=== PATIENT | male | born 1960 | race Caucasian/White ===

== ENCOUNTER → 2016-04-02 | Outpatient (CLI) | payer OTHER ==
[~2016-04-02] MED LIST: AGM875T PO; AMLO5TAB4 PO; ASPI81TA55 PO; CHOL100048 PO; CLON0.1T PO; CYAN500T2 PO; ESOM20TA PO; HYDR1TAB3 PO; HYDR25TA4 PO; NEBI1TAB PO; NF-ESOM40C PO; NFVALS90T PO; OMEG-109 PO; PEDI300T11 PO; VALS1TAB PO; VALS320T8 PO
--- NOTE | 2016-04-02 12:10 | Diagnostic Imaging Report ---
PROCEDURE: US Carotid Duplex Bilateral. TECHNIQUE: Multiple real-time grayscale images were obtained over the carotid arteries in various projections bilaterally. Additional duplex Doppler and color Doppler images were also obtained. INDICATION: Hypertension. Altered mental status. FINDINGS: There is mild plaque seen at the carotid bifurcation bilaterally seen on the grayscale images. Color Doppler demonstrates patency of the common, internal and external carotid arteries bilaterally. There is antegrade flow demonstrated in the vertebral arteries. Peak systolic velocities in the ICA on the right side are 93 cm/s, 92 cm/s and 104 cm/s. Velocities on the left are 88 cm/s, 85 cm/s and 77 cm/s from proximal to distal. ICA/CCA ratios are up to 0.9 on the right side and up to 0.8 on the left. Estimated underlying stenosis would be in the range of 0-25% bilaterally. IMPRESSION: Minimal atherosclerotic plaque with no significant underlying stenosis. Dictated by: Dictated on workstation # [id number]
== END ==
LOC: RAD 10:45
PROVIDERS: ATTEND Family Medicine
DX: I65.23 Occlusion and stenosis of bilateral carotid arteries (principal); I10 Essential (primary) hypertension
CPT/HCPCS: 93880

== ENCOUNTER 2016-04-23 19:50 | Observation (INO) | payer OTHER ==
[~2016-04-23] VITALS: Ht 172.7 cm; Wt 93.2 kg
[~2016-04-23 19:50] MED LIST changes: -AMLO5TAB4 PO; -ASPI81TA55 PO; -CHOL100048 PO; -CLON0.1T PO; -CYAN500T2 PO; -ESOM20TA PO; -HYDR25TA4 PO; -NEBI1TAB PO; -NFVALS90T PO; -OMEG-109 PO; -PEDI300T11 PO; -VALS1TAB PO
[2016-04-23] MEDS ORDERED: ASPI81TA55 PO (20:02)
[2016-04-23] MEDS ORDERED: CLON0.1T PO (20:05)
--- NOTE | 2016-04-23 20:12 | ED Cardiac General ---
History of Present Illness General Chief Complaint: Cardiac/General Problems Stated Complaint: CHEST DISCOMFORT/BP ISSUES Source: patient Exam Limitations: no limitations (SHANNON AL APRN) History of Present Illness Time seen by provider: 20:08 Initial Comments To ER with reports of hypertension, tachycardia, left-sided chest pain that radiates through to his back. This began a few hours ago around 5 p.m. He states he's had intermittent posterior headaches in the back of his neck and feels as though his hair is standing on end since March 22. 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 States he also had a CT scan of his head which he was told was normal. Since that time he's had this persistent feeling of "being unwell". Tonight while cooking dinner he had a sensation of intense anxiety, felt flushed and found his blood pressure to be elevated. He also had left-sided chest pain. He is a lifelong nonsmoker. Father had a heart attack at the age of 61. Primary care is Dr. Lizabeth Escudero. He is scheduled to see Dr. Olmedo in about 1 month for evaluation. Only medication is Diovan. He was given a prescription for amlodipine at the [facility] but only took it for a few days because of feeling poorly when taking it. He does have a prescription for when necessary clonidine also written by the [facility] which he has not yet used since being prescribed this on March 22. Timing/Duration: 1-3 hours, intermittent Severity: moderate Location: central Prior CP/Workup: angina NTG SL COATER SLATE: No ASA po COATER SLATE: No Associated Systoms: Chest PainNo Cough, No Diaphoresis, No Fever/Chills (SHANNON AL APRN) Allergies and Home Medications Allergies Coded Allergies: No Known Drug Allergies (Unverified , 12/24/10) Home Medications Aspirin 81 Mg Tablet. 81 MG PO DAILY (Reported) Clonidine HCl 0.1 Mg Tablet #30 0.1 MG PO PRN PRN PRN SYSTOLIC BLOOD PRESSURE ( Reported) available for days of elevated BP Esomeprazole Mag Trihydrate 40 Mg Capsule. #30 1 CAP PO DAILY (Reported) Valsartan 320 Mg Tablet 1 EACH PO DAILY (Reported) Review of Systems Constitutional: see HPI EENTM: No Symptoms Reported Respiratory: No Symptoms Reported Cardiovascular: See HPI Chest Pain Gastrointestinal: No Symptoms Reported Genitourinary: No Symptoms Reported Musculoskeletal: no symptoms reported Skin: no symptoms reported Psychiatric/Neurological: No Symptoms Reported Endocrine: No Symptoms Reported Hematologic/Lymphatic: No Symptoms Reported (SHANNON AL APRN) Psychiatric/Neurological: See HPIDenies Headache, Tingling (TRISH WINSTON MD) All Other Systems Reviewed Negative Unless Noted: Yes (TRISH WINSTON MD) Past Hoxncby-Hxrmuo-Ufvpty Hx Immunizations Up To Date Tetanus Booster (TDap): Unknown (SHANNON AL APRN) Surgeries HX Surgeries: Yes (acl repair bilat knees) (SHANNON AL APRN) Respiratory Hx Respiratory Disorders: No (SHANNON AL APRN) Cardiovascular Hx Cardiac Disorders: Yes (SHANNON AL APRN) Neurological Hx Neurological Disorders: No (SHANNON AL APRN) Reproductive System Hx Reproductive Disorders: No Sexually Transmitted Disease: No HIV/AIDS: No (SHANNON AL APRN) Genitourinary Hx Genitourinary Disorders: No (SHANNON AL APRN) Gastrointestinal Hx Gastrointestinal Disorders: Yes Gastrointestinal Disorders: Gastroesophageal Reflux (SHANNON AL APRN) Endocrine Hx Endocrine Disorders: No (SHANNON AL APRN) HEENT HX ENT Disorders: No (SHANNON AL APRN) Cancer Hx Cancer: No (SHANNON AL APRN) Psychosocial Hx Psychiatric Problems: No (SHANNON AL APRN) Integumentary HX Skin/Integumentary Disorder: No (SHANNON AL APRN) Blood Transfusions Hx Blood Disorders: No (SHANNON AL APRN) Reviewed Nursing Assessment Reviewed/Agree w Nursing PMH: Yes (TRISH WINSTON MD) Family Medical History Significant Family History: No Pertinent Family Hx (SHANNON AL APRN) Significant Family History: CAD Over 55 Years Old (TRISH WINSTON MD) Physical Exam Vital Signs Vital Sign - Last 12Hours 04/23/16 19:52 Temp 98.2 Pulse 68 Resp 16 B/P 175/105 Pulse Ox 97 O2 Delivery Room Air (TRISH WINSTON MD) Vital Signs Capillary Refill : (SHANNON AL APRN) General Appearance: No Apparent Distress WD/WN Anxious Other (he appears anxious, talking quickly and extensively about his 1-2 month history of symptoms ) HEENT: PERRL/EOMI TMs Normal Neck: Full Range of Motion Normal Inspection Respiratory: Chest Non Tender Lungs Clear Normal Breath Sounds No Accessory Muscle Use No Respiratory Distress Cardiovascular: Regular Rate, Rhythm Normal Peripheral Pulses Neurologic/Psychiatric: Alert Oriented x3 No Motor/Sensory Deficits Skin: Normal Color Warm/Dry (SHANNON AL APRN) Gastrointestinal: Non Tender Soft Extremity: Non Tender No Calf Tenderness No Pedal Edema (TRISH WINSTON MD ) Progress/Results/Core Measures Results/Orders Lab Results Laboratory Tests Test 04/23/16 19:56 04/23/16 20:56 Range/Units Activated Partial Thromboplast Time 26 24-35 SEC Alanine Aminotransferase (ALT/SGPT) 48 0-55 U/L Albumin 4.8 H 3.2-4.5 G/DL Alkaline Phosphatase 57 40-136 U/L Anion Gap 11 5-14 MMOL/L Aspartate Amino Transf (AST/SGOT) 38 H 5-34 U/L BUN/Creatinine Ratio 10 Basophils # (Auto) 0.0 0.0-0.1 10^3/uL Basophils (%) (Auto) 0 0-10 % Blood Urea Nitrogen 10 7-18 MG/DL Calcium Level 9.4 8.5-10.1 MG/DL Carbon Dioxide Level 21 21-32 MMOL/L Chloride Level 106 98-107 MMOL/L Creatinine 1.02 0.60-1.30 MG/DL D-Dimer < 0.27 0.00-0.49 UG/ML Eosinophils # (Auto) 0.5 H 0.0-0.3 10^3/uL Eosinophils (%) (Auto) 6 0-10 % Erythrocyte Sedimentation Rate 3 0-30 MM/HR Estimat Glomerular Filtration Rate > 60 Glucose Level 99 70-105 MG/DL Hematocrit 42 40-54 % Hemoglobin 15.2 13.3-17.7 G/DL INR Comment 1.0 0.8-1.4 Lymphocytes # (Auto) 2.1 1.0-4.0 X 10^3 Lymphocytes (%) (Auto) 25 12-44 % Magnesium Level 2.8 H 1.8-2.4 MG/DL Mean Corpuscular Hemoglobin 33 25-34 PG Mean Corpuscular Hemoglobin Concent 36 32-36 G/DL Mean Corpuscular Volume 91 80-99 FL Mean Platelet Volume 12.1 H 7.4-10.4 FL Monocytes # (Auto) 0.6 0.0-1.0 X 10^3 Monocytes (%) (Auto) 7 0-12 % Myoglobin 98.7 H 10.0-92.0 NG/ML Neutrophils # (Auto) 5.1 1.8-7.8 X 10^3 Neutrophils (%) (Auto) 62 42-75 % Platelet Count 172 130-400 10^3/uL Potassium Level 5.0 3.6-5.0 MMOL/L Prothrombin Time 12.6 12.2-14.7 SEC Red Blood Count 4.67 4.35-5.85 10^6/uL Red Cell Distribution Width 12.3 10.0-14.5 % Sodium Level 138 135-145 MMOL/L Total Bilirubin 1.0 0.1-1.0 MG/DL Total Protein 7.7 6.4-8.2 G/DL Troponin I < 0.30 < 0.30 <0.30 NG/ML White Blood Count 8.3 4.3-11.0 10^3/uL C-Reactive Protein High Sensitivity 0.11 0.00-0.50 MG/DL Lipase 17 8-78 U/L (TRISH WINSTON MD) Medications Given in ED Current Medications Medications Dose Ordered Sig/Kelly Route Start Time Stop Time Status Last Admin Dose Admin Aspirin 324 mg ONCE ONCE PO 04/23/16 20:15 04/23/16 20:16 DC 04/23/16 20:30 324 MG Lorazepam 0.5 mg ONCE ONCE IVP 04/23/16 20:15 04/23/16 20:16 DC 04/23/16 20:30 0.5 MG (TRISH WINSTON MD) Vital Signs/I&O Vital Sign - Last 12Hours 04/23/16 04/23/16 19:52 20:30 Temp 98.2 98.2 Pulse 68 Resp 16 B/P 175/105 Pulse Ox 97 O2 Delivery Room Air (TRISH WINSTON MD) Progress Note : Progress Note I have seen and evaluated the patient and agree with above except as indicated. I have reviewed and agree with plan of care. I have discussed the case with Shannon Al APRN. We will rule out cardiac abnormalities as well as evaluate d -dimer and CRP/sedimentation rate. EKG does not show any significant findings. Chest x-ray is negative. We will repeat troponin and EKG and anticipate follow-up with Dr. Olmedo sooner than 1 month. Patient's findings and concerns discussed with Dr. Olmedo by Shannon Al APRN. Dr. Olmedo would like to put him in overnight for observation with probable stress test in the morning. Patient agrees with plan. (TRISH WINSTON MD) Diagnostic Imaging Diagonstic Imaging: Xray Plain Films/CT/US/NM/MRI: chest Comments VIA [facility] [place], [place] NAME: [facility] REC#: [id number] PT STATUS: REG ER : 1960 PHYSICIAN: SHANNON AL APRN ADMIT DATE: 04/23/16/ER Draft Date of Exam:04/23/16 CHEST 1 VIEW, AP/PA ONLY INDICATION: Blood pressure elevation. Doesn't feel well. EXAMINATION: Chest 04/23/2016 COMPARISON: 09/26/2015. FINDINGS: The heart is minimally prominent. The pulmonary vasculature is normal in appearance. The lungs appear clear. No infiltrates or effusions are seen. There is no pneumothorax. IMPRESSION: There is no acute process. Dictated on workstation # [id number] Dict: 04/23/162047 Trans: 04/23/162058 [facility] [id number] Interpreted by: CARMELO MCCOY MD Electronically signed by: (TRISH WINSTON MD) Departure Communication Time/Spoke to Admitting Phy: 22:[address] Olmedo. We will admit the patient Progress Notes 2211-patient reports that he feels much better at this time. He was given 324 mg of aspirin and 0.5 g of Ativan IV while in the emergency room. On arrival blood pressure 160/100, currently 139/87. (SHANNON AL APRN) Impression Impression: Primary Impression: Hypertension Additional Impression: Chest pain Disposition: ADMITTED INPATIENT Condition: Stable Decision to Admit Reason: Admit from ER (General) Decision to Admit/Date: Apr 23, 2016 Time/Decision to Admit Time: 22:16 (SHANNON AL APRN) Departure-Patient Inst. Referrals: LIZABETH ESCUDERO MD (PCP/Family) Primary Care Physician SHANNON AL APRN Apr 23, 2016 20:11 TRISH WINSTON MD Apr 23, 2016 21:27 Referrals: LIZABETH ESCUDERO MD (PCP/Family) Primary Care Physician SHANNON AL APRN Apr 23, 2016 20:11 TRISH WINSTON MD Apr 23, 2016 21:27
[2016-04-23 20:13] LABS: BASOPHILS % (AUTO) 0 % (0-10); EOSINOPHILS # (AUTO) 0.5 10^3/uL (0.0-0.3); EOSINOPHILS % (AUTO) 6 % (0-10); LYMPHOCYTES # (AUTO) 2.1 X 10^3 (1.0-4.0); LYMPHOCYTES % (AUTO) 25 % (12-44); MEAN CORPUSCULAR HEMOGLOBIN 33 PG (25-34); MEAN CORPUSCULAR HGB CONC 36 G/DL (32-36); MEAN CORPUSCULAR VOLUME 91 FL (80-99); MEAN PLATELET VOLUME 12.1 FL (7.4-10.4); MONOCYTES # (AUTO) 0.6 X 10^3 (0.0-1.0); MONOCYTES % (AUTO) 7 % (0-12); NEUTROPHILS # (AUTO) 5.1 X 10^3 (1.8-7.8); NEUTROPHILS % (AUTO) 62 % (42-75); PLATELET COUNT 172 10^3/uL (130-400); RED BLOOD COUNT 4.67 10^6/uL (4.35-5.85); RED CELL DISTRIBUTION WIDTH 12.3 % (10.0-14.5); WHITE BLOOD COUNT 8.3 10^3/uL (4.3-11.0)
[2016-04-23] MEDS ORDERED: LORazepam INJ 2 MG/ML (ATIVAN) VIAL IVP ONE (20:15)
[2016-04-23] MEDS ORDERED: ASPIRIN 81 MG CHEW (CHILDREN'S ASA) PO ONE (20:15)
[2016-04-23 20:16] LABS: PROTHROMBIN TIME PATIENT 12.6 SEC (12.2-14.7)
[2016-04-23 20:25] LABS: ALANINE AMINOTRANSFERASE 48 U/L (0-55); ALBUMIN 4.8 G/DL (3.2-4.5); ANION GAP 11 MMOL/L (5-14); ASPARTATE AMINO TRANSFERASE 38 U/L (5-34); BLOOD UREA NITROGEN 10 MG/DL (7-18); BUN/CREATININE RATIO 10; CALCIUM 9.4 MG/DL (8.5-10.1); CARBON DIOXIDE 21 MMOL/L (21-32); CHLORIDE 106 MMOL/L (98-107); CREATININE SERUM 1.02 MG/DL (0.60-1.30); GFR ESTIMATED > 60; GLUCOSE 99 MG/DL (70-105); MAGNESIUM 2.8 MG/DL (1.8-2.4); SODIUM 138 MMOL/L (135-145); TOTAL PROTEIN 7.7 G/DL (6.4-8.2)
[2016-04-23 20:31] LABS: MYOGLOBIN SERUM 98.7 NG/ML (10.0-92.0)
--- NOTE | 2016-04-23 20:59 | Diagnostic Imaging Report ---
INDICATION: Blood pressure elevation. Doesn't feel well. EXAMINATION: Chest 04/23/2016 COMPARISON: 09/26/2015. FINDINGS: The heart is minimally prominent. The pulmonary vasculature is normal in appearance. The lungs appear clear. No infiltrates or effusions are seen. There is no pneumothorax. IMPRESSION: There is no acute process. Dictated by: Dictated on workstation # [id number]
[2016-04-23 21:28] LABS: LIPASE 17 U/L (8-78); hs C REACTIVE PROTEIN 0.11 MG/DL (0.00-0.50)
[2016-04-23 21:34] LABS: TROPONIN I < 0.30 NG/ML (<0.30)
[2016-04-23 23:20] VITALS: BP 124/86
[2016-04-24] VITALS: BP 127/92
[2016-04-24 04:00] VITALS: BP 132/85
[2016-04-24 04:55] LABS: CHOLESTEROL 141 MG/DL (< 200); DIRECT LDL 71 MG/DL (1-129); TRIGLYCERIDES 419 MG/DL (<150); VLDL CHOLESTEROL 84 MG/DL (5-40)
--- NOTE | 2016-04-24 06:54 | Cardiology History & Physical ---
HPI-Cardiology Cardiology Consultation Date of Consultation 04/24/16 Date of Admission Indication: chest pain HPI 56-year-old gentleman with history of hypertension, has been having episodes of lightheadedness and dizziness, reported one episode while he was driving her motorcycle, he felt weird then he noticed that he has changed laying, continue to feel shaky until he got home, had another episode while he was traveling with his . Blood sugar and blood pressure were okay. Has been having occasional episodes of chest pain, came into the emergency room with mild chest discomfort, denied any palpitation, denied any full syncope. Patient is fairly concerned about his condition, expressed that he did not feel normal for the last 2-3 months. Father had history of heart disease, patient suffer from snoring, no known history of sleep apnea PMH-Cardiology Immunizations Up To Date Tetanus Booster (DTap): Unknown Seasonal Allergies Seasonal Allergies: Yes Surgeries HX Surgeries: Yes (acl repair bilat knees, hernia surgeries (umbilical mad inguinal)) Respiratory Hx Respiratory Disorders: No Cardiovascular Hx Cardiovascular Disorders: Yes Cardiac Disorders: Hypertension Neurological Hx Neurological Disorders: No Reproductive System Hx Reproductive Disorders: No Sexually Transmitted Disease: No HIV/AIDS: No Genitourinary Hx Genitourinary Disorders: No Gastrointestinal Hx Gastrointestinal Disorders: Yes Gastrointestinal Disorders: Gastroesophageal Reflux Musculoskeletal Hx Musculoskeletal Disorders: No Endocrine Hx Endocrine Disorders: No HEENT HX ENT Disorders: No Cancer Hx Cancer: No Psychosocial Hx Psychiatric Problems: No Integumentary HX Skin/Integumentary Disorder: No Blood Transfusions Hx Blood Disorders: No Other PMHx Other PMHx: hypertension Social History Patient Social History Marrital Status: Employed/Student: employed Alcohol Use: Occasionally Uses Recreational Drug Use: No Smoking: Never smoker Recent Foreign Travel: No Contact w/other who traveled: No Recent Infectious Disease Expo: No Family Hx Significant Family History: CAD Over 55 Years Old Family History: Abdominal aortic aneurysm 19 MOTHER, , Age:62, Onset:60 years & older Myocardial infarction 19 FATHER, , Age:61, Onset:60 years & older ROS-Cardiology Review of Systems General: No Chills, No Night Sweats, Fatigue MalaiseNo Appetite HEENT: No Head Aches, No Visual Changes, No Eye Pain, No Ear Pain, No Dysphasia , No Sinus Congestion, No Post Nasal Drip, No Sore Throat Pulmonary: No Dyspnea, No Cough, No Pleuritic Chest Pain Cardiovascular: : Chest Pain: Lt HeadednessNo: Edema, Orthopnea, Palpitations, Paroxysmal Noc. Dyspnea Gastrointestinal: No: Abdominal Pain, Constipation, Diarrhea, Hematochezia, Melena, Nausea, Vomiting Genitourinary: No Dysuria, No Frequency, No Incontinence, No Hematuria, No Retention Musculoskeletal: No: arm pain, back pain, foot pain, hand pain, leg pain, neck pain, shoulder pain Neurological: No: Change in speech, Confusion, Incoordination, Numbness, Seizures, Weakness Home Medications & Allergies Allergies: Coded Allergies: No Known Drug Allergies (Unverified , 12/24/10) Home Medication List Reviewed: Yes Exam-Cardiology Vital Signs Vital Signs Date Time Temp Pulse Resp B/P Pulse Ox O2 Delivery O2 Flow Rate FiO2 04/24/16 04:00 95 Room Air 04/24/16 04:00 97.4 54 16 132/85 Exam General Appearance: Alert, Oriented X3, Cooperative, No Acute Distress HEENT: Atraumatic, PERRLA Respiratory: Clear to Auscultation, Normal Air Movement Cardiovascular: Regular Rate, Normal S1, Normal S2, No Murmurs Abdominal: Normal Bowel Sounds, Soft, No Tenderness, No Hepatosplenomegaly, No Masses Extremities: No Clubbing, No Cyanosis, No Edema, Normal Pulses, No Tenderness/ Swelling Skin: No Rashes, No Breakdown, No Significant Lesion Neuro: Normal Gait, Normal Speech, Strength at 5/5 X4 Ext, Normal Tone, Sensation Intact Psych/Mental Status: Mental Status NL, Mood NL Results Labs Labs Laboratory Tests 04/23/16 19:56: Activated Partial Thromboplast Time 26, Alanine Aminotransferase (ALT/SGPT) 48, Albumin 4.8H, Alkaline Phosphatase 57, Anion Gap 11, Aspartate Amino Transf (AST /SGOT) 38H, BUN/Creatinine Ratio 10, Basophils # (Auto) 0.0, Basophils (%) (Auto ) 0, Blood Urea Nitrogen 10, Calcium Level 9.4, Carbon Dioxide Level 21, Chloride Level 106, Creatinine 1.02, D-Dimer < 0.27, Eosinophils # (Auto) 0.5H, Eosinophils (%) (Auto) 6, Erythrocyte Sedimentation Rate 3, Estimat Glomerular Filtration Rate > 60, Glucose Level 99, Hematocrit 42, Hemoglobin 15.2, INR Comment 1.0, Lymphocytes # (Auto) 2.1, Lymphocytes (%) (Auto) 25, Magnesium Level 2.8H, Mean Corpuscular Hemoglobin 33, Mean Corpuscular Hemoglobin Concent 36, Mean Corpuscular Volume 91, Mean Platelet Volume 12.1H, Monocytes # (Auto) 0.6, Monocytes (%) (Auto) 7, Myoglobin 98.7H, Neutrophils # (Auto) 5.1, Neutrophils (%) (Auto) 62, Platelet Count 172, Potassium Level 5.0, Prothrombin Time 12.6, Red Blood Count 4.67, Red Cell Distribution Width 12.3, Sodium Level 138, Total Bilirubin 1.0, Total Protein 7.7, Troponin I < 0.30, White Blood Count 8.3 04/23/16 20:56: Troponin I < 0.30, C-Reactive Protein High Sensitivity 0.11, Lipase 17 04/24/16 04:13: Cholesterol Level 141, HDL Cholesterol 27L, LDL Cholesterol Direct 71, Triglycerides Level 419H, VLDL Cholesterol 84H A/P-Cardiology Admission Diagnosis Chest pain nonspecific etiology Hypertension Dizziness Snoring Assessment/Plan Chest pain nonspecific etiology, atypical in presentation, increased risk for coronary artery disease, EKG did not show any acute abnormality, I am planning to evaluate echocardiogram and stress test. Hypertension, labile blood pressure. Has been maintained on Diovan, previously was unable to tolerate hydrochlorothiazide or Norvasc. I will monitor his blood pressure, monitor his response to stress test, evaluate echocardiogram Episode of dizziness and lightheadedness, probably orthostatic hypotension. Sinus bradycardia, patient's heart rate is in the 50s. Asymptomatic and monitoring heart rate, evaluate response to exercise stress test Snoring, large neck. Hypertension, increased risk of sleep apnea, patient will need sleep study as an outpatient Family history of heart disease. BMI is 31, we discussed weight loss and exercise. Clinical Quality Measures AMI/AHF: ASA po Prior to arrival: No DVT/VTE Risk/Contraindication: Risk Factor Score Per Nursin RFS Level Per Nursing on Admit: 2=Moderate JOSE DE JESUS SPEAR MD Apr 24, 2016 06:54
[2016-04-24] MEDS ORDERED: FLU TRIvalent (5 YOA+) 2016-17 (AFLURIA) 0.5 ML IM ONE (07:45)
[2016-04-24 08:05] VITALS: BP 121/79
[2016-04-24] MEDS ORDERED: NFVALS90T PO (09:08)
[2016-04-24] MEDS ORDERED: ESOM20TA PO (09:08)
[2016-04-24 11:21] VITALS: BP 129/88
[2016-04-24] MEDS ORDERED: AMLO5TAB4 PO (12:51)
--- NOTE | 2016-04-24 13:00 | Discharge Summary ---
Diagnosis/Chief Complaint Date of Admission Apr 23, 2016 at 22:37 Date of Discharge Apr 24, 2016 Discharge Date: Discharge Diagnosis CP HTN Dizziness Sinus Bradycardia Discharge Summary Hospital Course Hospital Course Chest pain nonspecific etiology, atypical in presentation, increased risk for coronary artery disease, EKG did not show any acute abnormality, I am planning to evaluate echocardiogram and stress test. Hypertension, labile blood pressure. Has been maintained on Diovan, previously was unable to tolerate hydrochlorothiazide or Norvasc. I will monitor his blood pressure, monitor his response to stress test, evaluate echocardiogram Episode of dizziness and lightheadedness, probably orthostatic hypotension. Sinus bradycardia, patient's heart rate is in the 50s. Asymptomatic and monitoring heart rate, evaluate response to exercise stress test Snoring, large neck. Hypertension, increased risk of sleep apnea, patient will need sleep study as an outpatient Family history of heart disease. BMI is 31, we discussed weight loss and exercise. Labs Laboratory Tests 04/23/16 19:56: Albumin 4.8H, Aspartate Amino Transf (AST/SGOT) 38H, Eosinophils # (Auto) 0.5H, Magnesium Level 2.8H, Mean Platelet Volume 12.1H, Myoglobin 98.7H 04/23/16 20:56: 04/24/16 04:13: HDL Cholesterol 27L, Triglycerides Level 419H, VLDL Cholesterol 84H Procedures None. Discharge Physical Examination Allergies: Coded Allergies: No Known Drug Allergies (Unverified , 12/24/10) Vitals & I&Os Vital Signs Date Time Temp Pulse Resp B/P Pulse Ox O2 Delivery O2 Flow Rate FiO2 04/24/16 14:05 65 18 129/88 98 04/24/16 11:21 97.7 Room Air General Appearance: Alert, Oriented X3, Cooperative, No Acute Distress HEENT: Atraumatic, PERRLA Respiratory: Clear to Auscultation, Normal Air Movement Cardiovascular: Regular Rate, Normal S1, Normal S2, No Murmurs Abdominal: Normal Bowel Sounds, Soft, No Tenderness, No Hepatosplenomegaly, No Masses Extremities: No Clubbing, No Cyanosis, No Edema, Normal Pulses, No Tenderness/ Swelling Skin: No Rashes, No Breakdown, No Significant Lesion Neuro: Normal Gait, Normal Speech, Strength at 5/5 X4 Ext, Normal Tone, Sensation Intact, Cranial Nerves 3-12 NL, Reflexes 2+ Psych/Mental Status: Mental Status NL, Mood NL Discharge Home Medications Reviewed and agree with Discharge Medication list on patient's Discharge Instruction sheet Instructions to Patient/Family Please see electonic discharge instructions given to patient. Clinical Quality Measures AMI/AHF: ASA po Prior to arrival: No DVT/VTE Risk/Contraindication: Risk Factor Score Per Nursin RFS Level Per Nursing on Admit: 2=Moderate BRIE MITCHELL Apr 24, 2016 13:00
[2016-04-24 14:05] VITALS: BP 129/88
--- NOTE | 2016-04-25 08:13 | STRESS TEST ---
PROCEDURE PHYSICIAN: JOSE DE JESUS SPEAR DATE OF PROCEDURE: 04/24/2016 EXERCISE STRESS ECHOCARDIOGRAM REPORT: REFERRING PHYSICIAN: Dr. Lizabeth Escudero. INDICATION: Chest pain. BASELINE HEART RATE: 53 BASELINE BLOOD PRESSURE: 121/80 BASELINE EKG: Sinus rhythm with no ischemic changes. IN SUMMARY: The patient started exercising with a baseline heart rate, blood pressure and EKG mentioned above. He was able to exercise for 9 minutes on standard Shai protocol, achieving maximum heart rate of 151, which is 92% of maximum expected heart rate. With peak exercise level, EKG was showing minimal nondiagnostic changes. Blood pressure was 201/87. During recovery, heart rate and blood pressure returned to baseline. EKG returned to baseline. Echocardiographic images were acquired and reviewed in the parasternal long axis parasternal short axis, apical 4 chamber and apical 2 chamber views. Review of the images showed normal left ventricular size with normal contractility. Systolic function appeared to be normal. Estimated ejection fraction 60%. IN CONCLUSION: 1. Good exercise tolerance a total of 9 minutes on standard Shai protocol. Total of 10.1 METs, achieving 92% of maximum expected heart rate. 2. Appropriate heart rate response to exercise with hypertensive response to exercise, returned to baseline during recovery. 3. Minimal nondiagnostic EKG changes with exercise, returned to baseline during recovery. 4. Normal echocardiographic images at rest and with peak stress level with no ischemic changes. Job ID: [id number] Dictated Date: 04/24/2016 17:27:25 Cotton Ball Machine Tender Date: 04/25/2016 08:11:01 / gera
--- NOTE | 2016-04-25 09:11 | ECHOCARDIOGRAPHY REPORT ---
PROCEDURE PHYSICIAN: JOSE DE JESUS SPEAR DATE OF PROCEDURE: 04/24/2016 TWO DIMENSIONAL ECHOCARDIOGRAM REPORT PRIMARY PHYSICIAN: OTHER PHYSICIAN: REFERRING PHYSICIAN: Dr. Lizabeth Escudero ORDERING PHYSICIAN: INDICATION FOR THE PROCEDURE: Chest pain. MEASUREMENTS DERIVED VALUES LV DIAMETER (LAX) NORMALS NORMALS Diastolic 4 (3.6-5.2) Eject. Fract. 60% (60%+/-6%) Systolic (2.3-3.9) Diastolic Vol. % Shortening (0.22-0.42) Systolic Vol. Aortic Root IVS THICKNESS Diastolic 1.2 (0.6-1.1) LVPW THICKNESS Diastolic 1 (0.6-1.1) LA DIAMETER Systolic 4.2 (2.1-3.7) FINDINGS: 1. Technical quality is good. 2. The left ventricle is normal in size with normal contractility. Systolic function appeared to be normal. Estimated ejection fraction 60%. Diastolic dysfunction is suggested by Doppler. 3. The left atrium is normal in size. No clot or thrombus were seen within the left atrium. 4. The right atrium and right ventricle are normal in size. No clot or thrombus were seen within the right side. 5. Mitral valve is normal in morphology with mild mitral regurgitation noted by color Doppler flow. Doppler across the mitral valve showed equalization of E and A, which is suggestive diastolic dysfunction. 6. Aortic valve is trileaflet with normal opening and closing pattern. No significant aortic stenosis or regurgitation was seen. 7. Tricuspid valve is normal in morphology with mild tricuspid regurgitation noted by color Doppler flow. Doppler across tricuspid valve estimated pulmonary artery pressure of 23+ right atrial pressure. 8. Pulmonic valve is functioning normally. 9. No pericardial effusion. IN CONCLUSION: 1. Normal left ventricular size and systolic function. Estimated ejection fraction 60%. Diastolic dysfunction is suggested by Doppler. 2. Left atrium is in the upper normal limit in size. 3. Mild mitral and tricuspid regurgitation. 4. Estimated pulmonary artery pressure of 30 mmHg. Job ID: [id number] Dictated Date: 04/24/2016 17:29:42 Mechanic Driver Date: 04/25/2016 09:09:11 / gera
== END 2016-04-24 12:49 | disposition home or self-care (01) ==
LOC: EDUNIT# 19:50 → ER 19:52 → UNDOADMOB 22:37 → ICU 22:37 → UNDODISOB 04-24 14:05
PROVIDERS: ADMIT Internal Medicine Cardiovascular Disease; ATTEND Internal Medicine Cardiovascular Disease
DX: R07.89 Other chest pain (principal); I10 Essential (primary) hypertension; R42 Dizziness and giddiness; R00.1 Bradycardia, unspecified; R06.83 Snoring; Z82.49 Family history of ischemic heart disease and other diseases of the circulatory system; K21.9 Gastro-esophageal reflux disease without esophagitis
CPT/HCPCS: 36415; 71010; 80053; 80061; 83690; 83735; 83874; 84484; 85025; 85379; 85610; 85652; 85730; 86141; 93005; 93041; 93306; 96374; G0378

== ENCOUNTER 2016-07-03 07:52 | Day surgery (SDC) | payer OTHER ==
[~2016-07-03] VITALS: Ht 172.7 cm; Wt 97.5 kg
[2016-07-03] VITALS (11 sets, daily range): BP systolic 107–142; BP diastolic 72–84
[~2016-07-03 07:52] MED LIST changes: +AMLO5TAB4 PO; +ASPI81TA55 PO; +CLON0.1T PO; +ESOM20TA PO; +NFVALS90T PO
[2016-07-03] MEDS ORDERED: NS IV 1000 ML 1,000 ML ONE (08:03)
[2016-07-03] MEDS ORDERED: LIDOCAINE 1% INJ 20 ML (XYLOCAINE) VIAL ONE (08:03)
[2016-07-03] MEDS ORDERED: HEParin (CATH LAB) 2,000 ML IV ONE (08:03)
[2016-07-03] MEDS ORDERED: NS IV 1000 ML 1,000 ML IV SCH ×3 (08:08→11:40)
[2016-07-03 08:36] LABS: MEAN PLATELET VOLUME 11.8 FL (7.4-10.4); RED BLOOD COUNT 4.53 10^6/uL (4.35-5.85); RED CELL DISTRIBUTION WIDTH 12.7 % (10.0-14.5); WHITE BLOOD COUNT 6.6 10^3/uL (4.3-11.0)
[2016-07-03 08:45] LABS: INR 1.1 (0.8-1.4); PROTHROMBIN TIME PATIENT 13.5 SEC (12.2-14.7)
[2016-07-03 08:56] LABS: ALANINE AMINOTRANSFERASE 40 U/L (0-55); ALBUMIN 4.5 G/DL (3.2-4.5); ANION GAP 10 MMOL/L (5-14); ASPARTATE AMINO TRANSFERASE 25 U/L (5-34); BILIRUBIN,TOTAL 1.1 MG/DL (0.1-1.0); BLOOD UREA NITROGEN 13 MG/DL (7-18); BUN/CREATININE RATIO 13; CARBON DIOXIDE 25 MMOL/L (21-32); CHLORIDE 106 MMOL/L (98-107); CHOLESTEROL 161 MG/DL (< 200); DIRECT LDL 109 MG/DL (1-129); GFR ESTIMATED > 60; GLUCOSE 100 MG/DL (70-105); POTASSIUM 3.9 MMOL/L (3.6-5.0); SODIUM 141 MMOL/L (135-145); TRIGLYCERIDES 123 MG/DL (<150); VLDL CHOLESTEROL 25 MG/DL (5-40)
--- NOTE | 2016-07-03 09:06 | Diagnostic Imaging Report ---
Portable erect AP chest at 8:39 AM. INDICATION: Preop heart catheterization. The heart size is within normal limits and stable when compared to 04/23/2016. The small area of increased density near the apex of the heart seen on the previous chest exam of 09/26/2015, is again visualized and no different. I suspect that this is secondary to a small amount of scar formation and/or chronic atelectasis. The lungs remain generally clear. There is no sign of failure, pneumonia, or pleural effusion to suggest an acute abnormality. The mediastinum is not widened. The osseous structures are intact. IMPRESSION: There is no evidence for an acute cardiopulmonary abnormality. Dictated by: Dictated on workstation # [id number]
[2016-07-03] MEDS ORDERED: NEBI1TAB PO (09:22)
[2016-07-03] MEDS ORDERED: CYAN500T2 PO (09:22)
[2016-07-03] MEDS ORDERED: PEDI300T11 PO (09:22)
[2016-07-03] MEDS ORDERED: CHOL100048 PO (09:22)
[2016-07-03] MEDS ORDERED: OMEG-109 PO (09:22)
[2016-07-03] MEDS ORDERED: MIDAZOLAM 5 MG/5 ML (VERSED) VIAL ONE (10:54)
[2016-07-03] MEDS ORDERED: fentaNYL INJECTION 100 MCG/2 ML AMP ONE (10:54)
--- NOTE | 2016-07-03 11:26 | Cardiac Procedure Note-CS/ASA ---
Pre-Procedure Note Pre-Op Procedure Note H&P Reviewed The H&P was reviewed, patient examined and no changes noted. Date H&P Reviewed: Jul 03, 2016 Time H&P Reviewed: : Conscious Sedation Pre-Proced Time Reviewed: ASA Class: 3 Airway Mallampati Classification: ([place] appropriate class) I. II. III, IV Lungs Heart ASA score ASA 1: a normal healthy patient ASA 2: a patient with a mild systemic disease (mid diabetes, controlled hypertension, obesity x ASA 3: a patient with a severe systemic disease that limits activity (angina , COPD, prior Myocardial infarction) ASA 4: a patient with an incapacitating disease that is a constant threat to life (CHF, renal failure) ASA 5: a moribund patient not expected to survive 24 hrs. (ruptured aneurysm) ASA 6: a declared brain patient whose organs are being harvested. For emergent operations, add the letter E after the classification Grade 3 Sedation Plan: Analgesia, Amnesia, Plan communicated to team members, Discussed options with patient/fam, Discussed risks with patient/fam Note The patient is an appropriate candidate to undergo the planned procedure, sedation, and anesthesia. The patient immediately re-assessed prior to indication. JOSE DE JESUS SPEAR MD Jul 03, 2016 11:26
--- NOTE | 2016-07-03 11:44 | Discharge Inst-Post CATH ---
Discharge Inst-CATH Post Cardiac Cath D/C Inst Follow Up/Plan Appointment with Dr Olmedo's office in 2 weeks CARDIAC CATH DISCHARGE INSTRUCTIONS *Hold Metformin for 48 hours post heart cath. ACTIVITY * Go Home directly and rest. * Limit activity of the leg (or wrist if it was used) for 7 days including aerobics, swimming, jogging, bicycling, etc. * Restrict stair-climbing for 7 days if possible, if not, climb up with your non -cath leg, then bring together on the same step. * Avoid lifting, pushing, pulling or excessive movement of the affected extremity for 7 days. * Customary sexual activity may be resumed after 2 days-use caution not to use a position that strains or causes pain to the affected extremity. * No driving for 24 hours. * NO SMOKING. * Avoid straining for bowel movements for 7 days. * Gentle walking on level ground is allowed. * Returning to work will depend on the type of procedure and the results. Your doctor will discuss this with you. CALL YOUR DOCTOR FOR ANY OF THE FOLLOWING: *If bleeding from the puncture site occurs- Apply gentle pressure to site with clean cloth and call your doctor or EMS. * If a knot or lump forms under the skin, increases in size, or causes pain. * If bruising appears to be worsening or moving further down your leg instead of disappearing. * Temperature above 101 F. CARE OF YOUR GROIN INCISION; * Bruising or purple discoloration of the skin near the puncture site is common. * You may shower only, no bathtub bathing for 5 days. Be careful to avoid slipping as your leg may feel stiff. * If a closure device was used on your femoral artery, please see the attached guide regarding care of the device and your leg. * REMOVE the dressing from your groin the next day after your procedure in the shower. CARE OF YOUR WRIST INCISION; * Bruising or purple discoloration of the skin near the puncture site is common. * You may shower. * DO NOT submerge wrist. * Remove dressing in 24 hours. JOSE DE JESUS OLMEDO MD Jul 03, 2016 11:44
[2016-07-03] MEDS ORDERED: PATIENT MAY USE OWN MEDS, ALL PO SCH (11:45)
[2016-07-03] MEDS ORDERED: HYDR25TA4 PO (11:53)
[2016-07-03] MEDS ORDERED: AMLO5TAB4 PO (11:53)
[2016-07-03] MEDS ORDERED: VALS1TAB PO (12:24)
--- NOTE | 2016-07-03 14:06 | DISCHARGE SUMMARY ---
PROCEDURE PHYSICIAN: JOSE DE JESUS SPEAR DATE OF PROCEDURE: 07/03/2016 REFERRING PHYSICIAN: Dr. Lizabeth Escudero. BRIEF HISTORY: Mr. York is a 56-year-old gentleman with recurrent chest pain, generalized fatigue and shortness of breath. He has been having extreme fatigue and chest pain. He has multiple risk factors. I decided to proceed with cardiac catheterization evaluate his coronary anatomy. PROCEDURE NOTE: After explaining the procedure to the patient, all pros and cons were explained. All questions were answered. The patient signed a consent and then he was placed on the cardiac catheterization laboratory. The right groin was prepped in a sterile fashion. Local anesthesia applied to right groin. 6-American sheath was placed in the right femoral artery. Combination of right and left Zelda catheter were used to left coronary system. Multiple views were obtained. Pigtail catheter advanced to the left ventricular cavity. Left ventriculogram was done. Pullback LV to aorta was done. Abdominal aortogram was done. At the end of the procedure, sheath was removed. Mynx device deployed. Hemostasis achieved. Total contrast used was 57 mL. Total radiation dose was 193 mGy. FINDINGS: HEMODYNAMICS: LV pressure 114/20, end-diastolic pressure of 20, aortic pressure 119/52, mean of 76. ANATOMY: 1. LEFT MAIN CORONARY ARTERY: The left main coronary artery is bifurcating to left anterior descending and left circumflex artery with no obstructive disease. 2. LEFT ANTERIOR DESCENDING ARTERY: The left anterior descending artery is moderate in size. Slow flow in the LAD due to small vessel disease. 3. LEFT CIRCUMFLEX ARTERY: The left circumflex artery is moderate in size with slow flow. No significant obstructive disease. 4. RIGHT CORONARY ARTERY: The right coronary artery is dominant artery, tortuous artery with slow flow, probably due to small vessel disease. 5. LEFT VENTRICULOGRAM: Left ventriculogram was done in the right anterior oblique position. The left ventricle is normal in size. Mild to moderate left ventricular hypertrophy was noted. Estimated ejection fraction 60%. 6. ABDOMINAL AORTOGRAM: Abdominal aortogram was done in AP position. Abdominal aorta is normal in size. No dissection or aneurysm. Origin of the superior mesenteric artery, inferior mesenteric artery and renal arteries appeared normal. CONCLUSION: 1. Slow flow in the coronary system due to small vessel disease, nonobstructive disease. 2. Left ventricular hypertrophy with normal systolic function. Estimated ejection fraction 60%. Diastolic dysfunction with elevated left ventricular end-diastolic pressure. Hypertensive heart disease. 3. Normal abdominal aorta and renal arteries. DISCUSSION AND RECOMMENDATION: I will continue maximizing medical therapy. I do not think that the patient will be able to tolerate [place] due to the bradycardia. His heart rate was noted to be in the 40s. FINAL DIAGNOSES: 1. Coronary artery disease. 2. Hypertension. 3. Hypertensive heart disease. 4. Generalized fatigue and loss of energy. Job ID: [id number] Dictated Date: 07/03/2016 11:48:12 Public Area Supervisor Date: 07/03/2016 14:04:39/cesar
--- OUTSIDE RECORDS SUMMARY | 2016-08-04 16:36 | XMS REPORT ---
Author HOMER Hodges [facility] [employer] Address Unknown Phone Unavailable Care Team Providers Care Workers' Compensation Hearings Officer Name Role Phone HOMER SOTO CP Unavailable Allergies No Known Allergies Problems Problem Type Condition ICD-9 Code Onset Dates Condition Status Assessment Dental examination V72.2 Active Medications No Known Medications Procedures Procedure Coding System Code Date INTRAORL-PERIAPICAL 1 FILM 82472 CPT-4 D0220 Nov 23, 2014 INTRAORL-PERIAPICAL EA ADD FILM CPT-4 D0230 Nov 23, 2014 COMP ORAL EVALUATION - NEW/EST PT CPT-4 D0150 Nov 23, 2014 BITEWINGS - FOUR FILMS CPT-4 D0274 Nov 23, 2014 INTRAORL-PERIAPICAL EA ADD FILM CPT-4 D0230 Nov 23, 2014 PROPHYLAXIS - ADULT CPT-4 D1110 Nov 23, 2014 PANORAMIC FILM SEE ALSO CODE 18237 CPT-4 D0330 Nov 23, 2014 Results No Known Results Summary Purpose eClinicalWorks Submission
--- OUTSIDE RECORDS SUMMARY | 2016-08-04 16:36 | XMS REPORT | Continuity of Care Document ---
Author Author [facility] Organization [facility] Address Unknown Phone Unavailable Care Team Providers Care Director Of Intercollegiate Athletics Name Role Phone MOJGAN GONZALES DO PP Insurance Providers Payer Name Policy Number Subscriber Name Relationship [facility] [id number] Arnie Fowler 01 Self / Same As Patient Advance Directives Directive Response Recorded Date Advance Directives N 07/15/12 3:17pm Organ Donor N 07/15/12 3:17pm Problems No Known Problems or Medical conditions. Social History History Response Recorded Date/Time Alcohol Use Occasionally Uses 07/12/12 12 :16am Recreational Drug Use N 07/12/12 12:16am Sexually Transmitted Disease N 07/12/12 12:16am HIV/AIDS N 07/12/12 12:16am Allergies, Adverse Reactions, Alerts Allergen Type Severity Reaction Last Updated No Known Drug Allergies 12/24/10 Medications Medication Dose Units Route Sig Qty Days Amoxicillin/Clavulanate Potassium (Augmentin 875-125 Tablet) 1 Tab PO BID 5 Esomeprazole Magnesium (Nexium) 1 Cap PO DAILY 30 Valsartan (Diovan 320 Mg) 1 Each PO DAILY Hydrocodone Bit/Acetaminophen (Vicodin Es 7.5-750 Mg Tablet) 1 Each PO Q6H Immunizations Name Given Type rabies, intramuscular injection 07/26/12 A rabies, intramuscular injection 07/26/12 A Response Recorded Date/Time Status not known Unknown Results No Known Relevant Diagnostic Tests, Laboratory Data and/or Discharge Summary. Procedures Procedure Code Date DIAGNOSTIC COLONOSCOPY 36164 12/24/10 UPPER GI ENDOSCOPY BIOPSY 63366 12/24/10 Encounters Encounter Location Date/Time Departed Emergency Room [facility] 8:08pm
--- OUTSIDE RECORDS SUMMARY | 2016-08-04 16:37 | XMS REPORT | Continuity of Care Document ---
Author Author [facility] Organization [facility] Address Unknown Phone Unavailable Allergies Active Description Code Type Severity Reaction Onset Reported/Identified Relationship to Patient Clinical Status Yes No Known Drug Allergies [id number] Drug Allergy Unknown N/ A 12/24/2010 Medications Problems Date Dx Coded Attending Type Code Diagnosis Diagnosed By 12/24/2010 Ot 530.81 ESOPHAGEAL REFLUX 12/24/2010 Ot 578.1 BLOOD IN STOOL 12/24/2010 Ot V12.72 PERSONAL HISTORY OF COLONIC POLYPS 12/24/2010 Ot V16.0 FAMILY HX-GI MALIGNANCY 11/21/2011 Ot 787.02 NAUSEA ALONE 11/21/2011 Ot E935.2 ADV EFF OPIATES 07/12/2012 Ot 882.0 OPEN WOUND OF HAND 07/12/2012 Ot E000.8 OTHER EXTERNAL CAUSE STATUS 07/12/2012 Ot E849.0 ACCIDENT IN HOME 07/12/2012 Ot E906.0 DOG BITE 07/12/2012 Ot V04.5 VACCIN FOR RABIES 07/12/2012 Ot V06.1 [id number], COMBINED [ 10/13/2012 VINH MCDOWELL, BEST Phillip Ot V01.5 RABIES CONTACT 01/02/2015 Ot V01.5 01/06/2015 Ot 786.50 01/06/2015 Ot 807.01 01/06/2015 Ot E000.8 01/06/2015 Ot E928.9 01/06/2015 Ot 780.60 01/06/2015 Ot 787.01 01/06/2015 Ot 789.00 01/06/2015 Ot V72.84 01/27/2015 SAJAN MCDOWELL, ARUNA Hope Ot R10.12 01/27/2015 SAJAN MCDOWELL, ARNUA Hope Ot R10.32 02/21/2015 Ot V01.5 02/21/2015 SAJAN MCDOWELL, ARUNA Hoep Ot R10.12 02/21/2015 SAJAN MCDOWELL, ARUNA Hope Ot R10.32 03/09/2015 SAJAN MCDOWELL, ARUNA L Ot R10.12 03/09/2015 SAJAN MCDOWELL, ARUNA L Ot R10.32 03/09/2015 Ot V01.5 03/09/2015 SAJAN MCDOWELL, ARUNA L Ot R10.12 03/09/2015 SAJAN MCDOWELL, ARUNA L Ot R10.32 04/05/2015 SAJAN MCDOWELL, ARUNA L Ot R10.12 04/05/2015 SAJAN MCDOWELL, ARUNA L Ot R10.32 04/11/2015 SAJAN MCDOWELL, ARUNA L Ot R10.12 04/11/2015 SAJAN MCDOWELL, ARUNA L Ot R10.32 04/11/2015 SAJAN MCDOWELL, ARUNA L Ot R10.12 04/11/2015 SAJAN MCDOWELL, ARUNA L Ot R10.32 06/28/2015 SAJAN MCDOWELL, ARUNA L Ot R10.12 06/28/2015 SAJAN MCDOWELL, ARUNA L Ot R10.32 07/05/2015 SAJAN MCDOWELL, ARUNA L Ot R10.12 07/05/2015 SAJAN MCDOWELL, ARUNA L Ot R10.32 09/26/2015 Ot 786.50 CHEST PAIN NOS 09/26/2015 Ot 807.01 FRACTURE ONE RIB-CLOSED 09/26/2015 Ot E000.8 OTHER EXTERNAL CAUSE STATUS 09/26/2015 Ot E928.9 ACCIDENT NOS 09/26/2015 Ot 780.60 FEVER, UNSPECIFIED 09/26/2015 Ot 787.01 NAUSEA WITH VOMITING 09/26/2015 Ot 789.00 ABDOMINAL PAIN, UNSPECIFIED SITE 09/26/2015 Ot V72.84 EXAM PRE-OPERATIVE NOS 09/26/2015 SAJAN MCDOWELL, ARUNA L Ot R10.12 LEFT UPPER QUADRANT PAIN 09/26/2015 SAJAN MCDOWELL, ARUNA L Ot R10.32 LEFT LOWER QUADRANT PAIN 09/27/2015 ANISHA DEY COOK VEGETABLE Ot R07.89 OTHER CHEST PAIN 09/28/2015 SAJAN MCDOWELL, ARUNA L Ot R10.12 LEFT UPPER QUADRANT PAIN 09/28/2015 SAJAN MCDOWELL, ARUNA L Ot R10.32 LEFT LOWER QUADRANT PAIN 10/11/2015 ANISHA DEY COOK VEGETABLE Ot R07.89 OTHER CHEST PAIN 10/12/2015 ANISHA DEY COOK VEGETABLE Ot R07.89 OTHER CHEST PAIN 11/01/2015 Ot V01.5 RABIES CONTACT 11/01/2015 ANISHA DEY [facility] Ot R07.89 OTHER CHEST PAIN 04/02/2016 Ot 786.50 CHEST PAIN NOS 04/02/2016 Ot 807.01 FRACTURE ONE RIB-CLOSED 04/02/2016 Ot E000.8 OTHER EXTERNAL CAUSE STATUS 04/02/2016 Ot E928.9 ACCIDENT NOS 04/02/2016 Ot 780.60 FEVER, UNSPECIFIED 04/02/2016 Ot 787.01 NAUSEA WITH VOMITING 04/02/2016 Ot 789.00 ABDOMINAL PAIN, UNSPECIFIED SITE 04/02/2016 Ot V72.84 EXAM PRE-OPERATIVE NOS 04/02/2016 SAJAN MCDOWELL, ARUNA Hope Ot R10.12 LEFT UPPER QUADRANT PAIN 04/02/2016 ARUNA MOELLER MD Ot R10.32 LEFT LOWER QUADRANT PAIN 04/02/2016 ANISHA DEY [facility] Ot R07.89 OTHER CHEST PAIN 04/03/2016 ARUNA MOELLER MD Ot I10 ESSENTIAL (PRIMARY) HYPERTENSION 04/03/2016 ARUNA MOELLER MD Ot I65.23 OCCLUSION AND STENOSIS OF BILATERAL BASS 04/03/2016 ARUNA MOELLER MD Ot I10 ESSENTIAL (PRIMARY) HYPERTENSION 04/03/2016 ARUNA MOELLER MD Ot I65.23 OCCLUSION AND STENOSIS OF BILATERAL BASS 04/04/2016 ARUNA MOELLER MD Ot I10 ESSENTIAL (PRIMARY) HYPERTENSION 04/04/2016 ARUNA MOELLER MD Ot I65.23 OCCLUSION AND STENOSIS OF BILATERAL BASS 04/04/2016 ARUNA MOELLER MD Ot I10 ESSENTIAL (PRIMARY) HYPERTENSION 04/04/2016 ARUNA MOELLER MD Ot I65.23 OCCLUSION AND STENOSIS OF BILATERAL BASS 04/23/2016 Ot V01.5 RABIES CONTACT 04/23/2016 ANISHA DEY [facility] Ot R07.89 OTHER CHEST PAIN 04/23/2016 ARUNA MOELLER MD Ot I10 ESSENTIAL (PRIMARY) HYPERTENSION 04/23/2016 ARUNA MOELLER MD Ot I65.23 OCCLUSION AND STENOSIS OF BILATERAL BASS 04/24/2016 JOSE DE JESUS SPEAR MD Ot I10 ESSENTIAL (PRIMARY) HYPERTENSION 04/24/2016 JOSE DE JESUS SPEAR MD Ot K21.9 GASTRO-ESOPHAGEAL REFLUX DISEASE WITHOUT 04/24/2016 JOSE DE JESUS SPEAR MD Ot R00.1 BRADYCARDIA, UNSPECIFIED 04/24/2016 JOSE DE JESUS SPEAR MD Ot R06.83 SNORING 04/24/2016 JOSE DE JESUS SPEAR MD Ot R07.89 OTHER CHEST PAIN 04/24/2016 JOSE DE JESUS SPEAR MD Ot R42 DIZZINESS AND GIDDINESS 04/24/2016 JOSE DE JESUS SPEAR MD Ot Z82.49 FAMILY HX OF ISCHEM HEART DIS AND OTH DI 04/24/2016 JOSE DE JESUS SPEAR MD Ot I10 ESSENTIAL (PRIMARY) HYPERTENSION 04/24/2016 JOSE DE JESUS SPEAR MD Ot K21.9 GASTRO-ESOPHAGEAL REFLUX DISEASE WITHOUT 04/24/2016 JOSE DE JESUS SPEAR MD Ot R00.1 BRADYCARDIA, UNSPECIFIED 04/24/2016 JOSE DE JESUS SPEAR MD Ot R06.83 SNORING 04/24/2016 JOSE DE JESUS SPEAR MD Ot R07.89 OTHER CHEST PAIN 04/24/2016 JOSE DE JESUS SPEAR MD Ot R42 DIZZINESS AND GIDDINESS 04/24/2016 JOSE DE JESUS SPEAR MD Ot Z82.49 FAMILY HX OF ISCHEM HEART DIS AND OTH DI 04/25/2016 ARUNA MOELLER MD Ot I10 ESSENTIAL (PRIMARY) HYPERTENSION 04/25/2016 ARUNA MOELLER MD Ot I65.23 OCCLUSION AND STENOSIS OF BILATERAL BASS 07/19/2016 JOSE DE JESUS SPEAR MD Ot E66.9 OBESITY, UNSPECIFIED 07/19/2016 JOSE DE JESUS SPEAR MD Ot E78.1 PURE HYPERGLYCERIDEMIA 07/19/2016 JOSE DE JESUS SPEAR MD Ot I10 ESSENTIAL (PRIMARY) HYPERTENSION 07/19/2016 JOSE DE JESUS SPEAR MD Ot I34.0 NONRHEUMATIC MITRAL (VALVE) INSUFFICIENC 07/19/2016 JOSE DE JESUS SPEAR MD Ot I51.9 HEART DISEASE, UNSPECIFIED 07/19/2016 JOSE DE JESUS SPEAR MD Ot R07.89 OTHER CHEST PAIN 07/22/2016 JOSE DE JESUS SPEAR MD Ot E66.9 OBESITY, UNSPECIFIED 07/22/2016 JOSE DE JESUS SPEAR MD Ot E78.1 PURE HYPERGLYCERIDEMIA 07/22/2016 JOSE DE JESUS SPEAR MD Ot I11.9 HYPERTENSIVE HEART DISEASE WITHOUT HEART 07/22/2016 JOSE DE JESUS SPEAR MD Ot I25.10 ATHSCL HEART DISEASE OF [place] CORONARY 07/22/2016 JOSE DE JESUS SPEAR MD Ot I34.0 NONRHEUMATIC MITRAL (VALVE) INSUFFICIENC 07/22/2016 JOSE DE JESUS SPEAR MD Ot R06.02 SHORTNESS OF BREATH 07/22/2016 JOSE DE JESUS SPEAR MD Ot R07.89 OTHER CHEST PAIN 07/22/2016 JOSE DE JESUS SPEAR MD Ot R53.83 OTHER FATIGUE 07/22/2016 JOSE DE JESUS SPEAR MD Ot Z68.32 BODY MASS INDEX (BMI) 32.0-32.9, ADULT 07/22/2016 JOSE DE JESUS SPEAR MD Ot Z79.899 OTHER SUBEDITOR (CURRENT) DRUG THERAPY 07/22/2016 JOSE DE JESUS SPEAR MD Ot Z87.891 PERSONAL HISTORY OF NICOTINE DEPENDENCE 07/24/2016 JOSE DE JESUS SPEAR MD Ot E66.9 OBESITY, UNSPECIFIED 07/24/2016 JOSE DE JESUS SPEAR MD Ot E78.1 PURE HYPERGLYCERIDEMIA 07/24/2016 JOSE DE JESUS SPEAR MD Ot I11.9 HYPERTENSIVE HEART DISEASE WITHOUT HEART 07/24/2016 JOSE DE JESUS SPEAR MD Ot I25.10 ATHSCL HEART DISEASE OF [place] CORONARY 07/24/2016 JOSE DE JESUS SPEAR MD Ot I34.0 NONRHEUMATIC MITRAL (VALVE) INSUFFICIENC 07/24/2016 JOSE DE JESUS SPEAR MD Ot R06.02 SHORTNESS OF BREATH 07/24/2016 JOSE DE JESUS SPEAR MD Ot R07.89 OTHER CHEST PAIN 07/24/2016 JOSE DE JESUS SPEAR MD Ot R53.83 OTHER FATIGUE 07/24/2016 JOSE DE JESUS SPEAR MD Ot Z68.32 BODY MASS INDEX (BMI) 32.0-32.9, ADULT 07/24/2016 JOSE DE JESUS SPEAR MD Ot Z79.899 OTHER MCC (CURRENT) DRUG THERAPY 07/24/2016 JOSE DE JESUS SPEAR MD Ot Z87.891 PERSONAL HISTORY OF NICOTINE DEPENDENCE 07/25/2016 JOSE DE JESUS SPEAR MD Ot G47.10 HYPERSOMNIA, UNSPECIFIED 07/25/2016 JOSE DE JESUS SPEAR MD Ot I10 ESSENTIAL (PRIMARY) HYPERTENSION 07/25/2016 JOSE DE JESUS SPEAR MD Ot R06.83 SNORING Procedures Results Test Result Range Complete blood count (CBC) with automated white blood cell (WBC) differential - 04/23/16 19:56 Blood leukocytes automated count (number/volume) 8.3 10*3/ uL 4.3-11.0 Blood erythrocytes automated count (number/volume) 4.67 10*6 /uL 4.35-5.85 Venous blood hemoglobin measurement (mass/volume) 15.2 g/dL 13.3-17.7 Blood hematocrit (volume fraction) 42 % 40-54 Automated erythrocyte mean corpuscular volume 91 [foz_us] 80-99 Automated erythrocyte mean corpuscular hemoglobin (mass per erythrocyte) 33 pg 25-34 Automated erythrocyte mean corpuscular hemoglobin concentration measurement ( mass/volume) 36 g/dL 32-36 Automated erythrocyte distribution width ratio 12.3 % 10.0-14.5 Automated blood platelet count (count/volume) 172 10*3/uL 130-400 Automated blood platelet mean volume measurement 12.1 [foz_ us] 7.4-10.4 Automated blood neutrophils/100 leukocytes 62 % 42-75 Automated blood lymphocytes/100 leukocytes 25 % 12-44 Blood monocytes/100 leukocytes 7 % 0-12 Automated blood eosinophils/100 leukocytes 6 % 0-10 Automated blood basophils/100 leukocytes 0 % 0-10 Blood neutrophils automated count (number/volume) 5.1 10*3 1.8-7.8 Blood lymphocytes automated count (number/volume) 2.1 10*3 1.0-4.0 Blood monocytes automated count (number/volume) 0.6 10*3 0.0-1.0 Automated eosinophil count 0.5 10*3/uL 0.0-0.3 Automated blood basophil count (count/volume) 0.0 10*3/uL 0.0-0.1 PT panel in platelet poor plasma by coagulation assay - 04/23/16 19:56 Prothrombin time (PT) in platelet poor plasma by coagulation assay 12.6 s 12.2-14.7 INR in platelet poor plasma or blood by coagulation assay 1.0 0.8-1.4 Activated partial thromboplastin time (aPTT) in platelet poor plasma bycoagulation assay - 04/23/16 19:56 Activated partial thromboplastin time (aPTT) in platelet poor plasma bycoagulation assay 26 s 24-35 Fibrin D-dimer FEU measurement in platelet poor plasma (mass/volume) - 19:56 Fibrin D-dimer FEU measurement in platelet poor plasma (mass/volume) < ug/mL 0.00-0.49 Comprehensive metabolic panel - 04/23/16 19:56 Serum or plasma sodium measurement (moles/volume) 138 mmol/ L 135-145 Serum or plasma potassium measurement (moles/volume) 5.0 mmol/L 3.6-5.0 Serum or plasma chloride measurement (moles/volume) 106 mmol /L 98-107 Carbon dioxide 21 mmol/L 21-32 Serum or plasma anion gap determination (moles/volume) 11 mmol/L 5-14 Serum or plasma urea nitrogen measurement (mass/volume) 10 mg/dL 7-18 Serum or plasma creatinine measurement (mass/volume) 1.02 mg /dL 0.60-1.30 Serum or plasma urea nitrogen/creatinine mass ratio 10 NRG Serum or plasma creatinine measurement with calculation of estimated glomerular filtration rate > NRG Serum or plasma glucose measurement (mass/volume) 99 mg/dL 70-105 Serum or plasma calcium measurement (mass/volume) 9.4 mg/dL 8.5-10.1 Serum or plasma total bilirubin measurement (mass/volume) 1.0 mg/dL 0.1-1.0 Serum or plasma alkaline phosphatase measurement (enzymatic activity/volume) 57 U/L 40-136 Serum or plasma aspartate aminotransferase measurement (enzymatic activity/ volume) 38 U/L 5-34 Serum or plasma alanine aminotransferase measurement (enzymatic activity/volume ) 48 U/L 0-55 Serum or plasma protein measurement (mass/volume) 7.7 g/dL 6.4-8.2 Serum or plasma albumin measurement (mass/volume) 4.8 g/dL 3.2-4.5 Magnesium - 04/23/16 19:56 Magnesium 2.8 mg/dL 1.8-2.4 Serum or plasma troponin i.cardiac measurement (mass/volume) - 04/23/16 19:56 Serum or plasma troponin i.cardiac measurement (mass/volume) < ng/mL <0.30 Myoglobin, serum - 04/23/16 19:56 Myoglobin, serum 98.7 ng/mL 10.0-92.0 Erythrocyte sedimentation rate by westergren method - 04/23/16 19:56 Erythrocyte sedimentation rate by westergren method 3 mm 0-30 Serum or plasma troponin i.cardiac measurement (mass/volume) - 04/23/16 20:56 Serum or plasma troponin i.cardiac measurement (mass/volume) < ng/mL <0.30 Lipase - 04/23/16 20:56 Lipase 17 U/L 8-78 Serum or plasma C reactive protein measurement (mass/volume) - 04/23/16 20:56 Serum or plasma C reactive protein measurement (mass/volume) 0.11 mg/dL 0.00-0.50 Lipid 1996 panel - 04/24/16 04:13 Serum or plasma triglyceride measurement (mass/volume) 419 mg/dL <150 Serum or plasma cholesterol measurement (mass/volume) 141 mg /dL < 200 Serum or plasma cholesterol in HDL measurement (mass/volume) 27 mg/dL 40-60 Cholesterol in LDL [mass/volume] in serum or plasma by direct assay 71 mg/dL 1-129 Serum or plasma cholesterol in VLDL measurement (mass/volume) 84 mg/dL 5-40 Methicillin resistant Staphylococcus aureus (MRSA) screening culture - 08:23 Methicillin resistant Staphylococcus aureus (MRSA) screening culture NEG [facility] Automated blood complete blood count (hemogram) panel - 07/03/16 08:29 Blood leukocytes automated count (number/volume) 6.6 10*3/ uL 4.3-11.0 Blood erythrocytes automated count (number/volume) 4.53 10*6 /uL 4.35-5.85 Venous blood hemoglobin measurement (mass/volume) 14.6 g/dL 13.3-17.7 Blood hematocrit (volume fraction) 42 % 40-54 Automated erythrocyte mean corpuscular volume 93 [foz_us] 80-99 Automated erythrocyte mean corpuscular hemoglobin (mass per erythrocyte) 32 pg 25-34 Automated erythrocyte mean corpuscular hemoglobin concentration measurement ( mass/volume) 35 g/dL 32-36 Automated erythrocyte distribution width ratio 12.7 % 10.0-14.5 Automated blood platelet count (count/volume) 153 10*3/uL 130-400 Automated blood platelet mean volume measurement 11.8 [foz_ us] 7.4-10.4 PT panel in platelet poor plasma by coagulation assay - 07/03/16 08:29 Prothrombin time (PT) in platelet poor plasma by coagulation assay 13.5 s 12.2-14.7 INR in platelet poor plasma or blood by coagulation assay 1.1 0.8-1.4 Activated partial thromboplastin time (aPTT) in platelet poor plasma bycoagulation assay - 07/03/16 08:29 Activated partial thromboplastin time (aPTT) in platelet poor plasma bycoagulation assay 26 s 24-35 Comprehensive metabolic panel - 07/03/16 08:29 Serum or plasma sodium measurement (moles/volume) 141 mmol/ L 135-145 Serum or plasma potassium measurement (moles/volume) 3.9 mmol/L 3.6-5.0 Serum or plasma chloride measurement (moles/volume) 106 mmol /L 98-107 Carbon dioxide 25 mmol/L 21-32 Serum or plasma anion gap determination (moles/volume) 10 mmol/L 5-14 Serum or plasma urea nitrogen measurement (mass/volume) 13 mg/dL 7-18 Serum or plasma creatinine measurement (mass/volume) 1.00 mg /dL 0.60-1.30 Serum or plasma urea nitrogen/creatinine mass ratio 13 NRG Serum or plasma creatinine measurement with calculation of estimated glomerular filtration rate > NRG Serum or plasma glucose measurement (mass/volume) 100 mg/dL 70-105 Serum or plasma calcium measurement (mass/volume) 9.0 mg/dL 8.5-10.1 Serum or plasma total bilirubin measurement (mass/volume) 1.1 mg/dL 0.1-1.0 Serum or plasma alkaline phosphatase measurement (enzymatic activity/volume) 53 U/L 40-136 Serum or plasma aspartate aminotransferase measurement (enzymatic activity/ volume) 25 U/L 5-34 Serum or plasma alanine aminotransferase measurement (enzymatic activity/volume ) 40 U/L 0-55 Serum or plasma protein measurement (mass/volume) 7.0 g/dL 6.4-8.2 Serum or plasma albumin measurement (mass/volume) 4.5 g/dL 3.2-4.5 Lipid 1996 panel - 07/03/16 08:29 Serum or plasma triglyceride measurement (mass/volume) 123 mg/dL <150 Serum or plasma cholesterol measurement (mass/volume) 161 mg /dL < 200 Serum or plasma cholesterol in HDL measurement (mass/volume) 36 mg/dL 40-60 Cholesterol in LDL [mass/volume] in serum or plasma by direct assay 109 mg/dL 1-129 Serum or plasma cholesterol in VLDL measurement (mass/volume) 25 mg/dL 5-40 Encounters ACCT No. Visit Date/Time Discharge Status Pt. Type Provider Facility Loc./Unit Complaint [id number] 07/24/2016 21:02:00 2016 07:00:00 DIS Outpatient JOSE DE JESUS SPEAR MD [facility] SLEEP LEO,HTN,MORNING HEADACHE [id number] 07/03/2016 07:52:00 2016 15:55:00 DIS Outpatient JOSE DE JESUS SPEAR MD [facility] CATH CP,HTN,CAD [id number] 04/23/2016 22:37:00 2016 14:05:00 DIS Inpatient JOSE DE JESUS SPEAR MD [facility] ICU CHEST PAIN,HYPERTENSION [id number] 01/06/2015 10:02:00 2014 23:59:59 CLS Outpatient ARUNA MOELLER MD [facility] RAD LUQ, LLUQ PAIN [id number] 07/26/2012 08:55:00 2012 00:01:00 DIS Outpatient VINH MCDOWELL, BEST Phillip [facility] SDC DOG BITE ON 07/11 [id number] 07/18/2016 08:12:00 ACT Outpatient JOSE DE JESUS SPEAR MD [facility] CARD CHEST PAIN SYNDROME,HTN,MR [id number] 04/02/2016 10:45:00 ACT Outpatient ARUNA MOELLER MD [facility] RAD AMS, HTN [id number] 09/26/2015 10:24:00 ACT Outpatient ANISHA DEY [facility] RAD CHEST PAIN [id number] 01/06/2015 10:00:00 Document Registration [id number] 10/14/2012 00:00:00 Document Registration [id number] 07/11/2012 20:08:00 Document Registration [id number] 03/11/2012 07:18:00 Document Registration [id number] 02/05/2012 15:51:00 Document Registration [id number] 11/21/2011 15:51:00 Document Registration [id number] 01/23/2011 14:06:00 Document Registration [id number] 12/24/2010 11:34:00 Document Registration
== END 2016-07-03 15:55 | disposition home or self-care (01) ==
LOC: CATH 07:52
PROVIDERS: ATTEND Internal Medicine Cardiovascular Disease
DX: R07.89 Other chest pain (principal); I25.10 Atherosclerotic heart disease of native coronary artery without angina pectoris; R06.02 Shortness of breath; R53.83 Other fatigue; I11.9 Hypertensive heart disease without heart failure; E66.9 Obesity, unspecified; E78.1 Pure hyperglyceridemia; I34.0 Nonrheumatic mitral (valve) insufficiency; Z68.32 Body mass index [BMI] 32.0-32.9, adult; Z79.899 Other long term (current) drug therapy; Z87.891 Personal history of nicotine dependence
CPT/HCPCS: 36415; 71010; 75625; 80053; 80061; 85027; 85610; 85730; 87081; 93005; 93458

== ENCOUNTER → 2016-07-18 | Outpatient (CLI) | payer OTHER ==
[~2016-07-18] MED LIST changes: +CHOL100048 PO; +CYAN500T2 PO; +HYDR25TA4 PO; +NEBI1TAB PO; +OMEG-109 PO; +PEDI300T11 PO; +VALS1TAB PO
== END ==
LOC: CARD 08:12
PROVIDERS: ATTEND Internal Medicine Cardiovascular Disease
DX: I10 Essential (primary) hypertension (principal); R07.89 Other chest pain; E78.1 Pure hyperglyceridemia; I34.0 Nonrheumatic mitral (valve) insufficiency; I51.9 Heart disease, unspecified; E66.9 Obesity, unspecified
CPT/HCPCS: 93225; 93226

== ENCOUNTER 2016-07-24 21:02 | Outpatient (CLI) | payer OTHER | END 2016-07-25 07:00 | disposition home or self-care (01) | LOC: SLEEP 21:02 | PROVIDERS: ATTEND Internal Medicine Cardiovascular Disease | DX: G47.10 Hypersomnia, unspecified (principal); R06.83 Snoring; I10 Essential (primary) hypertension | CPT/HCPCS: 95811 ==

== ENCOUNTER → 2016-09-06 | Outpatient (CLI) | payer OTHER | LOC: RAD 15:12 | PROVIDERS: ATTEND Internal Medicine Cardiovascular Disease | DX: R10.9 Unspecified abdominal pain (principal) ==

== ENCOUNTER 2016-09-27 13:36 | Outpatient (RCR) | payer OTHER ==
[2016-10-16] MEDS ORDERED: MULT-974 PO (17:37)
[2016-10-16] MEDS ORDERED: PRD20T PO (20:25)
== END 2016-12-26 | disposition home or self-care (01) ==
LOC: CARD 13:36
PROVIDERS: ATTEND Internal Medicine Cardiovascular Disease
DX: I51.9 Heart disease, unspecified (principal); E78.1 Pure hyperglyceridemia; E83.42 Hypomagnesemia; E66.09 Other obesity due to excess calories; R07.89 Other chest pain
CPT/HCPCS: 93225; 93226

== ENCOUNTER → 2016-10-09 | Outpatient (CLI) | payer OTHER | LOC: RT 06:57 | PROVIDERS: ATTEND Family Medicine | DX: R06.09 Other forms of dyspnea (principal); R06.02 Shortness of breath | CPT/HCPCS: 94060; 94621; 94726; 94729 ==

== ENCOUNTER 2016-10-16 17:08 | Emergency (ER) | payer OTHER ==
[~2016-10-16] VITALS: Ht 172.7 cm; Wt 97.5 kg
[2016-10-16] MEDS ORDERED: MULT-974 PO (17:37)
[2016-10-16] MEDS ORDERED: ASPIRIN 81 MG CHEW (CHILDREN'S ASA) PO ONE (17:45)
[2016-10-16] MEDS ORDERED: RX-NITROGLYCERIN 0.4 MG TAB BTL 25'S SL PRN (17:45)
[2016-10-16 17:46] LABS: BASOPHILS % (AUTO) 0 % (0-10); EOSINOPHILS # (AUTO) 0.3 10^3/uL (0.0-0.3); EOSINOPHILS % (AUTO) 4 % (0-10); LYMPHOCYTES # (AUTO) 2.1 X 10^3 (1.0-4.0); LYMPHOCYTES % (AUTO) 29 % (12-44); MEAN CORPUSCULAR HEMOGLOBIN 32 PG (25-34); MEAN CORPUSCULAR HGB CONC 34 G/DL (32-36); MEAN CORPUSCULAR VOLUME 92 FL (80-99); MEAN PLATELET VOLUME 12.1 FL (7.4-10.4); MONOCYTES # (AUTO) 0.7 X 10^3 (0.0-1.0); MONOCYTES % (AUTO) 10 % (0-12); NEUTROPHILS # (AUTO) 4.2 X 10^3 (1.8-7.8); NEUTROPHILS % (AUTO) 57 % (42-75); PLATELET COUNT 157 10^3/uL (130-400); RED CELL DISTRIBUTION WIDTH 12.6 % (10.0-14.5); WHITE BLOOD COUNT 7.4 10^3/uL (4.3-11.0)
[2016-10-16 17:54] LABS: PROTHROMBIN TIME PATIENT 12.9 SEC (12.2-14.7)
[2016-10-16 17:58] LABS: ALANINE AMINOTRANSFERASE 46 U/L (0-55); ALBUMIN 4.5 GM/DL (3.2-4.5); AMYLASE 48 U/L (25-125); ANION GAP 12 MMOL/L (5-14); ASPARTATE AMINO TRANSFERASE 27 U/L (5-34); BILIRUBIN,TOTAL 1.2 MG/DL (0.1-1.0); BLOOD UREA NITROGEN 12 MG/DL (7-18); BUN/CREATININE RATIO 12; CALCIUM 9.2 MG/DL (8.5-10.1); CARBON DIOXIDE 23 MMOL/L (21-32); CHLORIDE 104 MMOL/L (98-107); CREATINE KINASE 229 U/L (30-200); CREATININE SERUM 0.97 MG/DL (0.60-1.30); GFR ESTIMATED > 60; GLUCOSE 88 MG/DL (70-105); LIPASE 12 U/L (8-78); MAGNESIUM 2.2 MG/DL (1.8-2.4); POTASSIUM 4.1 MMOL/L (3.6-5.0); SODIUM 139 MMOL/L (135-145); TOTAL PROTEIN 7.3 GM/DL (6.4-8.2)
[2016-10-16 18:17] LABS: TROPONIN I < 0.30 NG/ML (<0.30)
[2016-10-16] MEDS ORDERED: NS IV 1000 ML 1,000 ML IV ONE (18:31)
--- NOTE | 2016-10-16 18:41 | ED General ---
General Chief Complaint: Respiratory Problems Stated Complaint: SOB Nursing Triage Note: PT CO OF SOA, PT STATES FELT LIKE HE WAS GONNA PASS OUT, STATES HAS HAD SEVERAL EPISODES OF THIS RECENTLY, STATES GOING TO [facility] ON FRIDAY TO SEE IF CAN FIND ANSWERS. DENIES C/P. Nursing Sepsis Screen: No Definite Risk Source of Information: Patient Exam Limitations: No Limitations History of Present Illness Time Seen by Provider: 18:10 Initial Comments Here with report of a variety of complaints that centers around this intermittent feeling of difficulty breathing. Today had an episode that he felt like he was given a pass out and had to fight that back. He noted that his blood pressure was elevated in the 160s systolic at that time and his heart rate was in the 70s/80s. We will rate is 50s for him. States that he is eating and drinking okay and denies difficulty with bowel or bladder function. Denies chest pain but feels short of breath. States occasionally feels there is something centrally in his chest that is causing him difficulty breathing. He did have pulmonary function test done last week and noted to have obstructive disease. He has been started on albuterol inhaler but did not have any of that today. He is due to start Symbicort apparently as well but has not received that prescription. He has appointment at [facility] next week with pulmonology due to concerns related to this. He has had fairly extensive workup including heart catheter and carotid artery ultrasound with out significant abnormalities. Timing/Duration: 4-6 Hours, Intermittent Severity: Moderate Modifying Factors: improves with Rest Associated Systoms: No Chest Pain, No Cough, No Diaphoresis, No Fever/Chills, No Headaches, No Nausea/Vomiting, Shortness of Air, Weakness Allergies and Home Medications Allergies Coded Allergies: No Known Drug Allergies (Unverified , 12/24/10) Home Medications Cholecalciferol (Vitamin D3) 1,000 Unit Capsule, 1,000 UNIT PO DAILY, (Reported) Esomeprazole Magnesium 20 Mg Tablet.dr, 20 MG PO DAILY, (Reported) Multivitamin 1 Each Tablet, 1 EACH PO DAILY, (Reported) Valsartan/Hydrochlorothiazide 1 Each Tablet, 1 EACH PO DAILY, #30 Prescribed by: MALLORY GARZA on 07/03/16 3141 Constitutional: see HPI, No chills, No fever EENTM: no symptoms reported Respiratory: see HPI, No cough, short of breath, No wheezing Cardiovascular: No chest pain, No edema, syncope (sensation of but not complete ) Gastrointestinal: No abdominal pain, No nausea, No vomiting Genitourinary: no symptoms reported Musculoskeletal: no symptoms reported Skin: no symptoms reported Psychiatric/Neurological: See HPI, Anxiety, Denies Headache, Tingling (fingers and toes in the morning times) Hematologic/Lymphatic: No Symptoms Reported All Other Systems Reviewed Negative Unless Noted: Yes Past Adsvvby-Cufqjn-Rwvzcq Hx Patient Social History Alcohol Use: Denies Use Recreational Drug Use: No Smoking Status: Never a Smoker Recent Foreign Travel: No Contact w/Someone Who Travel: No Recent Infectious Disease Expo: No Recent Hopitalizations: No Immunizations Up To Date Tetanus Booster (TDap): Unknown Seasonal Allergies Seasonal Allergies: Yes Surgeries HX Surgeries: Yes (ACL bilat knees) Surgeries: Abdominal, Orthopedic Respiratory Hx Respiratory Disorders: Yes (obstructive lung disease) Cardiovascular Hx Cardiac Disorders: Yes (near syncopal episodes) Cardiac Disorders: Hypertension Neurological Hx Neurological Disorders: No Reproductive System Hx Reproductive Disorders: No Sexually Transmitted Disease: No HIV/AIDS: No Genitourinary Hx Genitourinary Disorders: No Gastrointestinal Hx Gastrointestinal Disorders: Yes Gastrointestinal Disorders: Gastroesophageal Reflux Musculoskeletal Hx Musculoskeletal Disorders: No Endocrine Hx Endocrine Disorders: No HEENT HX ENT Disorders: No Cancer Hx Cancer: No Psychosocial Hx Psychiatric Problems: No Integumentary HX Skin/Integumentary Disorder: No Blood Transfusions Hx Blood Disorders: No Family Medical History Significant Family History: CAD Over 55 Years Old Family Medial History: Abdominal aortic aneurysm 19 MOTHER, , Age:62, Onset:60 years & older Myocardial infarction 19 FATHER, , Age:61, Onset:60 years & older Physical Exam Vital Signs Vital Sign - Last 12Hours 10/16/16 10/16/16 17:10 19:47 Temp 97.1 Pulse 56 Resp 12 B/P (MAP) 158/95 Pulse Ox 98 O2 Delivery Room Air Capillary Refill : Less Than 3 Seconds General Appearance: No Apparent Distress, WD/WN HEENT: PERRL/EOMI, Pharynx Normal Neck: Non Tender, Supple Respiratory: Lungs Clear, Normal Breath Sounds Cardiovascular: Regular Rate, Rhythm, No Murmur Gastrointestinal: Non Tender, Soft Back: Normal Inspection, No CVA Tenderness, No Vertebral Tenderness Extremity: Non Tender, No Calf Tenderness Neurologic/Psychiatric: Alert, Oriented x3 Skin: Normal Color, Warm/Dry Progress/Results/Core Measures Results/Orders Lab Results Laboratory Tests Test 10/16/16 17:15 10/16/16 17:42 Range/Units White Blood Count 7.4 4.3-11.0 10^3/uL Red Blood Count 4.60 4.35-5.85 10^6/uL Hemoglobin 14.5 13.3-17.7 G/DL Hematocrit 43 40-54 % Mean Corpuscular Volume 92 80-99 FL Mean Corpuscular Hemoglobin 32 25-34 PG Mean Corpuscular Hemoglobin Concent 34 32-36 G/DL Red Cell Distribution Width 12.6 10.0-14.5 % Platelet Count 157 130-400 10^3/uL Mean Platelet Volume 12.1 H 7.4-10.4 FL Neutrophils (%) (Auto) 57 42-75 % Lymphocytes (%) (Auto) 29 12-44 % Monocytes (%) (Auto) 10 0-12 % Eosinophils (%) (Auto) 4 0-10 % Basophils (%) (Auto) 0 0-10 % Neutrophils # (Auto) 4.2 1.8-7.8 X 10^3 Lymphocytes # (Auto) 2.1 1.0-4.0 X 10^3 Monocytes # (Auto) 0.7 0.0-1.0 X 10^3 Eosinophils # (Auto) 0.3 0.0-0.3 10^3/uL Basophils # (Auto) 0.0 0.0-0.1 10^3/uL Prothrombin Time 12.9 12.2-14.7 SEC INR Comment 1.0 0.8-1.4 Activated Partial Thromboplast Time 26 24-35 SEC D-Dimer < 0.27 0.00-0.49 UG/ML Sodium Level 139 135-145 MMOL/L Potassium Level 4.1 3.6-5.0 MMOL/L Chloride Level 104 98-107 MMOL/L Carbon Dioxide Level 23 21-32 MMOL/L Anion Gap 12 5-14 MMOL/L Blood Urea Nitrogen 12 7-18 MG/DL Creatinine 0.97 0.60-1.30 MG/DL Estimat Glomerular Filtration Rate > 60 BUN/Creatinine Ratio 12 Glucose Level 88 70-105 MG/DL Calcium Level 9.2 8.5-10.1 MG/DL Magnesium Level 2.2 1.8-2.4 MG/DL Total Bilirubin 1.2 H 0.1-1.0 MG/DL Aspartate Amino Transf (AST/SGOT) 27 5-34 U/L Alanine Aminotransferase (ALT/SGPT) 46 0-55 U/L Alkaline Phosphatase 50 40-136 U/L Total Creatine Kinase 229 H 30-200 U/L Creatine Kinase MB 4.1 <6.6 NG/ML Troponin I < 0.30 <0.30 NG/ML B-Type Natriuretic Peptide < 10.0 <100.0 PG/ML Total Protein 7.3 6.4-8.2 GM/DL Albumin 4.5 3.2-4.5 GM/DL Amylase Level 48 25-125 U/L Lipase 12 8-78 U/L TSH [place] Testing 1.14 0.35-4.94 UIU/ML Urine Opiates Screen NEGATIVE NEGATIVE Urine Oxycodone Screen NEGATIVE NEGATIVE Urine Methadone Screen NEGATIVE NEGATIVE Urine Propoxyphene Screen NEGATIVE NEGATIVE Urine Barbiturates Screen NEGATIVE NEGATIVE Ur Tricyclic Antidepressants Screen NEGATIVE NEGATIVE Urine Phencyclidine Screen NEGATIVE NEGATIVE Urine Amphetamines Screen NEGATIVE NEGATIVE Urine Methamphetamines Screen NEGATIVE NEGATIVE Urine Benzodiazepines Screen NEGATIVE NEGATIVE Urine Cocaine Screen NEGATIVE NEGATIVE Urine Cannabinoids Screen NEGATIVE NEGATIVE My Orders Orders - TRISH WINSTON MD Ns Iv 1000 Ml (Sodium Chloride 0.9%) (10/16/16 18:31) Ct Angio Chest W (10/16/16 18:31) Albuterol/Ipra Inhalation Soln (Duoneb I (10/16/16 18:45) Svn Sm Volume Nebulizer Rt-Rfs (10/16/16 18:32) Iohexol Injection (Omnipaque 350 Mg/Ml 1 (10/16/16 19:00) Ns (Ivpb) (Sodium Chloride 0.9% Ivpb Bag (10/16/16 19:00) Fibrin Degradation Products (10/16/16 19:27) Prednisone Tablet (Deltasone Tablet) (10/16/16 20:15) Medications Given in ED Current Medications Medications Dose Ordered Sig/Kelly Route Start Time Stop Time Status Last Admin Dose Admin Albuterol/ Ipratropium 3 ml ONCE ONCE INH 10/16/16 18:45 10/16/16 18:46 DC 10/16/16 19:46 3 ML Aspirin 324 mg ONCE ONCE PO 7/19/17 17:45 10/16/16 17:46 DC 10/16/16 18:25 324 MG Iohexol 150 ml ONCE ONCE IV 10/16/16 19:00 10/16/16 19:01 DC 10/16/16 18:49 125 ML Prednisone 40 mg ONCE ONCE PO 10/16/16 20:15 10/16/16 20:16 DC 10/16/16 20:15 40 MG Sodium Chloride 100 ml ONCE ONCE IV 10/16/16 19:00 10/16/16 19:01 DC 10/16/16 18:49 80 ML Sodium Chloride 1,000 ml @ 0 mls/hr Q0M ONCE IV 10/16/16 18:31 10/16/16 18:32 DC 10/16/16 19:33 999 MLS/HR Vital Signs/I&O Vital Sign - Last 12Hours 10/16/16 10/16/16 17:10 19:47 Temp 97.1 Pulse 56 Resp 12 B/P (MAP) 158/95 Pulse Ox 98 98 O2 Delivery Room Air Blood Pressure Mean: 116 Progress Note : Progress Note Seen and evaluated. IV, labs, EKG ordered. Initially orders for x-ray but that was canceled and we will get CT angiogram chest due to near syncopal episode and vague symptoms of something within the chest. I did discuss this at length with the patient and family who agreed. Normal saline 1 L bolus. Duo neb ordered. Monitor patient. Improved after breathing treatment. CT angiogram of this not specifically exclude pulmonary embolism although not high on the list. D-dimer was added. No other mass effect or other abnormalities within the chest noted. 2000: Prednisone 40 mg by mouth ordered. Normal saline 1 L bolus completing now. I did discuss with the patient about follow- up. 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 No other abnormalities noted. Discharged home with return precautions. Patient verbalize understanding instructions and agreement with plan. ECG Initial ECG Impression Date: Oct 16, 2016 Initial ECG Impression Time: 17:32 Initial ECG Rate: 52 Initial ECG Rhythm: Normal Sinus Comment Sinus rhythm with normal axis. No evidence of ST elevation PA. Similar to previous of 07/03/16. Interpreted by me. Diagnostic Imaging Diagonstic Imaging: CT Plain Films/CT/US/NM/MRI: chest Comments NAME: ELTON FOWLER [facility] REC#: [id number] PT STATUS: REG ER : 1960 PHYSICIAN: TRISH WINSTON MD ADMIT DATE: 10/16/16/ER Signed Date of Exam: 10/16/16 CT ANGIO CHEST W PROCEDURE: CT angiography of the chest with contrast. TECHNIQUE: Multiple contiguous axial images were obtained through the chest after uneventful bolus administration of intravenous contrast. Reconstructed CTA MIP acquisitions were also performed. INDICATION: Shortness of breath, chest pain. COMPARISON: None. FINDINGS: Examination is limited due to timing of the contrast bolus. There is mixing artifact in the left and right pulmonary arteries. The main pulmonary artery appears normal. Cannot exclude central or distal branch pulmonary emboli. The aorta is normal. The heart is not enlarged. The lungs are clear. No pleural or pericardial effusion is seen. Osseous structures are grossly unremarkable. Visualized upper abdominal solid organs are intact. IMPRESSION: 1. Significantly limited examination due to timing of the contrast bolus. Cannot exclude pulmonary embolus. Study may be repeated or a VQ scan obtained. 2. Remainder of the chest is within normal limits. Dictated by: Dictated on workstation # [id number] Dict: 10/16/161906 Trans: 10/16/161913 Interpreted by: KARLI MORRISON Electronically signed by: KARLI MORRISON 10/16/161913 Reviewed: Reviewed by Me Departure Impression Impression: Primary Impression: COPD with acute bronchitis Disposition: 01 HOME, SELF-CARE Condition: Improved Departure-Patient Inst. Decision time for Depature: 20:24 Referrals: JANNA HOLGUIN RACHEL L MD (PCP/Family) Primary Care Physician Patient Instructions: Chronic Bronchitis (DC) Add. Discharge Instructions: All discharge instructions reviewed with patient and/or family. Voiced understanding. Take medications as directed. Follow-up with your in a few days for recheck. You can consider following up with pulmonology here. You may call Dr. Holguin's office in the morning for appointment. Return for worse pain, fever, vomiting, weakness, breathing problems or other concerns as needed. Scripts Prednisone (Prednisone) 20 Mg Tab 40 MG PO DAILY, #6 TAB 0 Refills Prov: TRISH WINSTON MD 10/16/16 TRISH WINSTON MD Oct 16, 2016 18:41
[2016-10-16] MEDS ORDERED: RT-ALBUTEROL/IPRATROPIUM 3 ML (DUONEB) VIAL INH ONE (18:45)
[2016-10-16] MEDS ORDERED: NS 100 ML (IVPB) BAG IV ONE (19:00)
[2016-10-16] MEDS ORDERED: IOHEXOL 350 MG/ML 150 ML (OMNIPAQUE 350) VIAL IV ONE (19:00)
--- NOTE | 2016-10-16 19:12 | Diagnostic Imaging Report ---
PROCEDURE: CT angiography of the chest with contrast. TECHNIQUE: Multiple contiguous axial images were obtained through the chest after uneventful bolus administration of intravenous contrast. Reconstructed CTA MIP acquisitions were also performed. INDICATION: Shortness of breath, chest pain. COMPARISON: None. FINDINGS: Examination is limited due to timing of the contrast bolus. There is mixing artifact in the left and right pulmonary arteries. The main pulmonary artery appears normal. Cannot exclude central or distal branch pulmonary emboli. The aorta is normal. The heart is not enlarged. The lungs are clear. No pleural or pericardial effusion is seen. Osseous structures are grossly unremarkable. Visualized upper abdominal solid organs are intact. IMPRESSION: 1. Significantly limited examination due to timing of the contrast bolus. Cannot exclude pulmonary embolus. Study may be repeated or a VQ scan obtained. 2. Remainder of the chest is within normal limits. Dictated by: Dictated on workstation # [id number]
[2016-10-16] MEDS ORDERED: predniSONE 20 MG TAB PO ONE (20:15)
[2016-10-16] MEDS ORDERED: PRD20T PO (20:25)
[2016-10-16 20:26] VITALS: BP 137/83
--- OUTSIDE RECORDS SUMMARY | 2016-10-24 01:58 | XMS REPORT | Continuity of Care Document ---
Author Author [facility] Organization [facility] Address Unknown Phone Unavailable Allergies Active Description Code Type Severity Reaction Onset Reported/Identified Relationship to Patient Clinical Status Yes No Known Drug Allergies [id number] Drug Allergy Unknown N/ A 12/24/2010 Medications [...] V04.5 VACCIN FOR RABIES 07/12/2012 Ot V06.1 [id number], COMBINED [ 10/13/2012 VINH MCDOWELL, BEST Phillip Ot V01.5 RABIES CONTACT 01/02/2015 Ot V01.5 01/06/2015 Ot 786.50 01/06/2015 Ot 807.01 01/06/2015 Ot E000.8 01/06/2015 Ot E928.9 01/06/2015 Ot 780.60 01/06/2015 Ot 787.01 01/06/2015 Ot 789.00 01/06/2015 Ot V72.84 01/27/2015 SAJAN MCDOWELL, ARUNA Hope Ot R10.12 01/27/2015 SAJAN MCDOWELL, ARUNA [facility] Ot R10.32 02/21/2015 Ot V01.5 02/21/2015 SAJAN MCDOWELL, ARUNA [facility] Ot R10.12 02/21/2015 SAJAN MCDOWELL, ARUNA [facility] [...] LEFT LOWER QUADRANT PAIN 09/27/2015 ANISHA DEY [employer] Ot R07.89 OTHER CHEST PAIN 09/28/2015 SAJAN MCDOWELL, ARUNA L Ot R10.12 LEFT UPPER QUADRANT PAIN 09/28/2015 SAJAN MCDOWELL, ARUNA L Ot R10.32 LEFT LOWER QUADRANT PAIN 10/11/2015 ANISHA DEY [employer] Ot R07.89 OTHER CHEST PAIN 10/12/2015 ANISHA DEY [employer] Ot R07.89 OTHER CHEST PAIN 11/01/2015 Ot V01.5 RABIES CONTACT 11/01/2015 ANISHA DEY [facility] Ot R07.89 OTHER CHEST PAIN 04/02/2016 Ot [...] LEFT LOWER QUADRANT PAIN 04/02/2016 ANISHA DEY [facility] Ot R07.89 OTHER CHEST PAIN 04/03/2016 ARUNA [...] Ot V01.5 RABIES CONTACT 04/23/2016 ANISHA DEY [facility] Ot R07.89 OTHER CHEST PAIN 04/23/2016 ARUNA [...] I65.23 OCCLUSION AND STENOSIS OF BILATERAL BASS 07/03/2016 JOSE DE JESUS SPEAR MD Ot E66.9 OBESITY, UNSPECIFIED 07/03/2016 JOSE DE JESUS SPEAR MD Ot E78.1 PURE HYPERGLYCERIDEMIA 07/03/2016 JOSE DE JESUS SPEAR MD Ot I11.9 HYPERTENSIVE HEART DISEASE WITHOUT HEART 07/03/2016 JOSE DE JESUS SPEAR MD Ot I25.10 ATHSCL HEART DISEASE OF [place] CORONARY 07/03/2016 JOSE DE JESUS SPEAR MD Ot I34.0 NONRHEUMATIC MITRAL (VALVE) INSUFFICIENC 07/03/2016 JOSE DE JESUS SPEAR MD Ot R06.02 SHORTNESS OF BREATH 07/03/2016 JOSE DE JESUS SPEAR MD Ot R07.89 OTHER CHEST PAIN 07/03/2016 JOSE DE JESUS SPEAR MD Ot R53.83 OTHER FATIGUE 07/03/2016 JOSE DE JESUS SPEAR MD Ot Z68.32 BODY MASS INDEX (BMI) 32.0-32.9, ADULT 07/03/2016 JOSE DE JESUS SPEAR MD Ot Z79.899 OTHER LINING SETTER (CURRENT) DRUG THERAPY 07/03/2016 JOSE DE JESUS SPEAR MD Ot Z87.891 PERSONAL HISTORY OF NICOTINE DEPENDENCE 07/19/2016 JOSE DE JESUS SPEAR MD Ot [...] MD Ot I25.10 ATHSCL HEART DISEASE OF [place] CORONARY 07/22/2016 JOSE DE JESUS SPEAR MD [...] DE JESUS SPEAR MD Ot Z79.899 OTHER FCI (CURRENT) DRUG THERAPY 07/22/2016 JOSE DE JESUS SPEAR MD Ot Z87.891 PERSONAL HISTORY OF NICOTINE DEPENDENCE 07/24/2016 JOSE DE JESUS SPEAR MD Ot E66.9 OBESITY, UNSPECIFIED 07/24/2016 JOSE DE JESUS SPEAR MD Ot E78.1 PURE HYPERGLYCERIDEMIA 07/24/2016 JOSE DE JESUS SPEAR MD Ot I11.9 HYPERTENSIVE HEART DISEASE WITHOUT HEART 07/24/2016 JOSE DE JESUS SPEAR MD Ot I25.10 ATHSCL HEART DISEASE OF [place] CORONARY 07/24/2016 JOSE DE JESUS SPEAR MD [...] DE JESUS SPEAR MD Ot Z79.899 OTHER LINING SETTER (CURRENT) DRUG THERAPY 07/24/2016 JOSE DE JESUS SPEAR MD, Ot Z87.891 PERSONAL HISTORY OF NICOTINE DEPENDENCE 07/25/2016 JOSE DE JESUS SPEAR MD Ot G47.10 HYPERSOMNIA, UNSPECIFIED 07/25/2016 JOSE DE JESUS SPEAR MD Ot I10 ESSENTIAL (PRIMARY) HYPERTENSION 07/25/2016 JOSE ED JESUS SPEAR MD Ot R06.83 SNORING 08/22/2016 JOSE DE JESUS SPEAR MD Ot E66.9 OBESITY, UNSPECIFIED 08/22/2016 JOSE DE JESUS SPEAR MD Ot E78.1 PURE HYPERGLYCERIDEMIA 08/22/2016 JOSE DE JESUS SPEAR MD Ot I10 ESSENTIAL (PRIMARY) HYPERTENSION 08/22/2016 JOSE DE JESUS SPEAR MD Ot I34.0 NONRHEUMATIC MITRAL (VALVE) INSUFFICIENC 08/22/2016 JOSE DE JESUS SPEAR MD Ot I51.9 HEART DISEASE, UNSPECIFIED 08/22/2016 JOSE DE JESUS SPEAR MD Ot R07.89 OTHER CHEST PAIN 08/27/2016 JOSE DE JESUS SPEAR MD Ot E66.9 OBESITY, UNSPECIFIED 08/27/2016 JOSE DE JESUS SPEAR MD Ot E78.1 PURE HYPERGLYCERIDEMIA 08/27/2016 JOSE DE JESUS SPEAR MD Ot I10 ESSENTIAL (PRIMARY) HYPERTENSION 08/27/2016 JOSE DE JESUS SPEAR MD Ot I34.0 NONRHEUMATIC MITRAL (VALVE) INSUFFICIENC 08/27/2016 JOSE DE JESUS SPEAR MD Ot I51.9 HEART DISEASE, UNSPECIFIED 08/27/2016 JOSE DE JESUS SPEAR MD Ot R07.89 OTHER CHEST PAIN 08/27/2016 JOSE DE JESUS SPEAR MD Ot E66.9 OBESITY, UNSPECIFIED 08/27/2016 JOSE DE JESUS SPEAR MD Ot E78.1 PURE HYPERGLYCERIDEMIA 08/27/2016 JOSE DE JESUS SPEAR MD Ot I10 ESSENTIAL (PRIMARY) HYPERTENSION 08/27/2016 JOSE DE JESUS SPEAR MD Ot I34.0 NONRHEUMATIC MITRAL (VALVE) INSUFFICIENC 08/27/2016 JOSE DE JESUS SPEAR MD Ot I51.9 HEART DISEASE, UNSPECIFIED 08/27/2016 JOS EDE JESUS SPEAR MD Ot R07.89 OTHER CHEST PAIN 09/06/2016 JOSE DE JESUS SPEAR MD Ot E66.9 OBESITY, UNSPECIFIED 09/06/2016 JOSE DE JESUS SPEAR MD Ot E78.1 PURE HYPERGLYCERIDEMIA 09/06/2016 JOSE DE JESUS SPEAR MD Ot I10 ESSENTIAL (PRIMARY) HYPERTENSION 09/06/2016 JOSE DE JESUS SPEAR MD Ot I34.0 NONRHEUMATIC MITRAL (VALVE) INSUFFICIENC 09/06/2016 JOSE DE JESUS SPEAR MD Ot I51.9 HEART DISEASE, UNSPECIFIED 09/06/2016 JOSE DE JESUS SPEAR MD Ot R07.89 OTHER CHEST PAIN 09/30/2016 JOSE DE JESUS SPEAR MD Ot E66.09 OTHER OBESITY DUE TO EXCESS CALORIES 09/30/2016 JOSE DE JESUS SPEAR MD Ot E78.1 PURE HYPERGLYCERIDEMIA 09/30/2016 JOSE DE JESUS SPEAR MD Ot E83.42 HYPOMAGNESEMIA 09/30/2016 JOSE DE JESUS SPEAR MD Ot I51.9 HEART DISEASE, UNSPECIFIED 09/30/2016 JOSE DE JESUS SPEAR MD Ot R07.89 OTHER CHEST PAIN 10/16/2016 TRISH WINSTON MD Ot I10 ESSENTIAL (PRIMARY) HYPERTENSION 10/16/2016 TRISH WINSTON MD Ot J20.9 ACUTE BRONCHITIS, UNSPECIFIED 10/16/2016 TRISH WINSTON MD Ot J44.0 CHRONIC OBSTRUCTIVE PULMON DISEASE W ACU 10/16/2016 TRISH WINSTON MD Ot K21.9 GASTRO-ESOPHAGEAL REFLUX DISEASE WITHOUT 10/16/2016 TRISH WINSTON MD Ot R06.00 DYSPNEA, UNSPECIFIED 10/16/2016 TRISH WINSTON MD Ot Z82.49 FAMILY HX OF ISCHEM HEART DIS AND OTH DI 10/19/2016 TRISH WINSTON MD Ot I10 ESSENTIAL (PRIMARY) HYPERTENSION 10/19/2016 TRISH WINSTON MD Ot J20.9 ACUTE BRONCHITIS, UNSPECIFIED 10/19/2016 TRISH WINSTON MD Ot J44.0 CHRONIC OBSTRUCTIVE PULMON DISEASE W ACU 10/19/2016 TRISH WINSTON MD Ot K21.9 GASTRO-ESOPHAGEAL REFLUX DISEASE WITHOUT 10/19/2016 TRISH WINSTON MD Ot R06.00 DYSPNEA, UNSPECIFIED 10/19/2016 TRISH WINSTON MD, Ot Z82.49 FAMILY HX OF ISCHEM HEART DIS AND OTH DI 10/22/2016 ARUNA MOELLER MD, Ot I10 ESSENTIAL (PRIMARY) HYPERTENSION 10/22/2016 ARUNA MOELLER MD Ot I65.23 OCCLUSION AND STENOSIS OF BILATERAL BASS 10/22/2016 ARUNA MOELLER MD Ot R06.02 SHORTNESS OF BREATH 10/22/2016 ARUNA MOELLER MD Ot R06.09 OTHER FORMS OF DYSPNEA Procedures Results Test Result Range Complete blood [...] resistant Staphylococcus aureus (MRSA) screening culture NEG NRG Automated blood complete blood count (hemogram) panel [...] in VLDL measurement (mass/volume) 25 mg/dL 5-40 Complete blood count (CBC) with automated white blood cell (WBC) differential - 10/16/16 17:15 Blood leukocytes automated count (number/volume) 7.4 10*3/ uL 4.3-11.0 Blood erythrocytes automated count (number/volume) 4.60 10*6 /uL 4.35-5.85 Venous blood hemoglobin measurement (mass/volume) 14.5 g/dL 13.3-17.7 Blood hematocrit (volume fraction) 43 % 40-54 Automated erythrocyte mean corpuscular volume 92 [foz_us] 80-99 Automated erythrocyte mean corpuscular hemoglobin (mass per erythrocyte) 32 pg 25-34 Automated erythrocyte mean corpuscular hemoglobin concentration measurement ( mass/volume) 34 g/dL 32-36 Automated erythrocyte distribution width ratio 12.6 % 10.0-14.5 Automated blood platelet count (count/volume) 157 10*3/uL 130-400 Automated blood platelet mean volume measurement 12.1 [foz_ us] 7.4-10.4 Automated blood neutrophils/100 leukocytes 57 % 42-75 Automated blood lymphocytes/100 leukocytes 29 % 12-44 Blood monocytes/100 leukocytes 10 % 0-12 Automated blood eosinophils/100 leukocytes 4 % 0-10 Automated blood basophils/100 leukocytes 0 % 0-10 Blood neutrophils automated count (number/volume) 4.2 10*3 1.8-7.8 Blood lymphocytes automated count (number/volume) 2.1 10*3 1.0-4.0 Blood monocytes automated count (number/volume) 0.7 10*3 0.0-1.0 Automated eosinophil count 0.3 10*3/uL 0.0-0.3 Automated blood basophil count (count/volume) 0.0 10*3/uL 0.0-0.1 PT panel in platelet poor plasma by coagulation assay - 10/16/16 17:15 Prothrombin time (PT) in platelet poor plasma by coagulation assay 12.9 s 12.2-14.7 INR in platelet poor plasma or blood by coagulation assay 1.0 0.8-1.4 Activated partial thromboplastin time (aPTT) in platelet poor plasma bycoagulation assay - 10/16/16 17:15 Activated partial thromboplastin time (aPTT) in platelet poor plasma bycoagulation assay 26 s 24-35 Comprehensive metabolic panel - 10/16/16 17:15 Serum or plasma sodium measurement (moles/volume) 139 mmol/ L 135-145 Serum or plasma potassium measurement (moles/volume) 4.1 mmol/L 3.6-5.0 Serum or plasma chloride measurement (moles/volume) 104 mmol /L 98-107 Carbon dioxide 23 mmol/L 21-32 Serum or plasma anion gap determination (moles/volume) 12 mmol/L 5-14 Serum or plasma urea nitrogen measurement (mass/volume) 12 mg/dL 7-18 Serum or plasma creatinine measurement (mass/volume) 0.97 mg /dL 0.60-1.30 Serum or plasma urea nitrogen/creatinine mass ratio 12 NRG Serum or plasma creatinine measurement with calculation of estimated glomerular filtration rate > NRG Serum or plasma glucose measurement (mass/volume) 88 mg/dL 70-105 Serum or plasma calcium measurement (mass/volume) 9.2 mg/dL 8.5-10.1 Serum or plasma total bilirubin measurement (mass/volume) 1.2 mg/dL 0.1-1.0 Serum or plasma alkaline phosphatase measurement (enzymatic activity/volume) 50 U/L 40-136 Serum or plasma aspartate aminotransferase measurement (enzymatic activity/ volume) 27 U/L 5-34 Serum or plasma alanine aminotransferase measurement (enzymatic activity/volume ) 46 U/L 0-55 Serum or plasma protein measurement (mass/volume) 7.3 g/dL 6.4-8.2 Serum or plasma albumin measurement (mass/volume) 4.5 g/dL 3.2-4.5 Magnesium - 10/16/16 17:15 Magnesium 2.2 mg/dL 1.8-2.4 Serum or plasma creatine kinase measurement (enzymatic activity/volume) - 10/16 17:15 Serum or plasma creatine kinase measurement (enzymatic activity/volume) 229 U/L 30-200 Serum or plasma creatine kinase MB measurement (enzymatic activity/volume) - 17:15 Serum or plasma creatine kinase MB measurement (enzymatic activity/volume) 4.1 ng/mL <6.6 Serum or plasma troponin i.cardiac measurement (mass/volume) - 10/16/16 17:15 Serum or plasma troponin i.cardiac measurement (mass/volume) < ng/mL <0.30 Serum or plasma lithium measurement (moles/volume) - 10/16/16 17:15 BNP level < pg/mL <100.0 Serum or plasma amylase measurement (enzymatic activity/volume) - 10/16/16 17: 15 Serum or plasma amylase measurement (enzymatic activity/volume) 48 U/L 25-125 Lipase - 10/16/16 17:15 Lipase 12 U/L 8-78 Serum or plasma thyrotropin measurement by detection limit <=0.05 miu/l (units/ volume) - 10/16/16 17:15 Serum or plasma thyrotropin measurement by detection limit <=0.05 miu/l (units/ volume) 1.14 u[iU]/mL 0.35-4.94 Fibrin D-dimer FEU measurement in platelet poor plasma (mass/volume) - 17:15 Fibrin D-dimer FEU measurement in platelet poor plasma (mass/volume) < ug/mL 0.00-0.49 Urine drug screening test - 10/16/16 17:42 Urine phencyclidine detection by screening method NEGATIVE NEGATIVE Urine benzodiazepines detection by screening method NEGATIVE NEGATIVE Urine cocaine detection NEGATIVE NEGATIVE Urine amphetamines detection by screening method NEGATIVE NEGATIVE Urine methamphetamine detection by screening method NEGATIVE NEGATIVE Urine cannabinoids detection by screening method NEGATIVE NEGATIVE Urine opiates detection by screening method NEGATIVE NEGATIVE Urine barbiturates detection NEGATIVE NEGATIVE Screening urine tricyclic antidepressants detection NEGATIVE NEGATIVE Urine methadone detection by screening method NEGATIVE NEGATIVE Urine oxycodone detection NEGATIVE NEGATIVE Urine propoxyphene detection NEGATIVE NEGATIVE Encounters ACCT No. Visit Date/Time Discharge Status Pt. Type Provider Facility Loc./Unit Complaint [id number] 10/16/2016 17:09:00 2016 20:26:00 DIS Emergency CATRACHITO MCDOWELL, TRISH Dias [facility] ER SOB [id number] 07/24/2016 21:02:00 2016 07:00:00 DIS Outpatient JOSE DE JESUS SPEAR MD [facility] SLEEP LEO,HTN,MORNING HEADACHE [id number] 07/03/2016 07:52:00 2016 15:55:00 DIS Outpatient JOSE DE JESUS SPEAR MD [facility] CATH CP,HTN,CAD [id number] 04/23/2016 22:37:00 2016 14:05:00 DIS Outpatient JOSE DE JESUS SPEAR MD [facility] ICU CHEST PAIN,HYPERTENSION [id number] 01/06/2015 10:02:00 2014 23:59:59 CLS Outpatient ARUNA MOELLER MD [facility] RAD LUQ, LLUQ PAIN [id number] 07/26/2012 08:55:00 2012 00:01:00 DIS Outpatient VINH MCDOWELL, BEST Phillip [facility] SDC DOG BITE ON 07/11 [id number] 10/28/2016 08:15:00 PEN Preadmit AMADO WALTER APRN [facility] RT DYSPNEA R06.00 [id number] 10/25/2016 10:15:00 PEN Preadmit AMADO WALTER APRN [facility] RAD LEG SWELLING [id number] 10/09/2016 06:57:00 ACT Outpatient ARUNA MOELLER MD [facility] RT SOB [id number] 09/27/2016 13:36:00 ACT Outpatient JOSE DE JESUS SPEAR MD [facility] CARD CHEST PAIN SYNDROME [id number] 09/06/2016 15:12:00 ACT Outpatient JOSE DE JESUS SPEAR MD [facility] RAD ABD PAIN R10.9 [id number] 07/18/2016 08:12:00 ACT Outpatient JOSE DE JESUS SPEAR MD [facility] CARD CHEST PAIN SYNDROME,HTN,MR [id number] 04/02/2016 10:45:00 ACT Outpatient ARUNA MOELLER MD [facility] RAD AMS, HTN [id number] 09/26/2015 10:24:00 ACT Outpatient ANISHA DEY [facility] RAD CHEST PAIN [id number] 01/06/2015 10:00:00 Document Registration [id number] 10/14/2012 00:00:00 Document Registration [id number] 07/11/2012 20:08:00 Document Registration [id number] 03/11/2012 07:18:00 Document Registration [id number] 02/05/2012 15:51:00 Document Registration [id number] 11/21/2011 15:51:00 Document Registration [id number] 01/23/2011 14:06:00 Document Registration [id number] 12/24/2010 11:34:00 Document Registration
== END 2016-10-16 20:26 | disposition home or self-care (01) ==
LOC: EDUNIT# 17:08 → ER 17:09
DX: J44.0 Chronic obstructive pulmonary disease with (acute) lower respiratory infection (principal); J20.9 Acute bronchitis, unspecified; I10 Essential (primary) hypertension; K21.9 Gastro-esophageal reflux disease without esophagitis; Z82.49 Family history of ischemic heart disease and other diseases of the circulatory system
CPT/HCPCS: 36415; 71275; 80053; 80306; 82150; 82550; 82553; 83690; 83735; 83880; 84443; 84484; 85025; 85379; 85610; 85730; 93005; 93041; 94640; 94664; 96360

== ENCOUNTER → 2016-12-16 | Outpatient (CLI) | payer OTHER ==
[~2016-12-16] MED LIST changes: +MULT-974 PO; +PRD20T PO
--- NOTE | 2016-12-16 15:47 | Diagnostic Imaging Report ---
EXAMINATION: Bilateral lower extremity duplex venous ultrasound. TECHNIQUE: DVT protocol. Multiple sonographic images with color Doppler and waveform interrogation were performed of the lower extremity veins, bilaterally, with compression and augmentation maneuvers. INDICATION: Bilateral leg swelling. FINDINGS: The lower extremity veins from the common femoral veins to below the knee veins were examined with normal color-flow, compressibility and normal waveform demonstrated. The great saphenous vein bilaterally is patent. IMPRESSION: No evidence of DVT in either lower extremity. Dictated by: Dictated on workstation # [id number]
== END ==
LOC: RAD 14:39
PROVIDERS: ATTEND Nurse Practitioner Family
DX: R22.43 Localized swelling, mass and lump, lower limb, bilateral (principal); R06.00 Dyspnea, unspecified; R42 Dizziness and giddiness; R55 Syncope and collapse
CPT/HCPCS: 93970

== ENCOUNTER → 2016-12-31 | Outpatient (CLI) | payer OTHER ==
[2016-12-31 16:09] LABS: BLOOD UREA NITROGEN 13 MG/DL (7-18); BUN/CREATININE RATIO 14; CREATININE SERUM 0.95 MG/DL (0.60-1.30); GFR ESTIMATED > 60
== END ==
LOC: RAD 15:11
PROVIDERS: ATTEND Nurse Practitioner Family
DX: J44.9 Chronic obstructive pulmonary disease, unspecified; R55 Syncope and collapse; M79.89 Other specified soft tissue disorders; R42 Dizziness and giddiness; R06.00 Dyspnea, unspecified
CPT/HCPCS: 36415; 82565; 84520

== ENCOUNTER 2017-03-13 17:44 | Inpatient (IN) | payer OTHER ==
[~2017-03-13] VITALS: Ht 172.7 cm; Wt 99.0 kg
--- OUTSIDE RECORDS SUMMARY | 2017-03-13 17:50 | XMS REPORT | Continuity of Care Document ---
Author Author [employer] Organization [place] Address Unknown Phone Unavailable Care Team Providers Care Continuity Coordinator Name Role Phone [employer] Unavailable Unavailable Problems Medications Allergies, Adverse Reactions, Alerts Immunizations Results Vital Signs Encounters Procedures Plan of Care Social History Assessment and Plan Family History Value Date Source Advance Directives Order Name Results Value Date Source
--- OUTSIDE RECORDS SUMMARY | 2017-03-13 17:51 | XMS REPORT | Continuity of Care Document ---
Author Author [facility] Organization [facility] Address Unknown Phone Unavailable Allergies Active Description Code Type Severity Reaction Onset Reported/Identified Relationship to Patient Clinical Status Yes No Known Drug Allergies [id number] Drug Allergy Unknown N/A 12/24/2010 Medications There is no data. Problems Date Dx Coded Attending Type Code [...] V04.5 VACCIN FOR RABIES 07/12/2012 Ot V06.1 DIPHTHERIA- TETANUS-PERTUSSIS, COMBINED [ 10/13/2012 VINH MCDOWELL, BEST Phillip Ot V01.5 RABIES CONTACT 01/02/2015 Ot V01.5 01/06/2015 Ot 786.50 01/06/2015 Ot 807.01 01/06/2015 Ot E000.8 01/06/2015 Ot E928.9 01/06/2015 Ot 780.60 01/06/2015 Ot 787.01 01/06/2015 Ot 789.00 01/06/2015 Ot V72.84 01/27/2015 SAJAN MCDOWELL, ARUNA Hope Ot R10.12 01/27/2015 ARUNA MOELLER MD Ot R10.32 02/21/2015 Ot V01.5 02/21/2015 SAJAN [...] PAIN, UNSPECIFIED SITE 09/26/2015 Ot V72.84 EXAM PRE- OPERATIVE NOS 09/26/2015 SAJAN MCDOWELL, ARUNA L Ot R10.12 LEFT UPPER QUADRANT PAIN 09/26/2015 SAJAN MCDOWELL, ARUNA L Ot R10.32 LEFT LOWER QUADRANT PAIN 09/27/2015 ANISHA DEY BEHAVIORAL THERAPIST Ot R07.89 OTHER CHEST PAIN 09/28/2015 SAJAN MCDOWELL, ARUNA L Ot R10.12 LEFT UPPER QUADRANT PAIN 09/28/2015 SAJAN MCDOWELL, ARUNA L Ot R10.32 LEFT LOWER QUADRANT PAIN 10/11/2015 ANISHA DEY BEHAVIORAL THERAPIST Ot R07.89 OTHER CHEST PAIN 10/12/2015 ANISHA DEY BEHAVIORAL THERAPIST Ot R07.89 OTHER CHEST PAIN 11/01/2015 Ot V01.5 RABIES CONTACT 11/01/2015 ANISHA DEY [facility] Ot R07.89 OTHER CHEST PAIN 04/02/2016 Ot 786.50 CHEST PAIN NOS 04/02/2016 Ot 807.01 FRACTURE ONE RIB-CLOSED 04/02/2016 Ot E000.8 OTHER EXTERNAL CAUSE STATUS 04/02/2016 Ot E928.9 ACCIDENT NOS 04/02/2016 Ot 780.60 FEVER, UNSPECIFIED 04/02/2016 Ot 787.01 NAUSEA WITH VOMITING 04/02/2016 Ot 789.00 ABDOMINAL PAIN, UNSPECIFIED SITE 04/02/2016 Ot V72.84 EXAM PRE- OPERATIVE NOS 04/02/2016 SAJAN MCDOWELL, ARUNA Hope Ot R10.12 LEFT UPPER QUADRANT PAIN 04/02/2016 ARUNA MOELLER MD Ot R10.32 LEFT LOWER QUADRANT PAIN 04/02/2016 ANISHA DEY [facility] Ot R07.89 OTHER CHEST PAIN 04/03/2016 [...] Ot V01.5 RABIES CONTACT 04/23/2016 ANISHA DEY [facility] Ot R07.89 OTHER CHEST PAIN 04/23/2016 [...] ESSENTIAL (PRIMARY) HYPERTENSION 04/24/2016 JOSE DE JESUS SEPAR MD Ot K21.9 GASTRO-ESOPHAGEAL REFLUX DISEASE WITHOUT [...] ISCHEM HEART DIS AND OTH DI 04/25/2016 SAJAN MCDOWELL, ARUNA Hope Ot I10 ESSENTIAL (PRIMARY) HYPERTENSION 04/25/2016 ARUNA MOELLER MD Ot I65.23 OCCLUSION AND STENOSIS OF BILATERAL BASS 07/03/2016 JOSE DE JESUS SPEAR MD Ot E66.9 OBESITY, UNSPECIFIED 07/03/2016 JOSE DE JESUS SPEAR MD Ot E78.1 PURE HYPERGLYCERIDEMIA 07/03/2016 JOSE DE JESUS SPEAR MD Ot I11.9 HYPERTENSIVE HEART DISEASE WITHOUT HEART 07/03/2016 JOSE DE JESUS SPEAR MD Ot I25.10 ATHSCL HEART DISEASE OF [place] CORONARY 07/03/2016 JOSE DE JESUS SPEAR MD [...] DE JESUS SPEAR MD Ot Z79.899 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 07/03/2016 JOSE DE JESUS [...] MD Ot I25.10 ATHSCL HEART DISEASE OF [place] CORONARY 07/22/2016 JOSE DE JESUS SPEAR MD [...] DE JESUS SPEAR MD Ot Z79.899 OTHER ALF (CURRENT) DRUG THERAPY 07/22/2016 JOSE DE JESUS SPEAR MD Ot Z87.891 PERSONAL HISTORY OF NICOTINE DEPENDENCE 07/24/2016 JOSE DE JESUS SPEAR MD Ot E66.9 OBESITY, UNSPECIFIED 07/24/2016 JOSE DE JESUS SPEAR MD Ot E78.1 PURE HYPERGLYCERIDEMIA 07/24/2016 JOSE DE JESUS SPEAR MD Ot I11.9 HYPERTENSIVE HEART DISEASE WITHOUT HEART 07/24/2016 JOSE DE JESUS SPEAR MD Ot I25.10 ATHSCL HEART DISEASE OF [place] CORONARY 07/24/2016 JOSE DE JESUS SPEAR MD [...] DE JESUS SPEAR MD Ot Z79.899 OTHER ALF (CURRENT) DRUG THERAPY 07/24/2016 JOSE DE JESUS SPEAR MD Ot Z87.891 PERSONAL HISTORY OF NICOTINE DEPENDENCE 07/25/2016 JOSE DE JESUS SPEAR MD Ot G47.10 HYPERSOMNIA, UNSPECIFIED 07/25/2016 JOSE DE JESUS SPEAR MD Ot I10 ESSENTIAL (PRIMARY) HYPERTENSION 07/25/2016 JOSE DE JESUS SPEAR MD Ot R06.83 SNORING 08/22/2016 [...] ESSENTIAL (PRIMARY) HYPERTENSION 09/06/2016 JOSE DE JESUS SEPAR MD Ot I34.0 NONRHEUMATIC MITRAL (VALVE) INSUFFICIENC [...] DIS AND OTH DI 10/19/2016 TRISH WINSTON MD, Ot I10 ESSENTIAL (PRIMARY) HYPERTENSION 10/19/2016 TRISH WINSTON MD, Ot J20.9 ACUTE BRONCHITIS, UNSPECIFIED 10/19/2016 TRISH WINSTON MD Ot J44.0 CHRONIC OBSTRUCTIVE PULMON DISEASE W ACU 10/19/2016 TRISH WINSTON MD, Ot K21.9 GASTRO-ESOPHAGEAL REFLUX DISEASE WITHOUT 10/19/2016 [...] MD Ot R06.09 OTHER FORMS OF DYSPNEA 11/04/2016 Ot V01.5 RABIES CONTACT 11/04/2016 ANISHA DEY Ot R07.89 OTHER CHEST PAIN 11/04/2016 ARUNA MOELLER MD Ot I10 ESSENTIAL (PRIMARY) HYPERTENSION 11/04/2016 ARUNA MOELLER MD Ot I65.23 OCCLUSION AND STENOSIS OF BILATERAL BASS 11/04/2016 JOSE DE JESUS SPEAR MD Ot E66.9 OBESITY, UNSPECIFIED 11/04/2016 JOSE DE JESUS SPEAR MD Ot E78.1 PURE HYPERGLYCERIDEMIA 11/04/2016 JOSE DE JESUS SPEAR MD Ot I10 ESSENTIAL (PRIMARY) HYPERTENSION 11/04/2016 JOSE DE JESUS SPEAR MD Ot I34.0 NONRHEUMATIC MITRAL (VALVE) INSUFFICIENC 11/04/2016 JOSE DE JESUS SPEAR MD Ot I51.9 HEART DISEASE, UNSPECIFIED 11/04/2016 JOSE DE JESUS SPEAR MD Ot R07.89 OTHER CHEST PAIN 11/04/2016 ARUNA MOELLER MD Ot R06.02 SHORTNESS OF BREATH 11/04/2016 CARLOS MANUEL MOELLER MDHEL L Ot R06.09 OTHER FORMS OF DYSPNEA 12/22/2016 AMADO WALTER APRN Ot R06.00 DYSPNEA, UNSPECIFIED 12/22/2016 AMADO WALTER APRN Ot R22.43 LOCALIZED SWELLING, MASS AND LUMP, LOWER 12/22/2016 AMADO WALTER APRN Ot R42 DIZZINESS AND GIDDINESS 12/22/2016 AMADO WALTER APRN Ot R55 SYNCOPE AND COLLAPSE 12/26/2016 JOSE DE JESUS SPEAR MD Ot E66.09 OTHER OBESITY DUE TO EXCESS CALORIES 12/26/2016 JOSE DE JESUS SPEAR MD Ot E78.1 PURE HYPERGLYCERIDEMIA 12/26/2016 JOSE DE JESUS SPEAR MD Ot E83.42 HYPOMAGNESEMIA 12/26/2016 JOSE DE JESUS SPEAR MD Ot I51.9 HEART DISEASE, UNSPECIFIED 12/26/2016 JOSE DE JESUS SPEAR MD Ot R07.89 OTHER CHEST PAIN 12/27/2016 JOSE DE JESUS SPEAR MD Ot E66.09 OTHER OBESITY DUE TO EXCESS CALORIES 12/27/2016 JOSE DE JESUS SPEAR MD Ot E78.1 PURE HYPERGLYCERIDEMIA 12/27/2016 JOSE DE JESUS SPEAR MD Ot E83.42 HYPOMAGNESEMIA 12/27/2016 JOSE DE JESUS SPEAR MD Ot I51.9 HEART DISEASE, UNSPECIFIED 12/27/2016 JOSE DE JESUS SPEAR MD Ot R07.89 OTHER CHEST PAIN 01/02/2017 AMADO WALTER APRN Ot J44.9 CHRONIC OBSTRUCTIVE PULMONARY DISEASE, U 01/02/2017 AMADO WALTER APRN Ot M79.89 OTHER SPECIFIED SOFT TISSUE DISORDERS 01/02/2017 AMADO WALTER APRN Ot R06.00 DYSPNEA, UNSPECIFIED 01/02/2017 AMADO WALTER APRN Ot R42 DIZZINESS AND GIDDINESS 01/02/2017 AMADO WALTER APRN Ot R55 SYNCOPE AND COLLAPSE 03/06/2017 JOSE DE JESUS SPEAR MD Ot R00.1 BRADYCARDIA, UNSPECIFIED 03/06/2017 JOSE DE JESUS SPEAR MD Ot R07.89 OTHER CHEST PAIN 03/06/2017 JOSE DE JESUS SPEAR MD Ot R42 DIZZINESS AND GIDDINESS 03/06/2017 JOSE DE JESUS SPEAR MD Ot R53.81 OTHER MALAISE Procedures There is no data. Results Test Result Range Complete blood count (CBC) with automated white blood cell (WBC) differential - 04/23/16 19:56 Blood leukocytes automated count (number/volume) 8.3 10*3/uL 4.3-11.0 Blood erythrocytes automated count (number/volume) 4.67 10*6/uL 4.35-5.85 Venous blood hemoglobin measurement (mass/volume) 15.2 [...] Automated blood platelet mean volume measurement 12.1 [foz_us] 7.4-10.4 Automated blood neutrophils/100 leukocytes 62 % [...] Serum or plasma sodium measurement (moles/volume) 138 mmol/L 135-145 Serum or plasma potassium measurement (moles/volume) 5.0 mmol/L 3.6-5.0 Serum or plasma chloride measurement (moles/volume) 106 mmol/L 98-107 Carbon dioxide 21 mmol/L 21-32 Serum or plasma anion gap determination (moles/volume) 11 mmol/L 5-14 Serum or plasma urea nitrogen measurement (mass/volume) 10 mg/dL 7-18 Serum or plasma creatinine measurement (mass/volume) 1.02 mg/dL 0.60-1.30 Serum or plasma urea nitrogen/creatinine mass [...] or plasma troponin i.cardiac measurement (mass/volume) < ng/ mL <0.30 Myoglobin, serum - 04/23/16 19:56 Myoglobin, serum 98.7 ng/mL 10.0-92.0 Erythrocyte sedimentation rate by [place]gateergren method - 04/23/16 19:56 Erythrocyte sedimentation rate by westergren method 3 mm 0-30 Serum or plasma troponin i.cardiac measurement (mass/volume) - 04/23/16 20:56 Serum or plasma troponin i.cardiac measurement (mass/volume) < ng/ mL <0.30 Lipase - 04/23/16 20:56 Lipase 17 U/L 8-78 Serum or plasma C reactive protein measurement (mass/volume) - 04/23/16 20:56 Serum or plasma C reactive protein measurement (mass/volume) 0.11 mg /dL 0.00-0.50 Lipid 1996 panel - 04/24/16 04:13 Serum or plasma triglyceride measurement (mass/volume) 419 mg/dL <150 Serum or plasma cholesterol measurement (mass/volume) 141 mg/dL < 200 Serum or plasma cholesterol in HDL measurement (mass/volume) 27 mg/ dL 40-60 Cholesterol in LDL [mass/volume] in serum or plasma by direct assay 71 mg/dL 1-129 Serum or plasma cholesterol in VLDL measurement (mass/volume) 84 mg/ dL 5-40 Methicillin resistant Staphylococcus aureus (MRSA) screening culture - 08:23 Methicillin resistant Staphylococcus aureus (MRSA) screening culture NEG NRG Automated blood complete blood count (hemogram) panel - 07/03/16 08:29 Blood leukocytes automated count (number/volume) 6.6 10*3/uL 4.3-11.0 Blood erythrocytes automated count (number/volume) 4.53 10*6/uL 4.35-5.85 Venous blood hemoglobin measurement (mass/volume) 14.6 [...] Automated blood platelet mean volume measurement 11.8 [foz_us] 7.4-10.4 PT panel in platelet poor plasma [...] Serum or plasma sodium measurement (moles/volume) 141 mmol/L 135-145 Serum or plasma potassium measurement (moles/volume) 3.9 mmol/L 3.6-5.0 Serum or plasma chloride measurement (moles/volume) 106 mmol/L 98-107 Carbon dioxide 25 mmol/L 21-32 Serum or plasma anion gap determination (moles/volume) 10 mmol/L 5-14 Serum or plasma urea nitrogen measurement (mass/volume) 13 mg/dL 7-18 Serum or plasma creatinine measurement (mass/volume) 1.00 mg/dL 0.60-1.30 Serum or plasma urea nitrogen/creatinine mass [...] Serum or plasma cholesterol measurement (mass/volume) 161 mg/dL < 200 Serum or plasma cholesterol in HDL measurement (mass/volume) 36 mg/ dL 40-60 Cholesterol in LDL [mass/volume] in serum or plasma by direct assay 109 mg/dL 1-129 Serum or plasma cholesterol in VLDL measurement (mass/volume) 25 mg/ dL 5-40 Complete blood count (CBC) with automated white blood cell (WBC) differential - 10/16/16 17:15 Blood leukocytes automated count (number/volume) 7.4 10*3/uL 4.3-11.0 Blood erythrocytes automated count (number/volume) 4.60 10*6/uL 4.35-5.85 Venous blood hemoglobin measurement (mass/volume) 14.5 [...] Automated blood platelet mean volume measurement 12.1 [foz_us] 7.4-10.4 Automated blood neutrophils/100 leukocytes 57 % [...] Serum or plasma sodium measurement (moles/volume) 139 mmol/L 135-145 Serum or plasma potassium measurement (moles/volume) 4.1 mmol/L 3.6-5.0 Serum or plasma chloride measurement (moles/volume) 104 mmol/L 98-107 Carbon dioxide 23 mmol/L 21-32 Serum or plasma anion gap determination (moles/volume) 12 mmol/L 5-14 Serum or plasma urea nitrogen measurement (mass/volume) 12 mg/dL 7-18 Serum or plasma creatinine measurement (mass/volume) 0.97 mg/dL 0.60-1.30 Serum or plasma urea nitrogen/creatinine mass [...] or plasma troponin i.cardiac measurement (mass/volume) < ng/ mL <0.30 Serum or plasma lithium measurement (moles/volume) - 10/16/16 17:15 BNP level < pg/mL <100.0 Serum or plasma amylase measurement (enzymatic activity/volume) - 10/16/16 17: 15 Serum or plasma amylase measurement (enzymatic activity/volume) 48 U /L 25-125 Lipase - 10/16/16 17:15 Lipase 12 [...] Status Pt. Type Provider Facility Loc./Unit Complaint [id number] 03/05/2017 10:02:00 03/05/2017 23:59:59 CLS Outpatient JOSE DE JESUS SPEAR MD [facility] CARD R00.1 [id number] 02/10/2017 09:30:00 02/10/2017 23:59:59 CLS Preadmit JOSE DE JESUS SPEAR MD [facility] CARD BRADYCARDIA,DIZZINESS [id number] 12/31/2016 15:11:00 12/31/2016 23:59:59 CLS Outpatient AMADO WALTER APRN [facility] RAD COPD,LEG SWELLING [id number] 12/27/2016 12:00:00 12/27/2016 23:59:59 CLS Preadmit JOSE DE JESUS SPEAR MD [facility] CARD CHEST PAIN SYNDROME [id number] 09/27/2016 13:36:00 12/26/2016 00:01:00 DIS Outpatient JOSE DE JESUS SPEAR MD [facility] CARD CHEST PAIN SYNDROME [id number] 12/16/2016 14:39:00 12/16/2016 23:59:59 CLS Outpatient SABA, AMADO E [employer]LING BALL MARKER [facility] RAD R06.00 [id number] 12/13/2016 09:45:00 12/13/2016 23:59:59 CLS Preadmit SABA, AMADO E [employer] MARK[employer] [facility] RT R06.00 [id number] 10/28/2016 08:15:00 10/28/2016 23:59:59 CLS Preadmit SABA, AMADO E [employer] MARK[employer] [facility] RT DYSPNEA R06.00 [id number] 10/25/2016 10:15:00 10/25/2016 23:59:59 CLS Preadmit ASBA, AMADO E [employer] MARKER [facility] RAD LEG SWELLING [id number] 10/16/2016 17:09:00 10/16/2016 20:26:00 DIS Emergency TRISH WINSTON MD [facility] ER SOB [id number] 10/09/2016 06:57:00 10/09/2016 23:59:59 CLS Outpatient ARUNA MOELLER MD [facility] RT SOB [id number] 09/06/2016 15:12:00 09/06/2016 23:59:59 CLS Outpatient JOSE DE JESUS SPEAR MD [facility] RAD ABD PAIN R10.9 [id number] 07/24/2016 21:02:00 07/25/2016 07:00:00 DIS Outpatient JOSE DE JESUS SPEAR MD [facility] SLEEP LEO,HTN,MORNING HEADACHE [id number] 07/18/2016 08:12:00 07/18/2016 23:59:59 CLS Outpatient JOSE DE JESUS SPEAR MD [facility] CARD CHEST PAIN SYNDROME,HTN, MR [id number] 07/03/2016 07:52:00 07/03/2016 15:55:00 DIS Outpatient JOSE DE JESUS SPEAR MD [facility] CATH CP,HTN,CAD [id number] 04/23/2016 22:37:00 04/24/2016 14:05:00 DIS Inpatient JOSE DE JESUS SPEAR MD [facility] ICU CHEST PAIN,HYPERTENSION [id number] 04/02/2016 10:45:00 04/02/2016 23:59:59 CLS Outpatient ARUNA MOELLER MD [facility] RAD AMS, HTN [id number] 09/26/2015 10:24:00 09/26/2015 23:59:59 CLS Outpatient ANISHA DEY [facility] RAD CHEST PAIN [id number] 01/06/2015 10:02:00 01/06/2015 23:59:59 CLS Outpatient ARUNA MOELLER MD [facility] RAD LUQ, LLUQ PAIN [id number] 07/26/2012 08:55:00 10/13/2012 00:01:00 DIS Outpatient BEST JUSTICE MD [facility] SDC DOG BITE ON 07/11 [id number] 03/13/2017 17:46:00 ACT Emergency BEST JUSTICE MD [facility] ER ARRHYTHMIA,CHEST PAIN [id number] 01/06/2015 10:00:00 Document Registration [id number] 10/14/2012 00:00:00 Document Registration [id number] 07/11/2012 20:08:00 Document Registration [id number] 03/11/2012 07:18:00 Document Registration [id number] 02/05/2012 15:51:00 Document Registration [id number] 11/21/2011 15:51:00 Document Registration [id number] 01/23/2011 14:06:00 Document Registration [id number] 12/24/2010 11:34:00 Document Registration
[2017-03-13 18:12] LABS: BASOPHILS % (AUTO) 0 % (0-10); EOSINOPHILS # (AUTO) 0.4 10^3/uL (0.0-0.3); EOSINOPHILS % (AUTO) 5 % (0-10); LYMPHOCYTES % (AUTO) 29 % (12-44); MEAN CORPUSCULAR HEMOGLOBIN 32 PG (25-34); MEAN CORPUSCULAR HGB CONC 35 G/DL (32-36); MEAN CORPUSCULAR VOLUME 92 FL (80-99); MEAN PLATELET VOLUME 12.5 FL (7.4-10.4); MONOCYTES # (AUTO) 0.6 X 10^3 (0.0-1.0); MONOCYTES % (AUTO) 8 % (0-12); NEUTROPHILS # (AUTO) 3.9 X 10^3 (1.8-7.8); NEUTROPHILS % (AUTO) 57 % (42-75); PLATELET COUNT 164 10^3/uL (130-400); RED BLOOD COUNT 4.47 10^6/uL (4.35-5.85); RED CELL DISTRIBUTION WIDTH 12.1 % (10.0-14.5); WHITE BLOOD COUNT 6.9 10^3/uL (4.3-11.0)
[2017-03-13] MEDS ORDERED: DIAZ5TAB PO (18:29)
[2017-03-13 18:37] LABS: ALANINE AMINOTRANSFERASE 48 U/L (0-55); ALBUMIN 4.4 GM/DL (3.2-4.5); ANION GAP 11 MMOL/L (5-14); ASPARTATE AMINO TRANSFERASE 35 U/L (5-34); BILIRUBIN,TOTAL 0.8 MG/DL (0.1-1.0); BLOOD UREA NITROGEN 13 MG/DL (7-18); BUN/CREATININE RATIO 12; CALCIUM 9.3 MG/DL (8.5-10.1); CARBON DIOXIDE 24 MMOL/L (21-32); CHLORIDE 101 MMOL/L (98-107); CREATININE SERUM 1.05 MG/DL (0.60-1.30); GFR ESTIMATED > 60; GLUCOSE 154 MG/DL (70-105); MAGNESIUM 2.4 MG/DL (1.8-2.4); POTASSIUM 4.1 MMOL/L (3.6-5.0); SODIUM 136 MMOL/L (135-145); TOTAL PROTEIN 7.5 GM/DL (6.4-8.2)
--- NOTE | 2017-03-13 18:39 | ED Cardiac General ---
History of Present Illness General Chief Complaint: Cardiac/General Problems Stated Complaint: ARRHYTHMIA,CHEST PAIN Nursing Triage Note: pt to ed after holter monitor alarmed with an arythmia. pt has had syncopal or near syncopal episodes with soa for 14 months and has been wearing a holter monitor for eight days. Source: patient, old records Exam Limitations: no limitations History of Present Illness Time seen by provider: 17:45 Initial Comments Patient presents to ER by private conveyance with a chief complaint that earlier this evening about an hour prior to arrival he started experiencing some fluttering in his chest and then a tightening in his head and he felt like his about to pass out. He's been having sensations just like this for the past 14 months. They will occur sometimes multiple times a day and sometimes ago week or 2 between occurrences. He's had extensive workup to include heart catheter, stress test, referral for EGD, Valium for anxiety and a 48 hour Holter monitor without answers yet. 8 days ago he was put on a 30 day Holter monitor by Dr. Olmedo, cardiology. He was called by the monitoring company that he had a period of 7-8 seconds of asystole with regular P waves at 1606 today. A copy of the report was faxed to the ER. The patient denies a history of hypothyroidism, diabetes, previous coronary artery disease, smoking, familial early cardiac history. At the time of palpitations he did not experience any chills, sweats, nausea,. He did experience some shortness of breath transiently. Sleep study shows a normal sinus bradycardia with an average heart rate of 53. Moderate obstructive sleep apnea hypopnea syndrome. CPAP was ordered at 12 cm water pressure. Cardiac catheterization report from 07/03/2016 Dr. Olmedo: 1. Slow flow in the coronary system due to small vessel disease, nonobstructive disease. 2. Left ventricular hypertrophy with normal systolic function. Estimated ejection fraction 60%. Diastolic dysfunction with elevated left ventricular end-diastolic pressure. Hypertensive heart disease. 3. Normal abdominal aorta and renal arteries. Echocardiogram from 03/2016: 1. Normal left ventricular size and systolic function. Estimated ejection fraction 60%. Diastolic dysfunction is suggested by Doppler. 2. Left atrium is in the upper normal limit in size. 3. Mild mitral and tricuspid regurgitation. 4. Estimated pulmonary artery pressure of 30 mmHg. Allergies and Home Medications Allergies Coded Allergies: No Known Drug Allergies (Unverified , 12/24/10) Home Medications Cholecalciferol (Vitamin D3) 1,000 Unit Capsule, 1,000 UNIT PO DAILY, (Reported) Diazepam 5 Mg Tablet, 5 MG PO, (Reported) Esomeprazole Magnesium 20 Mg Tablet.dr, 20 MG PO DAILY, (Reported) Multivitamin 1 Each Tablet, 1 EACH PO DAILY, (Reported) Valsartan/Hydrochlorothiazide 1 Each Tablet, 1 EACH PO DAILY, #30 Prescribed by: MALLORY GARZA on 07/03/16 1224 Review of Systems Constitutional: No chills, No diaphoresis EENTM: No Blurred Vision, No Double Vision Respiratory: Denies Cough, Denies Shortness of Air Cardiovascular: See HPI, Denies Chest Pain, Denies Irregular Heart Rate, Palpitations Gastrointestinal: Denies Abdomen Distended, Denies Abdominal Pain, Denies Nausea Genitourinary: Denies Burning Musculoskeletal: No back pain, No joint pain Skin: No pruritus, No rash Psychiatric/Neurological: Denies Headache, Denies Numbness, Denies Paresthesia Past Zkzxida-Fioxxv-Jvutla Hx Patient Social History Alcohol Use: Occasionally Uses (Sixpack once or twice a week) Alcohol Beverage of Choice: Beer Recreational Drug Use: No Smoking Status: Never a Smoker Recent Foreign Travel: No Contact w/Someone Who Travel: No Recent Infectious Disease Expo: No Recent Hopitalizations: No Physical Abuse: No Sexual Abuse: No Mistreated: No Fear: No Immunizations Up To Date Tetanus Booster (TDap): Unknown Seasonal Allergies Seasonal Allergies: Yes Surgeries History of Surgeries: Yes (ACL bilat knees, hernia repair) Surgeries: Abdominal, Orthopedic Respiratory History of Respiratory Disorde: No Cardiovascular History of Cardiac Disorders: Yes (near syncopal episodes) Cardiac Disorders: Hypertension Neurological History of Neurological Disord: No Reproductive System Hx Reproductive Disorders: No Sexually Transmitted Disease: No HIV/AIDS: No Gastrointestinal History of Gastrointestinal Di: Yes Gastrointestinal Disorders: Gastroesophageal Reflux Musculoskeletal History of Musculoskeletal Dis: No Endocrine History of Endocrine Disorders: No Cancer History of Cancer: No Psychosocial History of Psychiatric Problem: No Suicide Risk Score: 0 Integumentary History of Skin or Integumenta: No Blood Transfusions History of Blood Disorders: No Family Medical History Significant Family History: CAD Over 55 Years Old Family Medial History: Abdominal aortic aneurysm 19 MOTHER, , Age:62, Onset:60 years & older Myocardial infarction 19 FATHER, , Age:61, Onset:60 years & older Physical Exam Vital Signs Vital Sign - Last 12Hours 03/13/17 18:19 Temp 98.1 Pulse 60 Resp 14 B/P (MAP) 174/92 (119) Pulse Ox 99 Capillary Refill : Less Than 3 Seconds General Appearance: No Apparent Distress, WD/WN, Anxious HEENT: PERRL/EOMI, Pharynx Normal Neck: Normal Inspection, Non Tender, Supple Respiratory: Chest Non Tender, Lungs Clear, Normal Breath Sounds Cardiovascular: Regular Rate, Rhythm, No Edema, No Gallop, No JVD, No Murmur, Normal Peripheral Pulses Gastrointestinal: Non Tender, Soft Extremity: Normal Capillary Refill, Normal Inspection, No Pedal Edema Neurologic/Psychiatric: Alert, Oriented x3 Skin: Normal Color, Warm/Dry Progress/Results/Core Measures Results/Orders Lab Results Laboratory Tests Test 03/13/17 18:00 Range/Units White Blood Count 6.9 4.3-11.0 10^3/uL Red Blood Count 4.47 4.35-5.85 10^6/uL Hemoglobin 14.5 13.3-17.7 G/DL Hematocrit 41 40-54 % Mean Corpuscular Volume 92 80-99 FL Mean Corpuscular Hemoglobin 32 25-34 PG Mean Corpuscular Hemoglobin Concent 35 32-36 G/DL Red Cell Distribution Width 12.1 10.0-14.5 % Platelet Count 164 130-400 10^3/uL Mean Platelet Volume 12.5 H 7.4-10.4 FL Neutrophils (%) (Auto) 57 42-75 % Lymphocytes (%) (Auto) 29 12-44 % Monocytes (%) (Auto) 8 0-12 % Eosinophils (%) (Auto) 5 0-10 % Basophils (%) (Auto) 0 0-10 % Neutrophils # (Auto) 3.9 1.8-7.8 X 10^3 Lymphocytes # (Auto) 2.0 1.0-4.0 X 10^3 Monocytes # (Auto) 0.6 0.0-1.0 X 10^3 Eosinophils # (Auto) 0.4 H 0.0-0.3 10^3/uL Basophils # (Auto) 0.0 0.0-0.1 10^3/uL Sodium Level 136 135-145 MMOL/L Potassium Level 4.1 3.6-5.0 MMOL/L Chloride Level 101 98-107 MMOL/L Carbon Dioxide Level 24 21-32 MMOL/L Anion Gap 11 5-14 MMOL/L Blood Urea Nitrogen 13 7-18 MG/DL Creatinine 1.05 0.60-1.30 MG/DL Estimat Glomerular Filtration Rate > 60 BUN/Creatinine Ratio 12 Glucose Level 154 H 70-105 MG/DL Calcium Level 9.3 8.5-10.1 MG/DL Magnesium Level 2.4 1.8-2.4 MG/DL Total Bilirubin 0.8 0.1-1.0 MG/DL Aspartate Amino Transf (AST/SGOT) 35 H 5-34 U/L Alanine Aminotransferase (ALT/SGPT) 48 0-55 U/L Alkaline Phosphatase 53 40-136 U/L Troponin I < 0.30 <0.30 NG/ML Total Protein 7.5 6.4-8.2 GM/DL Albumin 4.4 3.2-4.5 GM/DL TSH [facility] Testing 1.21 0.35-4.94 UIU/ML My Orders Orders - JAYME BERTRAND Troponin I (03/13/17 18:18) Chest 1 View, Ap/Pa Only (03/13/17 18:50) Vital Signs/I&O Vital Sign - Last 12Hours 03/13/17 18:19 Temp 98.1 Pulse 60 Resp 14 B/P (MAP) 174/92 (119) Pulse Ox 99 Blood Pressure Mean: 119 Progress Note : Time: 18:45 Progress Note Patient had an echocardiogram less than a year ago but after his symptoms began. We will hold off ordering an echo for the morning at this time. We'll discuss this with cardiology and the inpatient medical team. ECG Initial ECG Impression Date: Mar 13, 2017 Initial ECG Impression Time: 17:48 Initial ECG Rate: 68 Initial ECG Rhythm: Normal Sinus Initial ECG Intervals: NE (164) Initial ECG Impression: Normal Initial ECG Comparisson: Unchanged Comment No T-wave elevation or depression. No heart block noted. Review of telemetry panels sent by [employer] shows at 1606 and a second period of asystole with good P waves that spontaneously resumed a normal sinus pattern and leading up to and afterwards normal NE intervals of about 180 ms max. Diagnostic Imaging Diagonstic Imaging: Xray Plain Films/CT/US/NM/MRI: chest (1v) Comments Unremarkable chest 1 view. NAME: ELTON FOWLER [facility] REC#: [id number] PHYSICIAN: JAYME BERTRAND MD CC: SALINAS MYLES; JAYME BERTRAND Page 1 of 1 RADIOLOGY REPORT VIA [place], [place] CC: SALINAS MYLES; JAYME BERTRAND Page 1 of 1 RADIOLOGY REPORT NAME: ELTON FOWLER MED REC#: [id number] PT STATUS: ADM IN : 1960 PHYSICIAN: JAYME BERTRAND MD ADMIT DATE: 03/13/17/ICU Signed Date of Exam: 03/13/17 CHEST 1 VIEW, AP/PA ONLY INDICATION: Syncope and shortness of air. FINDINGS: The heart size and configuration normal. The vascular structures nondilated. The lungs clear. No edema, pneumonia, effusion or pneumothorax. There has been no change from study dated 07/03/2016. IMPRESSION: Stable negative chest. Dictated by: Dictated on workstation # [id number] Dict: 03/13/171912 Trans: 03/13/171953 Interpreted by: SALINAS MYLES Electronically signed by: SALINAS MYLES 03/13/171953 Reviewed: Reviewed by Me Departure Communication (Admissions) Time/Spoke to Admitting Phy: 18:30 Communication Discussed the case lab imaging and findings with Dr. Perez. She would like the patient in the ICU and she'll see the patient. Time/Spoke to Consulting Phy: 18:25 Communication/Consulting Discussed case lab imaging findings and EKG with Dr. Ugarte; he would like us to consult Dr. Olmedo as well but he will stay on the case for electrophysiology consultation. He'll see the patient in the morning. He would like atropine at the bedside. Impression Impression: Primary Impression: Complete heart block by electrocardiogram Disposition: ADMITTED INPATIENT Condition: Stable Admissions Decision to Admit Reason: Admit from ER (General) Decision to Admit/Date: Mar 13, 2017 Time/Decision to Admit Time: 18:48 Departure-Patient Inst. Referrals: ARUNA MOELLER MD (PCP/Family) Primary Care Physician Copy Copies To 1: DANIEL PEREZ DO; ARUNA MOELLER MD Copies To 2: Naima UGARTE MD; JOSE DE JESUS OLMEDO MD, TITUS J Mar 13, 2017 18:39
--- NOTE | 2017-03-13 19:19 | Diagnostic Imaging Report ---
INDICATION: Syncope and shortness of air. FINDINGS: The heart size and configuration normal. The vascular structures nondilated. The lungs clear. No edema, pneumonia, effusion or pneumothorax. There has been no change from study dated 07/03/2016. IMPRESSION: Stable negative chest. Dictated by: Dictated on workstation # [id number]
--- OUTSIDE RECORDS SUMMARY | 2017-03-13 19:37 | XMS REPORT | Continuity of Care Document ---
Author Author [employer] Organization [place] Address Unknown Phone Unavailable Care Team Providers Care Supervising Fire Marshal Name Role Phone [employer] Unavailable Unavailable Problems Medications Allergies, Adverse Reactions, Alerts Immunizations Results Vital Signs Encounters Procedures Plan of Care Social History Assessment and Plan Family History Value Date Source Advance Directives Order Name Results Value Date Source
--- OUTSIDE RECORDS SUMMARY | 2017-03-13 19:38 | XMS REPORT | Continuity of Care Document ---
Author Author [facility] Organization [facility] Address Unknown Phone Unavailable Allergies Active Description Code Type Severity Reaction Onset Reported/Identified Relationship to Patient Clinical Status Yes No Known Drug Allergies [id number] Drug Allergy Unknown N/A 12/24/2010 Medications There [...] SAJAN MCDOWELL, ARUNA L Ot R10.12 04/05/2015 SAJNA MCDOWELL, ARUNA L Ot R10.32 04/11/2015 SAJAN [...] LEFT LOWER QUADRANT PAIN 09/27/2015 ANISHA DEY MARINA MANAGER Ot R07.89 OTHER CHEST PAIN 09/28/2015 SAJAN MCDOWELL, ARUNA L Ot R10.12 LEFT UPPER QUADRANT PAIN 09/28/2015 SAJAN MCDOWELL, ARUNA L Ot R10.32 LEFT LOWER QUADRANT PAIN 10/11/2015 ANISHA DEY MARINA MANAGER Ot R07.89 OTHER CHEST PAIN 10/12/2015 ANISHA DEY MARINA MANAGER Ot R07.89 OTHER CHEST PAIN 11/01/2015 Ot V01.5 RABIES CONTACT 11/01/2015 ANISHA DEY [facility] Ot R07.89 OTHER CHEST PAIN [...] LEFT LOWER QUADRANT PAIN 04/02/2016 ANISHA DEY [facility] Ot R07.89 OTHER CHEST PAIN [...] Ot V01.5 RABIES CONTACT 04/23/2016 ANISHA DEY [facility] Ot R07.89 OTHER CHEST PAIN [...] MD Ot I25.10 ATHSCL HEART DISEASE OF [place] CORONARY 07/03/2016 JOSE DE JESUS SPEAR MD [...] DE JESUS SPEAR MD Ot Z79.899 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 07/03/2016 JOSE DE JESUS [...] MD Ot I25.10 ATHSCL HEART DISEASE OF [place] CORONARY 07/22/2016 JOSE DE JESUS SPEAR MD [...] DE JESUS SPEAR MD Ot Z79.899 OTHER CORRECTION (CURRENT) DRUG THERAPY 07/22/2016 JOSE DE JESUS SPEAR MD Ot Z87.891 PERSONAL HISTORY OF NICOTINE DEPENDENCE 07/24/2016 JOSE DE JESUS SPEAR MD Ot E66.9 OBESITY, UNSPECIFIED 07/24/2016 JOSE DE JESUS SPEAR MD Ot E78.1 PURE HYPERGLYCERIDEMIA 07/24/2016 JOSE DE JESUS SPEAR MD Ot I11.9 HYPERTENSIVE HEART DISEASE WITHOUT HEART 07/24/2016 JOSE DE JESUS SPEAR MD Ot I25.10 ATHSCL HEART DISEASE OF [place] CORONARY 07/24/2016 JOSE DE JESUS SPEAR MD [...] DE JESUS SPEAR MD Ot Z79.899 OTHER CORRECTION (CURRENT) DRUG THERAPY 07/24/2016 JOSE DE JESUS [...] 98.7 ng/mL 10.0-92.0 Erythrocyte sedimentation rate by rodeoergren method - 04/23/16 19:56 Erythrocyte sedimentation rate [...] NEGATIVE NEGATIVE Urine propoxyphene detection NEGATIVE NEGATIVE Complete blood count (CBC) with automated white blood cell (WBC) differential - 03/13/17 18:00 Blood leukocytes automated count (number/volume) 6.9 10*3/uL 4.3-11.0 Blood erythrocytes automated count (number/volume) 4.47 10*6/uL 4.35-5.85 Venous blood hemoglobin measurement (mass/volume) 14.5 g/dL 13.3-17.7 Blood hematocrit (volume fraction) 41 % 40-54 Automated erythrocyte mean corpuscular volume 92 [foz_us] 80-99 Automated erythrocyte mean corpuscular hemoglobin (mass per erythrocyte) 32 pg 25-34 Automated erythrocyte mean corpuscular hemoglobin concentration measurement ( mass/volume) 35 g/dL 32-36 Automated erythrocyte distribution width ratio 12.1 % 10.0-14.5 Automated blood platelet count (count/volume) 164 10*3/uL 130-400 Automated blood platelet mean volume measurement 12.5 [foz_us] 7.4-10.4 Automated blood neutrophils/100 leukocytes 57 % 42-75 Automated blood lymphocytes/100 leukocytes 29 % 12-44 Blood monocytes/100 leukocytes 8 % 0-12 Automated blood eosinophils/100 leukocytes 5 % 0-10 Automated blood basophils/100 leukocytes 0 % 0-10 Blood neutrophils automated count (number/volume) 3.9 10*3 1.8-7.8 Blood lymphocytes automated count (number/volume) 2.0 10*3 1.0-4.0 Blood monocytes automated count (number/volume) 0.6 10*3 0.0-1.0 Automated eosinophil count 0.4 10*3/uL 0.0-0.3 Automated blood basophil count (count/volume) 0.0 10*3/uL 0.0-0.1 Comprehensive metabolic panel - 03/13/17 18:00 Serum or plasma sodium measurement (moles/volume) 136 mmol/L 135-145 Serum or plasma potassium measurement (moles/volume) 4.1 mmol/L 3.6-5.0 Serum or plasma chloride measurement (moles/volume) 101 mmol/L 98-107 Carbon dioxide 24 mmol/L 21-32 Serum or plasma anion gap determination (moles/volume) 11 mmol/L 5-14 Serum or plasma urea nitrogen measurement (mass/volume) 13 mg/dL 7-18 Serum or plasma creatinine measurement (mass/volume) 1.05 mg/dL 0.60-1.30 Serum or plasma urea nitrogen/creatinine mass ratio 12 NRG Serum or plasma creatinine measurement with calculation of estimated glomerular filtration rate > NRG Serum or plasma glucose measurement (mass/volume) 154 mg/dL 70-105 Serum or plasma calcium measurement (mass/volume) 9.3 mg/dL 8.5-10.1 Serum or plasma total bilirubin measurement (mass/volume) 0.8 mg/dL 0.1-1.0 Serum or plasma alkaline phosphatase measurement (enzymatic activity/volume) 53 U/L 40-136 Serum or plasma aspartate aminotransferase measurement (enzymatic activity/ volume) 35 U/L 5-34 Serum or plasma alanine aminotransferase measurement (enzymatic activity/volume ) 48 U/L 0-55 Serum or plasma protein measurement (mass/volume) 7.5 g/dL 6.4-8.2 Serum or plasma albumin measurement (mass/volume) 4.4 g/dL 3.2-4.5 Magnesium - 03/13/17 18:00 Magnesium 2.4 mg/dL 1.8-2.4 Serum or plasma thyrotropin measurement by detection limit <=0.05 miu/l (units/ volume) - 03/13/17 18:00 Serum or plasma thyrotropin measurement by detection limit <=0.05 miu/l (units/ volume) 1.21 u[iU]/mL 0.35-4.94 Serum or plasma troponin i.cardiac measurement (mass/volume) - 03/13/17 18:00 Serum or plasma troponin i.cardiac measurement (mass/volume) < ng/ mL <0.30 Encounters ACCT No. Visit Date/Time Discharge Status Pt. Type Provider Facility Loc./Unit Complaint [id number] 03/05/2017 10:02:00 03/05/2017 23:59:59 CLS Outpatient JOSE DE JESUS SPEAR MD [facility] CARD R00.1 [id number] 02/10/2017 09:30:00 02/10/2017 23:59:59 CLS Preadmit JOSE DE JESUS SPEAR MD [facility] BRADYCARDIA,DIZZINESS [id number] 12/31/2016 15:11:00 12/31/2016 23:59:59 CLS Outpatient AMADO WALTER APRN [facility] RAD COPD,LEG SWELLING [id number] 12/27/2016 12:00:00 12/27/2016 23:59:59 CLS Preadmit JOSE DE JESUS SPEAR MD [facility] CARD CHEST PAIN SYNDROME [id number] 09/27/2016 13:36:00 12/26/2016 00:01:00 DIS Outpatient JOSE DE JESUS SPEAR MD [facility] CARD CHEST PAIN SYNDROME [id number] 12/16/2016 14:39:00 12/16/2016 23:59:59 CLS Outpatient AMADO WALTER APRN [facility] RAD R06.00 [id number] 12/13/2016 09:45:00 12/13/2016 23:59:59 CLS Preadmit SABA, AMADO E SADDLE MAKER [facility] RT R06.00 [id number] 10/28/2016 08:15:00 10/28/2016 23:59:59 CLS Preadmit SABA, AMADO E SADDLE MAKER [facility] RT DYSPNEA R06.00 [id number] 10/25/2016 10:15:00 10/25/2016 23:59:59 CLS Preadmit SABA, AAMDO E SADDLE MAKER [facility] RAD LEG SWELLING [id number] 10/16/2016 17:09:00 10/16/2016 20:26:00 DIS Emergency TRISH WINSTON MD [facility] ER SOB [id number] 10/09/2016 06:57:00 10/09/2016 23:59:59 CLS Outpatient ARUNA MOELLER MD [facility] RT SOB [id number] 09/06/2016 15:12:00 09/06/2016 23:59:59 CLS Outpatient JOSE DE JESUS SPEAR MD [facility] RAD ABD PAIN R10.9 [id number] 07/24/2016 21:02:00 07/25/2016 07:00:00 DIS Outpatient JOSE DE JESUS SPEAR MD [facility] SLEEP LEO,HTN,MORNING HEADACHE [id number] 07/18/2016 08:12:00 07/18/2016 23:59:59 CLS Outpatient JOSE DE JESUS SPEAR MD [facility] CARD CHEST PAIN SYNDROME,HTN, MR [id number] 07/03/2016 07:52:00 07/03/2016 15:55:00 DIS Outpatient JOSE DE JESUS SPEAR MD [facility] CATH CP,HTN,CAD [id number] 04/23/2016 22:37:00 04/24/2016 14:05:00 DIS Inpatient JOSE DE JESUS SPEAR MD [facility] ICU CHEST PAIN,HYPERTENSION [id number] 04/02/2016 10:45:00 04/02/2016 23:59:59 CLS Outpatient ARUNA MOELLER MD [facility] RAD AMS, HTN [id number] 09/26/2015 10:24:00 09/26/2015 23:59:59 CLS Outpatient ANISHA DEY [facility] RAD CHEST PAIN [id number] 01/06/2015 10:02:00 01/06/2015 23:59:59 CLS Outpatient ARUNA MOELLER MD [facility] RAD LUQ, LLUQ PAIN [id number] 07/26/2012 08:55:00 10/13/2012 00:01:00 DIS Outpatient VINH MCDOWELL, BEST Phillip [facility] SDC DOG BITE ON 07/11 [id number] 03/13/2017 19:33:00 ACT Inpatient DANIEL PEREZ DO [facility] ICU INTERMITTENT COMPLETE HEART BLOCK [id number] 01/06/2015 10:00:00 Document Registration [id number] 10/14/2012 00:00:00 Document Registration [id number] 07/11/2012 20:08:00 Document Registration [id number] 03/11/2012 07:18:00 Document Registration [id number] 02/05/2012 15:51:00 Document Registration [id number] 11/21/2011 15:51:00 Document Registration [id number] 01/23/2011 14:06:00 Document Registration [id number] 12/24/2010 11:34:00 Document Registration
[2017-03-13 20:33] VITALS: BP 148/88
[2017-03-13 21:00] VITALS: BP 128/77
[2017-03-13 22:00] VITALS: BP 155/104
[2017-03-13] MEDS ORDERED: ATROPINE INJECTION 1 MG/10 ML SYR (ABBOTT) ONE (22:09)
[2017-03-13 23:00] VITALS: BP 170/108
[2017-03-14] VITALS (16 sets, daily range): BP systolic 110–152; BP diastolic 61–99
[2017-03-14] MEDS: ATROPINE INJ PRN ×2 (01:52→05:12)
[2017-03-14] MEDS ORDERED: ATROPINE INJECTION 1 MG/10 ML SYR (ABBOTT) ONE (05:06)
[2017-03-14 05:36] LABS: BASOPHILS % (AUTO) 0 % (0-10); EOSINOPHILS # (AUTO) 0.3 10^3/uL (0.0-0.3); EOSINOPHILS % (AUTO) 5 % (0-10); LYMPHOCYTES # (AUTO) 2.1 X 10^3 (1.0-4.0); LYMPHOCYTES % (AUTO) 34 % (12-44); MEAN CORPUSCULAR HEMOGLOBIN 32 PG (25-34); MEAN CORPUSCULAR HGB CONC 34 G/DL (32-36); MEAN CORPUSCULAR VOLUME 93 FL (80-99); MEAN PLATELET VOLUME 12.3 FL (7.4-10.4); MONOCYTES # (AUTO) 0.6 X 10^3 (0.0-1.0); MONOCYTES % (AUTO) 10 % (0-12); NEUTROPHILS # (AUTO) 3.2 X 10^3 (1.8-7.8); NEUTROPHILS % (AUTO) 51 % (42-75); PLATELET COUNT 144 10^3/uL (130-400); RED BLOOD COUNT 4.35 10^6/uL (4.35-5.85); RED CELL DISTRIBUTION WIDTH 12.1 % (10.0-14.5); WHITE BLOOD COUNT 6.2 10^3/uL (4.3-11.0)
[2017-03-14 06:06] LABS: ANION GAP 13 MMOL/L (5-14); BLOOD UREA NITROGEN 12 MG/DL (7-18); BUN/CREATININE RATIO 14; CARBON DIOXIDE 23 MMOL/L (21-32); CHLORIDE 105 MMOL/L (98-107); CREATININE SERUM 0.84 MG/DL (0.60-1.30); GFR ESTIMATED > 60; GLUCOSE 128 MG/DL (70-105); MAGNESIUM 2.2 MG/DL (1.8-2.4); POTASSIUM 3.6 MMOL/L (3.6-5.0); SODIUM 141 MMOL/L (135-145)
[2017-03-14 06:14] LABS: TROPONIN I < 0.30 NG/ML (<0.30)
--- NOTE | 2017-03-14 06:24 | Pulmonary Consultation ---
History of Present Illness History of Present Illness Date of Consultation 03/14/17 06:19 Time Seen by Provider: 06:19 Date of Admission History of Present Illness 57yo with LEO presented secondary to chest "fluttering" and presyncope. Onset was 14months ago and has had an out patient cardiac workup. He was placed on Holter monitor and was called by monitoring company secondary to 7-8 sec of asystole. I am consulted for ICU management. Allergies and Home Medications Allergies Coded Allergies: No Known Drug Allergies (Unverified , 12/24/10) Home Medications Cholecalciferol (Vitamin D3) 1,000 Unit Capsule, 1,000 UNIT PO DAILY, (Reported) Diazepam 5 Mg Tablet, 5 MG PO, (Reported) Esomeprazole Magnesium 20 Mg Tablet.dr, 20 MG PO DAILY, (Reported) Multivitamin 1 Each Tablet, 1 EACH PO DAILY, (Reported) Valsartan/Hydrochlorothiazide 1 Each Tablet, 1 EACH PO DAILY, #30 Prescribed by: MALLORY GARZA on 07/03/16 1224 Past Wjfwctt-Qroohf-Zvbxpu Hx Patient Social History Alcohol Use: Occasionally Uses Number of Drinks Today: 0 Alcohol Beverage of Choice: Beer, Rum Recreational Drug Use: No Smoking Status: Never a Smoker Type Used: Smokeless Tobacco Former Smoker, Quit: Mar 13, 2003 Recent Foreign Travel: No Contact w/Someone Who Travel: No Recent Infectious Disease Expo: No Recent Hopitalizations: No Physical Abuse: No Sexual Abuse: No Mistreated: No Fear: No Immunizations Up To Date Tetanus Booster (TDap): Unknown PED Vaccines UTD: No Seasonal Allergies Seasonal Allergies: Yes Surgeries History of Surgeries: Yes (ACL bilat knees, hernia repair) Surgeries: Abdominal, Orthopedic Respiratory History of Respiratory Disorde: Yes Respiratory Disorders: Sleep Apnea Currently Using CPAP: Yes Cardiovascular History of Cardiac Disorders: Yes (near syncopal episodes) Cardiac Disorders: Hypertension Neurological History of Neurological Disord: No Reproductive System Hx Reproductive Disorders: No Sexually Transmitted Disease: No HIV/AIDS: No Genitourinary History of Genitourinary Disor: No Gastrointestinal History of Gastrointestinal Di: Yes Gastrointestinal Disorders: Gastroesophageal Reflux Musculoskeletal History of Musculoskeletal Dis: No Endocrine History of Endocrine Disorders: No HEENT History of HEENT Disorders: No Cancer History of Cancer: No Psychosocial History of Psychiatric Problem: No Suicide Risk Score: 0 Integumentary History of Skin or Integumenta: No Blood Transfusions History of Blood Disorders: No Family Medical History Significant Family History: CAD Over 55 Years Old Family Medial History: Abdominal aortic aneurysm 19 MOTHER, , Age:62, Onset:60 years & older Myocardial infarction 19 FATHER, , Age:61, Onset:60 years & older Review of Systems Time Seen by Provider: 06:38 Exam Exam Vital Signs Date Time Temp Pulse Resp B/P (MAP) Pulse Ox O2 Delivery O2 Flow Rate FiO2 03/14/17 06:00 63 11 134/96 (109) 94 Room Air 03/14/17 05:00 44 23 139/77 (97) 96 Room Air 03/14/17 04:00 96 Room Air 03/14/17 04:00 48 9 134/79 (97) 96 Room Air 03/14/17 03:00 52 24 138/83 (101) 95 Room Air 03/14/17 02:00 73 28 151/99 (116) 97 Room Air 03/14/17 01:00 47 28 135/81 (99) 97 Room Air 03/14/17 01:00 46 03/14/17 00:00 96 Room Air 03/14/17 00:00 97.7 53 8 132/85 (101) 98 Room Air 03/13/17 23:00 74 12 170/108 (128) 98 Room Air 03/13/17 22:00 65 23 155/104 (121) 96 Room Air 03/13/17 21:00 51 25 128/77 (94) 95 Room Air 03/13/17 20:42 55 03/13/17 20:33 98.6 53 14 148/88 (108) 97 Room Air 03/13/17 20:30 Room Air 03/13/17 20:30 98.1 55 14 96 03/13/17 18:19 98.1 60 14 174/92 (119) 99 I & O 03/14/17 07:00 Intake Total 1190 ml Output Total 800 ml Balance 390 ml General Appearance: No Apparent Distress, WD/WN, Anxious HEENT: PERRL/EOMI, Pharynx Normal Neck: Normal Inspection, Non Tender, Supple Respiratory: Chest Non Tender, Lungs Clear, Normal Breath Sounds Cardiovascular: Regular Rate, Rhythm, No Edema, No Gallop, No JVD, No Murmur, Normal Peripheral Pulses Capillary Refill: Less Than 3 Seconds Extremity: Normal Capillary Refill, Normal Inspection, No Pedal Edema Neurologic/Psychiatric: Alert, Oriented x3 Skin: Normal Color, Warm/Dry Results Lab Laboratory Tests 03/13/17 18:00 03/14/17 04:35 Assessment/Plan Assessment/Plan Sinus bradycardia with episodes of complete heart block -Pt has received 0.5mg of atropine x 2 secondary to bradycardia around 46. -Cardiology is following Diastolic dysfunction with EF of 60% LEO -PT has CPAP of 12 ordered 254 Clinical Quality Measures DVT/VTE Risk/Contraindication: Risk Factor Score Per Nursin RFS Level Per Nursing on Admit: 2=Moderate JANNA PARSONS DO Mar 14, 2017 06:24
[2017-03-14] MEDS ORDERED: INFLUENZA TRIvalent 2017-2018 0.5 ML/45 MCG SYR IM ONE (07:30)
[2017-03-14] MEDS ORDERED: ESOM20TA PO (08:18)
[2017-03-14] MEDS ORDERED: VALS320T14 PO (08:18)
[2017-03-14] MEDS ORDERED: BETA15CR4 TOP (08:18)
--- NOTE | 2017-03-14 08:38 | Diagnostic Imaging Report ---
EXAMINATION: Portable upright radiograph of the chest. INDICATION: Dyspnea. COMPARISON: 03/13/2017. FINDINGS: The lungs are clear. The heart size is normal. No effusion or pneumothorax. The mediastinum and shaila appear unremarkable. IMPRESSION: Unremarkable exam. Dictated by: Dictated on workstation # [id number]
[2017-03-14] MEDS: NS IV 1000 ML 1,000 ML IV SCH ×2 (08:54→15:22)
[2017-03-14] MEDS ORDERED: HEParin (CATH LAB) 1,000 ML IV ONE (09:06)
[2017-03-14] MEDS ORDERED: LIDOCAINE 1% INJ 50 ML (XYLOCAINE) VIAL ONE (09:06)
[2017-03-14] MEDS ORDERED: ceFAZolin 1,000 MG (ANCEF) VIAL IV NR (09:15)
[2017-03-14] MEDS ORDERED: BACITRACIN INJECTION 50,000 UNIT, SODIUM CHLORIDE 0.9% IRRIGATIO 500 ML IR SCH ×2 (09:18)
[2017-03-14] MEDS ORDERED: ACETAMINOPHEN 650 MG SUPP (TYLENOL) PR PRN (10:15)
--- NOTE | 2017-03-14 11:33 | History & Physical-Hospitalist ---
HPI History of Present Illness: HPI/Chief Complaint CC: Complete heart block HPI: This is a 57 yoWM pt that presented to ER after Holter monitor alarmed with arrhythmia. Pt has hx of syncope for the past 13 months and Holter monitor for the past [address] Olmedo is the pt's print traffic manager manufacturing tech: Pacemaker to be placed for complete heart block Patient Interview: Pt states that he has been better and now knows why he has been passing out. Pt is thankful for the heart monitor. Pt confirms Dr. Olmedo as print traffic manager. Pt discussed his cardiac hx and states when he had a cath was done, everything was clear. 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 Pt confirms having the Holter monitor on for 8 days and states he had a 48 hour one over the summer that did not show anything Pt confirm CPAP usage at night. Pt confirms PCP as Dr. Escudero, but wants to change to [facility] Physical exam stable. Pt denies current pain Pt states that in early afternoon his pacemaker will be placed. I informed the pt that usually, pts wait a day to DC home after this procedure Scribed by Margie Beverly under direct supervision of Dr. Poly Perez. 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) Alcohol Use: Occasionally Uses Number of Drinks Today: 0 Alcohol Beverage of Choice: Beer, Rum Recreational Drug Use: No Smoking Status: Never a Smoker Former Smoker, Quit: Mar 13, 2003 Type Used: Smokeless Tobacco Physical Abuse Screen: No Sexual Abuse: No Recent Foreign Travel: No Contact w/other who traveled: No Recent Hopitalizations: No Recent Infectious Disease Expo: No Immunizations Up To Date Tetanus Booster (TDap): Unknown Pediatric: No Seasonal Allergies Seasonal Allergies: Yes Surgeries Yes (ACL bilat knees, hernia repair) Abdominal, Orthopedic Respiratory Yes Sleep Apnea Currently Using CPAP: Yes Cardiovascular Yes (near syncopal episodes) High Cholesterol, Hypertension Neurological No Reproductive System Hx Reproductive Disorders: No Sexually Transmitted Disease: No HIV/AIDS: No Genitourinary No Gastrointestinal Yes Gastroesophageal Reflux Musculoskeletal No Endocrine History of Endocrine Disorders: No HEENT History of HEENT Disorders: No Cancer No Psychosocial History of Psychiatric Problem: No Integumentary History of Skin or Integumenta: No Blood Transfusions History of Blood Disorders: No Family Medical History Significant Family History: CAD Over 55 Years Old Family Hx: Abdominal aortic aneurysm 19 MOTHER, , Age:62, Onset:60 years & older Myocardial infarction 19 FATHER, , Age:61, Onset:60 years & older Review of Systems Constitutional: see HPI, dizziness EENTM: no symptoms reported Respiratory: no symptoms reported Cardiovascular: no symptoms reported Gastrointestinal: no symptoms reported Genitourinary: no symptoms reported Musculoskeletal: no symptoms reported Skin: no symptoms reported Psychiatric/Neurological: Other (syncope) Physical Exam Physical Exam Vital Signs Vital Sign - Last 12Hours 03/13/17 03/13/17 18:19 20:30 Temp 98.1 Pulse 60 Resp 14 B/P (MAP) 174/92 (119) Pulse Ox 99 O2 Delivery Room Air Capillary Refill : Less Than 3 Seconds General Appearance: No Apparent Distress, WD/WN, Chronically ill, Obese Eyes: Bilateral Eye Normal Inspection, Bilateral Eye PERRL HEENT: PERRL/EOMI, Normal ENT Inspection, Pharynx Normal Neck: Full Range of Motion, Normal Inspection, Non Tender, Supple, Carotid Bruit Respiratory: Chest Non Tender, Lungs Clear, Normal Breath Sounds, No Accessory Muscle Use, No Respiratory Distress Cardiovascular: Regular Rate, Rhythm, No Edema, No Gallop, No JVD, No Murmur, Normal Peripheral Pulses Gastrointestinal: Normal Bowel Sounds, No Organomegaly, No Pulsatile Mass, Non Tender, Soft Back: Normal Inspection, No CVA Tenderness, No Vertebral Tenderness Extremity: Normal Capillary Refill, Normal Inspection, Normal Range of Motion, Non Tender, No Calf Tenderness, No Pedal Edema Neurologic/Psychiatric: Alert, Oriented x3, No Motor/Sensory Deficits, Normal Mood/Affect Skin: Normal Color, Warm/Dry Lymphatic: No Adenopathy Results Results/Procedures Lab Laboratory Tests 03/13/17 18:00 03/14/17 04:35 Assessment/Plan Admission Diagnosis Assessment: Complete heart block with syncope in need of pacemaker today LEO HTN HLP Assessment and Plan Plan: Pacemaker Monitor pt Maintain CPAP Home meds Clinical Quality Measures DVT/VTE Risk/Contraindication: Risk Factor Score Per Nursin RFS Level Per Nursing on Admit: 2=Moderate POLY PEREZ DO Mar 14, 2017 11:33
[2017-03-14] MEDS ORDERED: MIDAZOLAM 5 MG/5 ML (VERSED) VIAL ONE (11:46)
[2017-03-14] MEDS ORDERED: fentaNYL INJECTION 100 MCG/2 ML AMP ONE (11:46)
[2017-03-14] MEDS ORDERED: NS (IVPB) 50 ML ONE (11:49)
[2017-03-14] MEDS ORDERED: CATHETER FLUSH 10 ML SYR IV PRN (12:00)
--- NOTE | 2017-03-14 12:16 | Consultation-Cardiology ---
HPI-Cardiology Cardiology Consultation Date of Consultation 03/14/17 Date of Admission Time Seen by Provider: 08:00 Indication: Syncope HPI 57 years old gentleman with extensive history of dizziness and lightheadedness and near syncope, sick sinus syndrome and bradycardia. Underwent extensive workup without identifying the cause of his symptoms. Yesterday while he was at [facility] he had an episode of near-syncope felt extremely flushed and lightheaded then became pale. He went home and he had an event recorder, he was contacted due to prolonged positive up to 8 seconds with complete heart block. He was called to be admitted to the hospital, has been bradycardic since but feeling better. Not taking any medication that affect the heart rate. 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) Alcohol Use: Occasionally Uses Recreational Drug Use: No Smoking Status: Never a Smoker Type Used: Smokeless Tobacco Recent Foreign Travel: No Recent Infectious Disease Expo: No Recent Hopitalizations: No Physical Abuse Screen: No Sexual Abuse: No Immunizations Up To Date Tetanus Booster (TDap): Unknown Past Medical History past medical history as discussed below Family Medical History Significant Family History: CAD Over 55 Years Old Family History: Abdominal aortic aneurysm 19 MOTHER, , Age:62, Onset:60 years & older Myocardial infarction 19 FATHER, , Age:61, Onset:60 years & older Constitutional: see HPI, dizziness, weakness EENTM: see HPI Respiratory: see HPI, No cough, No dyspnea on exertion, No hemoptysis, No orthopnea, No phlegm, No short of breath, No stridor, No wheezing, No other Cardiovascular: see HPI, No chest pain, No edema, No Hx of Intervention, No palpitations, syncope, No vascular heart diseas, No other Gastrointestinal: no symptoms reported, see HPI Genitourinary: no symptoms reported, see HPI Musculoskeletal: no symptoms reported, see HPI Skin: no symptoms reported, see HPI Psychiatric/Neurological: No Symptoms Reported, See HPI Reviewed Test Results Reviewed Test Results Lab Laboratory Tests Test 03/13/17 18:00 03/14/17 00:30 03/14/17 04:35 Range/Units White Blood Count 6.9 6.2 4.3-11.0 10^3/uL Red Blood Count 4.47 4.35 4.35-5.85 10^6/uL Hemoglobin 14.5 13.9 13.3-17.7 G/DL Hematocrit 41 40 40-54 % Mean Corpuscular Volume 92 93 80-99 FL Mean Corpuscular Hemoglobin 32 32 25-34 PG Mean Corpuscular Hemoglobin Concent 35 34 32-36 G/DL Red Cell Distribution Width 12.1 12.1 10.0-14.5 % Platelet Count 164 144 130-400 10^3/uL Mean Platelet Volume 12.5 H 12.3 H 7.4-10.4 FL Neutrophils (%) (Auto) 57 51 42-75 % Lymphocytes (%) (Auto) 29 34 12-44 % Monocytes (%) (Auto) 8 10 0-12 % Eosinophils (%) (Auto) 5 5 0-10 % Basophils (%) (Auto) 0 0 0-10 % Neutrophils # (Auto) 3.9 3.2 1.8-7.8 X 10^3 Lymphocytes # (Auto) 2.0 2.1 1.0-4.0 X 10^3 Monocytes # (Auto) 0.6 0.6 0.0-1.0 X 10^3 Eosinophils # (Auto) 0.4 H 0.3 0.0-0.3 10^3/uL Basophils # (Auto) 0.0 0.0 0.0-0.1 10^3/uL Sodium Level 136 141 135-145 MMOL/L Potassium Level 4.1 3.6 3.6-5.0 MMOL/L Chloride Level 101 105 98-107 MMOL/L Carbon Dioxide Level 24 23 21-32 MMOL/L Anion Gap 11 13 5-14 MMOL/L Blood Urea Nitrogen 13 12 7-18 MG/DL Creatinine 1.05 0.84 0.60-1.30 MG/DL Estimat Glomerular Filtration Rate > 60 > 60 BUN/Creatinine Ratio 12 14 Glucose Level 154 H 128 H 70-105 MG/DL Calcium Level 9.3 9.0 8.5-10.1 MG/DL Magnesium Level 2.4 2.2 1.8-2.4 MG/DL Total Bilirubin 0.8 0.1-1.0 MG/DL Aspartate Amino Transf (AST/SGOT) 35 H 5-34 U/L Alanine Aminotransferase (ALT/SGPT) 48 0-55 U/L Alkaline Phosphatase 53 40-136 U/L Troponin I < 0.30 < 0.30 < 0.30 <0.30 NG/ML Total Protein 7.5 6.4-8.2 GM/DL Albumin 4.4 3.2-4.5 GM/DL TSH [facility] Testing 1.21 0.35-4.94 UIU/ML Phosphorus Level 4.0 2.3-4.7 MG/DL Physical Exam Vital Signs Vital Sign - Last 12Hours 03/13/17 03/13/17 18:19 20:30 Temp 98.1 Pulse 60 Resp 14 B/P (MAP) 174/92 (119) Pulse Ox 99 O2 Delivery Room Air Capillary Refill : Less Than 3 Seconds General Appearance: No Apparent Distress, WD/WN Eyes: Bilateral Eye Normal Inspection, Bilateral Eye PERRL, Bilateral Eye EOMI HEENT: PERRL/EOMI, TMs Normal, Normal ENT Inspection, Pharynx Normal Neck: Full Range of Motion, Normal Inspection, Non Tender, Supple, Carotid Bruit Respiratory: Chest Non Tender, Lungs Clear, Normal Breath Sounds, No Accessory Muscle Use, No Respiratory Distress Cardiovascular: Regular Rate, Rhythm, No Edema, No Gallop, No JVD, No Murmur, Normal Peripheral Pulses Gastrointestinal: Normal Bowel Sounds, No Organomegaly, No Pulsatile Mass, Non Tender, Soft Back: Normal Inspection, No CVA Tenderness, No Vertebral Tenderness Extremity: Normal Capillary Refill, Normal Inspection, Normal Range of Motion, Non Tender, No Calf Tenderness, No Pedal Edema Neurologic/Psychiatric: Alert, Oriented x3, No Motor/Sensory Deficits, Normal Mood/Affect Skin: Normal Color, Warm/Dry Lymphatic: No Adenopathy A/P-Cardiology Admission Diagnosis Syncope Complete heart block Sick sinus syndrome Coronary artery disease Assessment/Plan Complete heart block, near syncope, sick sinus syndrome with bradycardia. Patient had documented 8 second on on event recorder, planning to proceed with dual-chamber pacemaker implantation. Chest pain occurred with the episode of near syncope again, nonspecific etiology , cardiac catheterization was done on July 03, 2016 showing slow flow in the coronary system, no significant obstructive disease. Continue to monitor Coronary artery disease status post cardiac catheterization which showed slow flow in the coronary system with no significant obstructive disease, small vessel disease. Right groin pain since cardiac catheterization July 03, 2016, ultrasound did not show any abnormality. Reporting improvement at this time. Dizziness and lightheadedness, fatigue, having sinus bradycardia with occasional episode of dizziness and lightheadedness. still having episodes of fatigue and loss of energy, the last Holter monitor showed episode of symptomatic sinus bradycardia around 9-10 a.m. with lightheadedness and fatigue. During stress test that was done in March 2016 he was able to exercise for 9 minutes on Shai protocol with minimal nondiagnostic EKG changes with normal echocardiographic images. seen by Dr Hannah, had event recorder done which showed transient complete heart Block patient was extremely symptomatically during the episode. Planning to proceed with dual-chamber pacemaker Sick sinus syndrome-patient having episodes of sinus bradycardia, in addition to complete heart block. Labile hypertension, renal angiogram showed normal kidney arteries. Having significant fatigue and labile blood pressure, has been off amlodipine and still having the episodes of dizziness and lightheadedness 24 hour urine collection, renin and aldosterone level reported to be normal, I will try to obtain copy of the results, had a tilt table test at [facility] also reported to be normal. Hyperlipidemia-more specifically hypertriglyceridemia, continue to monitor Generalized fatigue, loss of energy, multiple somatic complaints, TSH is normal , tickborne titer is negative, KEVIN is negative, Doppler of the lower except he was negative for DVT, CT angiogram of the chest was nondiagnostic, workup was done in September 2016. Obstructive sleep apnea, has been using C Pap machine, recommend he follow with Dr. Cervantes to check settings on his machine. Family history of heart disease Obesity, BMI 33, discussed diet and exercise for weight loss Clinical Quality Measures DVT/VTE Risk/Contraindication: Risk Factor Score Per Nursin RFS Level Per Nursing on Admit: 2=Moderate JOSE DE JESUS SPEAR MD Mar 14, 2017 12:16
--- NOTE | 2017-03-14 12:17 | Cardiac Procedure Note-CS/ASA ---
Pre-Procedure Note Pre-Op Procedure Note H&P Reviewed The H&P was reviewed, patient examined and no changes noted. Date H&P Reviewed: Mar 14, 2017 Time H&P Reviewed: 12:17 Conscious Sedation Pre-Proced Time Reviewed: 12:17 ASA Class: 3 Airway Mallampati Classification: (port gamble appropriate class) I. II. III, IV Lungs Heart ASA score ASA 1: a normal healthy patient ASA 2: a patient with a mild systemic disease (mid diabetes, controlled hypertension, obesity x ASA 3: a patient with a severe systemic disease that limits activity (angina , COPD, prior Myocardial infarction) ASA 4: a patient with an incapacitating disease that is a constant threat to life (CHF, renal failure) ASA 5: a moribund patient not expected to survive 24 hrs. (ruptured aneurysm) ASA 6: a declared brain patient whose organs are being harvested. For emergent operations, add the letter E after the classification Grade 3 Sedation Plan: Analgesia, Amnesia, Plan communicated to team members, Discussed options with patient/fam, Discussed risks with patient/fam Note The patient is an appropriate candidate to undergo the planned procedure, sedation, and anesthesia. The patient immediately re-assessed prior to indication. JOSE DE JESUS SPEAR MD Mar 14, 2017 12:17
[2017-03-14] MEDS ORDERED: NEO/POLY/BAC (NEOSPORIN) OINT 15 GM TUBE ONE (13:27)
[2017-03-14] MEDS ORDERED: NS IV 1000 ML 1,000 ML IV SCH (13:32)
[2017-03-14] MEDS ORDERED: PATIENT MAY USE OWN MEDS, ALL PO SCH (13:45)
--- NOTE | 2017-03-14 14:18 | Diagnostic Imaging Report ---
INDICATION: Post pacemaker placement. Comparison with 03/14/2017 at 8:40 a.m. FINDINGS: Pacemaker present on the left. Leads appear in good position in the right atrium and right ventricle. The lungs are well-aerated. No pneumothorax or pleural effusion. Heart is not enlarged. There are no infiltrates. IMPRESSION: Satisfactory post pacemaker portable chest. No complications are demonstrated. Dictated by: Dictated on workstation # [id number]
[2017-03-14] MEDS: ceFAZolin INJECTION 1,000 MG in NS (IVPB) 50 ML IV SCH (21:38)
--- NOTE | 2017-03-14 23:17 | OPERATIVE REPORT ---
DATE OF SERVICE: 03/14/2017 DUAL CHAMBER PACEMAKER IMPLANTATION: BRIEF HISTORY: The patient is a 57-year-old gentleman with history of dizziness and near syncope, had multiple episodes with severe bradycardia, sick sinus syndrome, had an episode of near syncope with a complete heart block and a pause for 8 seconds. He was called to go to the emergency room and he was symptomatic during the episode, admitted and scheduled for dual chamber pacemaker implantation. PROCEDURE NOTE: After explaining the procedure to the patient, all pros and cons were explained. All questions were answered. The left subclavian vein was accessed with two separate sticks. I placed sheath and two leads, using Medtronic leads, right ventricular lead with serial #[id number], advanced into the right ventricular apex. Good sensing and capture activity was noted. Then, an atrial lead using a Medtronic device with serial #[id number] advanced to the right atrial appendage, good sensing and capture activity. Then, the skin pocket was irrigated and I used a Rootdowntronic device Advisa MRI DR, serial #[id number] attached to the lead and placed in the pocket. Tested and showed good sensing and capture activity. At that point, skin pocket was closed. No complication noted. CONCLUSION: Successful dual chamber pacemaker implantation with no complication. Job ID: [id number] DocumentID: [id number] Dictated Date: 03/14/2017 13:51:14 Aquarium Specialist Date: 03/14/2017 22:38:19 Dictated By: JOSE DE JESUS SPEAR MD
[2017-03-15] VITALS: BP 140/98
[2017-03-15] MEDS: NS IV 1000 ML 1,000 ML IV SCH (03:59)
[2017-03-15] MEDS: ceFAZolin INJECTION 1,000 MG in NS (IVPB) 50 ML IV SCH ×2 (03:59→11:10)
[2017-03-15 04:00] VITALS: BP 147/94
[2017-03-15 04:03] LABS: MEAN PLATELET VOLUME 12.1 FL (7.4-10.4); RED BLOOD COUNT 4.51 10^6/uL (4.35-5.85); RED CELL DISTRIBUTION WIDTH 12.1 % (10.0-14.5); WHITE BLOOD COUNT 10.4 10^3/uL (4.3-11.0)
[2017-03-15 04:24] LABS: ALANINE AMINOTRANSFERASE 44 U/L (0-55); ALBUMIN 3.9 GM/DL (3.2-4.5); ANION GAP 11 MMOL/L (5-14); ASPARTATE AMINO TRANSFERASE 24 U/L (5-34); BILIRUBIN,TOTAL 1.1 MG/DL (0.1-1.0); BLOOD UREA NITROGEN 13 MG/DL (7-18); BUN/CREATININE RATIO 15; CALCIUM 8.8 MG/DL (8.5-10.1); CARBON DIOXIDE 23 MMOL/L (21-32); CHLORIDE 106 MMOL/L (98-107); CREATININE SERUM 0.86 MG/DL (0.60-1.30); GFR ESTIMATED > 60; GLUCOSE 123 MG/DL (70-105); MAGNESIUM 2.2 MG/DL (1.8-2.4); PHOSPHORUS 3.5 MG/DL (2.3-4.7); POTASSIUM 3.9 MMOL/L (3.6-5.0); SODIUM 140 MMOL/L (135-145); TOTAL PROTEIN 6.3 GM/DL (6.4-8.2)
[2017-03-15] MEDS ORDERED: PANTOPRAZOLE 20 MG TABLET (PROTONIX) PO SCH (07:00)
[2017-03-15 08:00] VITALS: BP 140/90
--- NOTE | 2017-03-15 08:21 | Diagnostic Imaging Report ---
INDICATION: Dyspnea. Portable chest shows normal heart size and vascularity. The lungs are clear. There is no effusion or pneumothorax. A pacemaker is present. IMPRESSION: No acute abnormality is seen with no change from 03/14/2017. Dictated by: Dictated on workstation # [id number]
[2017-03-15] MEDS ORDERED: VALSARTAN 160 MG (DIOVAN) TABLET PO SCH (09:00)
--- NOTE | 2017-03-15 09:30 | Progress Note-Hospitalist ---
Subjective HPI/CC On Admission Date Seen by Provider: Mar 15, 2017 Time Seen by Provider: 09:00 CC: Complete heart block HPI: This is a 57 yoWM pt that presented to ER after Holter monitor alarmed with arrhythmia. Pt has hx of syncope for the past 13 months and Holter monitor for the past [address] 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 Pt is thankful for the heart monitor. Pt confirms Dr. Olmedo as high rigger. Pt discussed his cardiac hx and states when he had a cath was done, everything was clear. 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 Pt confirms having the Holter monitor on for 8 days and states he had a 48 hour one over the summer that did not show anything Pt confirm CPAP usage at night. Pt confirms PCP as Dr. Escudero, but wants to change to [facility] Physical exam stable. Pt denies current pain Pt states that in early afternoon his pacemaker will be placed. I informed the pt that usually, pts wait a day to DC home after this procedure Scribed by Margie Beverly under direct supervision of Dr. Poly Brumfield. Subjective/Events-last exam patient had a dual-chamber pacemaker placed yesterday without complication. He says already he feels better and is very relieved to know what is been a problem for the last 18 months. He has not gotten up and walked around yet. He does have some minimal discomfort at the incision site. Objective Exam Vital Signs Vital Sign - Last 12Hours 03/13/17 03/13/17 18:19 20:30 Temp 98.1 Pulse 60 Resp 14 B/P (MAP) 174/92 (119) Pulse Ox 99 O2 Delivery Room Air Capillary Refill : Less Than 3 Seconds General Appearance: No Apparent Distress, WD/WN HEENT: Normal ENT Inspection Neck: Supple Respiratory: Lungs Clear, Normal Breath Sounds, No Accessory Muscle Use, No Respiratory Distress Cardiovascular: Regular Rate, Rhythm, No Gallop, No Murmur Gastrointestinal: No Organomegaly, Non Tender, Soft Extremity: Normal Range of Motion, Non Tender, No Calf Tenderness Neurologic/Psychiatric: Alert, Oriented x3, No Motor/Sensory Deficits, Normal Mood/Affect Skin: Normal Color, Warm/Dry Results/Procedures Lab Laboratory Tests 03/15/17 03:27 Assessment/Plan Assessment and Plan Assess & Plan/Chief Complaint 1. History of sick sinus syndrome, complete heart block with greater than 8 second pauses status post pacemaker placement without complication 2. hypertension on Diovan 3. Obstructive sleep apnea on CPAP 4. hyper glycemia with probable insulin resistance 5. Moderate obesity with a BMI of 33 plan is for discharge today with follow-up with cardiology and discharge medications per cardiology JOYCE BYRNE MD Mar 15, 2017 09:30
[2017-03-15] MEDS ORDERED: ATOR10TA PO (09:37)
[2017-03-15] MEDS ORDERED: CEPH-507 PO (11:53)
[2017-03-15] MEDS ORDERED: METO-387 PO (11:53)
--- NOTE | 2017-03-15 11:54 | Discharge Inst-Post Device ---
Discharge Inst-Post Device Follow up/Plan follow-up with Dr. Olmedo in one to 2 weeks. Heart Healthy Diet Do not lift arm on side of device placement above head for 4 weeks. Do not push and pull heavy objects for 4 weeks. Activity as tolerated. Leave dressing on until follow up at the office. Naima UGARTE MD Mar 15, 2017 11:54 am
--- NOTE | 2017-03-15 11:58 | Cardiology Discharge Summary ---
Diagnosis/Chief Complaint Date of Admission Mar 13, 2017 at 19:33 Date of Discharge 03/15/2017 Admission Diagnosis third-degree heart block Final/Discharge Diagnosis status post dual-chamber permanent pacemaker Chief Complaint/HPI Chief Complaint/HPI 57-year-old gentleman with symptomatic third degree AV block. Discharge Summary Procedures dual chamber permanent pacemaker implantation by Dr. Olmedo Discharge Physical Examination no hematoma or discomfort left upper chest. Normal cardiac and respiratory examination Hospital Course normal chest x-ray, normal EKG this morning, normal device interrogation. Discussion & Recommendations Discussion discharge took over 30 minutes to complete. Follow up appt.: Dr. Olmedo in one to 2 weeks. Dicharge Diet: Cardiac Diet Activity as Tolerated: Yes Home Medications Reviewed patient Home Medication Reconciliation Form Discharge Home Medications: Reviewed and agree with Discharge Medication list on patient's Discharge Instruction sheet Condition at discharge stable Instructions to patient/family follow-up with Dr. Olmedo in one to 2 weeks. Clinical Quality Measures DVT/VTE Risk/Contraindication: Risk Factor Score Per Nursin RFS Level Per Nursing on Admit: 2=Moderate Naima UGARTE MD Mar 15, 2017 11:58
[2017-03-15 12:00] VITALS: BP 137/98
[2017-03-15 13:00] VITALS: BP 137/98
== END 2017-03-15 13:00 | disposition home or self-care (01) | DRG 244 ==
LOC: EDUNIT# 17:44 → ER 17:46 → ICU 19:33
PROVIDERS: ADMIT Internal Medicine; ATTEND Internal Medicine
PROC: 0JH636Z Insertion of Pacemaker, Dual Chamber into Chest Subcutaneous Tissue and Fascia, Percutaneous Approach (ICD-10-PCS; principal; 2017-03-14)
PROC: 02H63JZ Insertion of Pacemaker Lead into Right Atrium, Percutaneous Approach (ICD-10-PCS; 2017-03-14)
PROC: 02HK3JZ Insertion of Pacemaker Lead into Right Ventricle, Percutaneous Approach (ICD-10-PCS; 2017-03-14)
DX: I44.2 Atrioventricular block, complete (principal); I10 Essential (primary) hypertension; E78.5 Hyperlipidemia, unspecified; K21.9 Gastro-esophageal reflux disease without esophagitis; G47.33 Obstructive sleep apnea (adult) (pediatric); R53.83 Other fatigue; E66.9 Obesity, unspecified; Z68.33 Body mass index [BMI] 33.0-33.9, adult; E88.81 Metabolic syndrome and other insulin resistance; Z87.891 Personal history of nicotine dependence; Z82.49 Family history of ischemic heart disease and other diseases of the circulatory system
CPT/HCPCS: 33208; 36415; 71010; 80048; 80053; 83735; 84100; 84443; 84484; 85025; 85027; 93005; 93041

== ENCOUNTER 2017-03-17 08:38 | Outpatient (RCR) | payer OTHER ==
[~2017-03-17 08:38] MED LIST changes: +ATOR10TA PO; +BETA15CR4 TOP; +CEPH-507 PO; +DIAZ5TAB PO; +METO-387 PO; +VALS320T14 PO
== END 2017-03-17 08:39 | disposition home or self-care (01) ==
LOC: CARD 08:38
PROVIDERS: ATTEND Internal Medicine Cardiovascular Disease
DX: R00.1 Bradycardia, unspecified (principal); R42 Dizziness and giddiness; R07.89 Other chest pain; R53.81 Other malaise
CPT/HCPCS: 93270

== ENCOUNTER → 2017-12-25 | Outpatient (CLI) | payer BC ==
[~2017-12-25] MED LIST changes: -VALS320T14 PO; +VALS320T15 PO
--- NOTE | 2017-12-25 10:45 | Diagnostic Imaging Report ---
INDICATION: Chest discomfort and hypertension PA and lateral views of the chest are obtained. Comparison is made to the study of 03/15/2017. FINDINGS: Heart size and pulmonary vascularity are within normal limits, and the lungs are clear, bilaterally. IMPRESSION: Unremarkable chest. Dictated by: Dictated on workstation # [id number]
== END ==
LOC: CARD 10:04
PROVIDERS: ATTEND Nurse Practitioner Family
DX: R07.89 Other chest pain (principal); R06.00 Dyspnea, unspecified; Z95.0 Presence of cardiac pacemaker
CPT/HCPCS: 71046; 93005

== ENCOUNTER → 2019-03-26 | Outpatient (CLI) | payer OTHER ==
[~2019-03-26] MED LIST changes: -CYAN500T2 PO; +CYAN500T62 PO
== END ==
LOC: CARD 10:32
PROVIDERS: ATTEND Internal Medicine Cardiovascular Disease
DX: E78.1 Pure hyperglyceridemia (principal); I10 Essential (primary) hypertension; E83.42 Hypomagnesemia; R06.09 Other forms of dyspnea
CPT/HCPCS: 93306

== ENCOUNTER → 2020-12-19 | Outpatient (CLI) | payer MEDICARE, OTHER ==
[~2020-12-19] MED LIST changes: +CLN.1T PO; -CLON0.1T PO; -CYAN500T62 PO; +CYAN500T8 PO; -METO-387 PO; +MTP25TSR PO
== END ==
LOC: CARD 11:30
PROVIDERS: ATTEND Nurse Practitioner Family
DX: Z13.6 Encounter for screening for cardiovascular disorders (principal); I51.7 Cardiomegaly
CPT/HCPCS: 93005

== ENCOUNTER → 2021-08-16 | Outpatient (CLI) | payer MEDICARE, OTHER ==
[~2021-08-16] VITALS: Ht 173 cm; Wt 104.5 kg
[~2021-08-16] MED LIST changes: +ACETAMINOPHEN 500 MG TAB (TYLENOL) PO PRN; +BEBTELOVIMAB 175 MG/2 ML VIAL IV ONE; +EPINEPHrine INJECTION 1 MG/ML AMP IM PRN; +ONDANSETRON 4 MG/2 ML (SDV) Z0FRAN IV PRN; +diphenhydrAMINE 50 MG/ML INJ (BENADRYL) IV PRN
[2021-08-16 13:55] VITALS: BP 124/74
== END ==
LOC: INFUSION 13:21
PROVIDERS: ATTEND Nurse Practitioner Family
DX: U07.1 COVID-19 (principal)

== ENCOUNTER 2021-09-04 19:10 | Emergency (ER) | payer MEDICARE, OTHER ==
[~2021-09-04] VITALS: Ht 173 cm; Wt 102.0 kg
[~2021-09-04 19:10] MED LIST changes: -ACETAMINOPHEN 500 MG TAB (TYLENOL) PO PRN; -BEBTELOVIMAB 175 MG/2 ML VIAL IV ONE; -EPINEPHrine INJECTION 1 MG/ML AMP IM PRN; -ONDANSETRON 4 MG/2 ML (SDV) Z0FRAN IV PRN; -diphenhydrAMINE 50 MG/ML INJ (BENADRYL) IV PRN
--- NOTE | 2021-09-04 19:30 | ED Cardiac General ---
History of Present Illness General Stated Complaint: PACEMAKER, HAVING FLUTTERING IN HIS HEART History of Present Illness Date Seen by Provider: Sep 04, 2021 Time Seen by Provider: 19:18 Initial Comments 61-year-old male reports at 1530 today he experienced several episodes of 7 to 8 seconds feeling his heart was fluttering. he has a pacemaker that was placed by Dr. Olmedo in 2017. He has had no previous MIs. He denies any complications with his pacemaker. He takes all medications as prescribed. He took 2 aspirin prior to arrival. He has had no further episodes of the fluttering in his chest. He took his blood pressure and was concerned because it read abnormal heart rhythm. He denies any chest pain or nausea. Timing/Duration: 4-6 hours Severity: mild Location: substernal Prior CP/Workup: cardiac cath, other (pacemaker) NTG SL GROCERY CLERK MARKING: No ASA po GROCERY CLERK MARKING: Yes Associated Systoms: No Chest Pain, No Cough, No Diaphoresis, No Loss of Appetite, No Malaise, No Nausea/Vomiting, No Shortness of Air, No Syncope, No Weakness Allergies and Home Medications Allergies Coded Allergies: No Known Drug Allergies (Unverified , 12/24/10) Patient Home Medication List Home Medication List Reviewed: Yes Atorvastatin Calcium (Lipitor) 10 Mg Tablet, 10 MG PO DAILY Prescribed by: JOYCE BYRNE on 03/15/17 09 Betamethasone Dipropionate (Betamethasone Dipropionate) 15 Gm Cream..g., TOP BID PRN for SORES, (Reported) Entered as Reported by: ZACARIAS SANCHEZ on 03/14/17817 Cephalexin (Keflex) 500 Mg Capsule, 500 MG PO BID Prescribed by: Naima UGARTE on 03/15/17 115 Esomeprazole Magnesium (Nexium 24Hr) 20 Mg Tablet.dr, 20 MG PO DAILY, (Reported) Entered as Reported by: ZACARIAS SANCHEZ on 03/14/17817 Metoprolol Succinate (Metoprolol Succinate) 25 Mg Tab.er.24h, 50 MG PO DAILY Prescribed by: Naima UGARTE on 03/15/17 115 Valsartan (Valsartan) 320 Mg Tablet, 320 MG PO DAILY, (Reported) Entered as Reported by: ZACARIAS SANCHEZ on 03/14/17817 Review of Systems Review of Systems Constitutional: no symptoms reported, see HPI Cardiovascular: See HPI, Irregular Heart Rate Gastrointestinal: No Symptoms Reported, See HPI Genitourinary: No Symptoms Reported, See HPI All Other Systems Reviewed Negative Unless Noted: Yes Past Lhjcdqi-Zdigum-Qnersk Hx Immunizations Up To Date Tetanus Booster (TDap): Unknown PED Vaccines UTD: No Seasonal Allergies Seasonal Allergies: Yes Past Medical History Surgeries: Yes (ACL bilat knees, hernia repair) Abdominal, Orthopedic Respiratory: Yes Sleep Apnea Currently Using CPAP: Yes Cardiac: Yes (near syncopal episodes) High Cholesterol, Hypertension Neurological: No Reproductive Disorders: No Sexually Transmitted Disease: No HIV/AIDS: No Genitourinary: No Gastrointestinal: Yes Gastroesophageal Reflux Musculoskeletal: No Endocrine: No HEENT: No Cancer: No Psychosocial: No Integumentary: No Blood Disorders: No Family Medical History Reviewed Nursing Family Hx Abdominal aortic aneurysm 19 MOTHER, , Age:62, Onset:60 years & older Myocardial infarction 19 FATHER, , Age:61, Onset:60 years & older CAD Over 55 Years Old Physical Exam Vital Signs Vital Signs - First Documented 09/04/21 19:35 Temp 36.3 Pulse 81 Resp 15 B/P (MAP) 161/82 (108) Pulse Ox 97 O2 Delivery Room Air Capillary Refill : Height, Weight, BMI Height: 5'8.00" Weight: 218lbs. 3.0oz. 98.710636le; 33.4 BMI Method:Stated General Appearance: No Apparent Distress, WD/WN HEENT: PERRL/EOMI, TMs Normal, Normal ENT Inspection, Pharynx Normal Neck: Full Range of Motion, Normal Inspection, Non Tender, Supple Respiratory: Chest Non Tender, Lungs Clear, Normal Breath Sounds Cardiovascular: Regular Rate, Rhythm, No Edema, No Murmur, Normal Peripheral Pulses Gastrointestinal: Normal Bowel Sounds, Non Tender, Soft Extremity: Normal Capillary Refill, Normal Inspection, Normal Range of Motion Neurologic/Psychiatric: Alert, Oriented x3, No Motor/Sensory Deficits, Normal Mood/Affect Skin: Normal Color, Warm/Dry Progress/Results/Core Measures Results/Orders Lab Results Laboratory Tests Test 09/04/21 19:30 Range/Units White Blood Count 6.7 4.3-11.0 10^3/uL Red Blood Count 4.47 4.30-5.52 10^6/uL Hemoglobin 14.2 13.3-17.7 g/dL Hematocrit 42 40-54 % Mean Corpuscular Volume 93 80-99 fL Mean Corpuscular Hemoglobin 32 25-34 pg Mean Corpuscular Hemoglobin Concent 34 32-36 g/dL Red Cell Distribution Width 12.8 10.0-14.5 % Platelet Count 159 130-400 10^3/uL Mean Platelet Volume 11.8 9.0-12.2 fL Immature Granulocyte % (Auto) 0 % Neutrophils (%) (Auto) 63 42-75 % Lymphocytes (%) (Auto) 25 12-44 % Monocytes (%) (Auto) 9 0-12 % Eosinophils (%) (Auto) 3 0-10 % Basophils (%) (Auto) 0 0-10 % Neutrophils # (Auto) 4.2 1.8-7.8 10^3/uL Lymphocytes # (Auto) 1.7 1.0-4.0 10^3/uL Monocytes # (Auto) 0.6 0.0-1.0 10^3/uL Eosinophils # (Auto) 0.2 0.0-0.3 10^3/uL Basophils # (Auto) 0.0 0.0-0.1 10^3/uL Immature Granulocyte # (Auto) 0.0 0.0-0.1 10^3/uL Prothrombin Time 13.7 12.2-14.7 SEC INR Comment 1.0 0.8-1.4 Activated Partial Thromboplast Time 22 L 24-35 SEC Sodium Level 138 135-145 MMOL/L Potassium Level 4.2 3.6-5.0 MMOL/L Chloride Level 105 98-107 MMOL/L Carbon Dioxide Level 21 21-32 MMOL/L Anion Gap 12 5-14 MMOL/L Blood Urea Nitrogen 14 7-18 MG/DL Creatinine 1.41 H 0.60-1.30 MG/DL Estimat Glomerular Filtration Rate 57 BUN/Creatinine Ratio 10 Glucose Level 157 H 70-105 MG/DL Calcium Level 9.4 8.5-10.1 MG/DL Corrected Calcium 8.5-10.1 MG/DL Magnesium Level 2.1 1.6-2.4 MG/DL Total Bilirubin 1.0 0.1-1.0 MG/DL Aspartate Amino Transf (AST/SGOT) 55 H 5-34 U/L Alanine Aminotransferase (ALT/SGPT) 86 H 0-55 U/L Alkaline Phosphatase 51 40-136 U/L Myoglobin 83.2 10.0-92.0 NG/ML Troponin I < 0.028 <0.028 NG/ML Total Protein 7.4 6.4-8.2 GM/DL Albumin 4.6 H 3.2-4.5 GM/DL My Orders Orders - BUDDY PACHECO Ekg Tracing (09/04/21:18) Continuous Ekg Monitoring (09/04/21:18) Cbc With Automated Diff (09/04/21:23) Magnesium (09/04/21:) Chest 1 View, Ap/Pa Only (09/04/21:) Comprehensive Metabolic Panel (09/04/21) Myoglobin Serum (09/04/21:23) Protime With Inr (09/04/21:) Partial Thromboplastin Time (09/04/21:23) Monitor-Rhythm Ecg Trace Only (09/04/21:23) Ed Iv/Invasive Line Start (09/04/21 19:23) Troponin I [place] (09/04/21 19:30) Ed Iv/Invasive Line Start (09/04/21 20:24) Ns Iv 500 Ml (Sodium Chloride 0.9%) (09/04/21 20:30) Medications Given in ED Current Medications Medications Dose Ordered Sig/Kelly Route Start Time Stop Time Status Last Admin Dose Admin Sodium Chloride 500 ml @ 0 mls/hr Q0M ONCE IV 09/04/21 20:30 09/04/21 20:31 DC 09/04/21 20:30 500 MLS/HR Vital Signs/I&O 09/04/21 09/04/21 19:35 21:09 Temp 36.3 Pulse 81 60 Resp 15 18 B/P (MAP) 161/82 (108) 123/74 Pulse Ox 97 94 O2 Delivery Room Air Room Air Progress Progress Note : Time: :18 Progress Note patient seen and evaluated, will obtain EKG and analysis of Pacemaker. Labs and chest x-ray. 1939 per medtronic pacemaker interrogation, no abnormalities noted. 2004 patient denies any chest pain, palpitations or flutters. Will give normal saline 500 mL per IV. 2054 all labs within normal limits with no elevation in troponin. Patient's continued to be asymptomatic. Discharge instructions and return precautions reviewed. Initial ECG Impression Date: Sep 04, 2021 Initial ECG Impression Time: 19:26 Initial ECG Rate: 60 Initial ECG Rhythm: Normal Sinus Initial ECG Intervals: Normal Initial ECG Intervals [place] 205, QRSD 97 QT 365, QTc 366. [place] P 187, RR 11, T 45 Initial ECG Impression: Normal Initial ECG Comparisson: Unchanged Diagnostic Imaging Diagonstic Imaging: Xray Plain Films/CT/US/NM/MRI: chest Comments NAME: ELTON FOWLER [facility] REC#: [id number] PT STATUS: REG ER : 1960 PHYSICIAN: BUDDY PACHECO ADMIT DATE: 09/04/21/ER Signed Date of Exam:09/04/21 CHEST 1 VIEW, AP/PA ONLY Indication: Chest pain Portable chest 7:43 PM There is a dual-chamber pacemaker. Heart size and pulmonary vascularity are normal. Lungs are clear. There are no effusions or pneumothoraces. IMPRESSION: No acute abnormalities in the chest Dictated by: Dictated on workstation # [id number] Dict: 09/04/211942 Trans: 09/04/211943 TC [id number] Interpreted by: TRISH TORRES MD Electronically signed by: TRISH TORRES MD 09/04/211943 Reviewed: Reviewed by Me Departure Impression Primary Impression: Periodic heart flutter Disposition: 01 HOME, SELF-CARE Condition: Improved Departure-Patient Inst. Decision time for Depature: 20:55 Referrals: ARUNA MOELLER MD (PCP/Family) Primary Care Physician Patient Instructions: Palpitations (DC) Add. Discharge Instructions: Continue to monitor your symptoms. Call for follow-up with Dr. Olmedo. Return to the emergency department if heart palpitations are detected or chest pain begins. Continue on your low-carb diet and increased exercise. Follow-up with your primary care provider as needed. Copy Copies To 1: JOSE DE JESUS OLMEDO MD, AMY ARNP Sep 04, 2021 19:29
[2021-09-04 19:36] LABS: BASOPHILS % (AUTO) 0 % (0-10); EOSINOPHILS # (AUTO) 0.2 10^3/uL (0.0-0.3); EOSINOPHILS % (AUTO) 3 % (0-10); HEMATOCRIT 42 % (40-54); HEMOGLOBIN 14.2 g/dL (13.3-17.7); LYMPHOCYTES # (AUTO) 1.7 10^3/uL (1.0-4.0); LYMPHOCYTES % (AUTO) 25 % (12-44); MEAN CORPUSCULAR HEMOGLOBIN 32 pg (25-34); MEAN CORPUSCULAR HGB CONC 34 g/dL (32-36); MEAN CORPUSCULAR VOLUME 93 fL (80-99); MEAN PLATELET VOLUME 11.8 fL (9.0-12.2); MONOCYTES # (AUTO) 0.6 10^3/uL (0.0-1.0); MONOCYTES % (AUTO) 9 % (0-12); NEUTROPHILS # (AUTO) 4.2 10^3/uL (1.8-7.8); NEUTROPHILS % (AUTO) 63 % (42-75); PLATELET COUNT 159 10^3/uL (130-400); WHITE BLOOD COUNT 6.7 10^3/uL (4.3-11.0)
--- NOTE | 2021-09-04 19:45 | Diagnostic Imaging Report ---
Indication: Chest pain Portable chest 7:43 PM There is a dual-chamber pacemaker. Heart size and pulmonary vascularity are normal. Lungs are clear. There are no effusions or pneumothoraces. IMPRESSION: No acute abnormalities in the chest Dictated by: Dictated on workstation # [id number]
[2021-09-04 19:56] LABS: PROTHROMBIN TIME PATIENT 13.7 SEC (12.2-14.7)
[2021-09-04 20:05] LABS: ALANINE AMINOTRANSFERASE 86 U/L (0-55); ALBUMIN 4.6 GM/DL (3.2-4.5); ALKALINE PHOSPHATASE 51 U/L (40-136); BUN/CREATININE RATIO 10; CALCIUM 9.4 MG/DL (8.5-10.1); CARBON DIOXIDE 21 MMOL/L (21-32); CREATININE SERUM 1.41 MG/DL (0.60-1.30); GFR ESTIMATED 57; GLUCOSE 157 MG/DL (70-105); MAGNESIUM 2.1 MG/DL (1.6-2.4); TOTAL PROTEIN 7.4 GM/DL (6.4-8.2)
[2021-09-04] MEDS ORDERED: NS IV 500 ML 500 ML IV ONE (20:30)
[2021-09-04 20:54] LABS: CHLORIDE 105 MMOL/L (98-107); POTASSIUM 4.2 MMOL/L (3.6-5.0); SODIUM 138 MMOL/L (135-145)
[2021-09-04 21:09] VITALS: BP 123/74
== END 2021-09-04 21:05 | disposition home or self-care (01) ==
LOC: EDUNIT# 19:10 → ER 19:15
DX: I48.92 Unspecified atrial flutter (principal); G47.30 Sleep apnea, unspecified; I10 Essential (primary) hypertension; Z99.89 Dependence on other enabling machines and devices; Z95.0 Presence of cardiac pacemaker; Z79.82 Long term (current) use of aspirin; Z79.899 Other long term (current) drug therapy
CPT/HCPCS: 36415; 71045; 80053; 83735; 83874; 84484; 85025; 85610; 85730; 93005; 93041

== ENCOUNTER → 2023-03-03 | Outpatient (CLI) | payer MEDICARE, OTHER ==
--- NOTE | 2023-03-03 11:02 | Diagnostic Imaging Report ---
PROCEDURE: CT sinuses without contrast TECHNIQUE: Multiple contiguous axial images were obtained through the sinuses without the use of intravenous contrast. Coronal and sagittal reformations were then performed. Auto Exposure Controls were utilized during the CT exam to meet ALARA standards for radiation dose reduction. INDICATION: Chronic maxillary sinusitis. COMPARISON: None available. FINDINGS: The paranasal sinuses are clear without significant mucosal thickening or air-fluid level. The mastoid air cells and middle ear cavities are clear. The lamina papyracea are intact. No temporomandibular joint dislocation. No mucoperiosteal thickening of the maxillary sinus davila. The bilateral ostiomeatal complexes appear patent. Minimal leftward nasal septal deviation. No large nasal septal spur. No significant smiley bullosa. No acute facial fracture. The orbits are unremarkable. No intracranial midline shift or destructive hydrocephalus within the muscles of mastication appear unremarkable. The visualized parapharyngeal fat is symmetric and well-maintained. IMPRESSION: No acute abnormality. In particular, there is no evidence of acute or chronic sinusitis. Dictated by: Dictated on workstation # [id number]
== END ==
LOC: RAD 08:55
PROVIDERS: ATTEND Nurse Practitioner Family
DX: J32.0 Chronic maxillary sinusitis (principal)
CPT/HCPCS: 70486